=== PATIENT | male | born 1955 | race Caucasian/White ===

== ENCOUNTER → 2020-07-23 10:00 | Outpatient (BNVA) | payer MEDICARE, SELFPAY | PROVIDERS: PCP Hospitalist; Visit Provider Nurse Practitioner | DX: D12.6 Benign neoplasm of colon, unspecified (principal) | CPT/HCPCS: Q3014 ==

== ENCOUNTER 2020-09-09 18:48 | Emergency (ER) | payer BC, SELFPAY ==
--- NOTE | ~2020-09-09 | US_ITS ---
EXAMINATION: US VENOUS ULTRASOUND WITH DOPPLER LOWER EXTREMITY, RIGHT CLINICAL INFORMATION: Redness, warmth, and swallowing COMPARISON: None TECHNIQUE: Ultrasound of the deep veins is performed from the hip to the calf with compression sonography and color and pulse Doppler assessment. Spectral analysis with color-flow imaging is performed. FINDINGS: There is normal venous compression and respiratory variation and augmented flow to the deep venous system. The visualized common femoral vein, superficial femoral vein, profunda femoral vein, popliteal vein, and the trifurcation region shows no evidence of deep venous thrombosis. There is a small 3.4 x 1.0 x 2.6 cm Garcia cyst incidentally noted. Prominent lymph nodes seen in the right groin. There is superficial thrombus seen within a varicose vein along the medial distal thigh extending to the area of the knee. This corresponds to the area of patient's pain and redness US/US venous duplex LE RT IMPRESSION: No deep venous thrombosis demonstrated in the right lower extremity however there does appear to be superficial thrombus within a superficial varicose vein corresponding to the area of the patient's redness and pain. This critical result was discussed with Dr Smith at 09/09/2020 10:48 PM and it was ascertained that the content and urgency of the report was understood at the time of direct communication.
[2020-09-09 20:30] VITALS: BP 142/110; PULSE 84; RESP 18; TEMP 37; O2SAT 98; BMI 33.6
[2020-09-09 21:00] LABS: MANUAL DIFF FLAG NO
[2020-09-09 21:01] LABS: Basophils Absolute Auto 0.1 X10*3/uL (0.0-0.2); Basophils Percent Auto 0.6 % (0-2); Eosinophils Absolute Auto 0.3 X10*3/uL (0.0-0.4); Eosinophils Percent Auto 2.9 % (0-4); Hematocrit 46.1 % (42-52); Hemoglobin 15.1 g/dl (14.0-18.0); Imm Gran Abs Auto 0.03 X10*3/uL (0.00-0.03); Imm Gran Pct Auto 0.3 % (0.0-0.4); Lymphocytes Absolute Auto 3.7 X10*3/uL (1.2-4.9); Lymphocytes Percent Auto 34.5 % (20-40); Mean Corpuscular HGB Conc 32.8 g/dl (31.0-36.0); Mean Corpuscular Hemoglobin 31.6 pg (27.0-33.0); Mean Corpuscular Volume 96.4 fL (80-98); Monocytes Absolute Auto 1.5 X10*3/uL (0.1-1.2); Monocytes Percent Auto 13.5 % (2-11); Neutrophils Absolute Auto 5.2 X10*3/uL (2.0-8.3); Neutrophils Percent Auto 48.2 % (45-73); Platelet Count 273 X10*3/uL (160-400); Red Blood Count 4.78 X10*6/uL (4.60-5.80); Red Cell Distribution Width 13.3 % (11.0-16.0); White Blood Count 10.8 X10*3/uL (4.8-10.8)
[2020-09-09 21:22] LABS: Prothrombin Time 12.4 SEC (10.8-13.0)
[2020-09-09 21:24] LABS: Partial Thromboplastin Time 35.1 SEC (24.1-38.0)
[2020-09-09 21:32] LABS: Alanine Aminotransferase 23 U/L (0-40); Albumin Level 4.2 g/dL (3.5-5.0); Alkaline Phosphatase 92 U/L (39-117); Anion Gap 12 (12-20); Aspartate Amino Transferase 14 U/L (5-37); Bilirubin Total 0.3 mg/dL (0.0-1.0); Blood Urea Nitrogen 18 mg/dL (9-16); Calcium 9.1 mg/dL (8.4-10.2); Carbon Dioxide 28 mmol/L (22-29); Chloride 107 mmol/L (96-108); Creatinine Clr Calc Pharmacy 78.5; Estimated Glomerular Filt Rate 59; Glucose Random 87 mg/dL (60-115); Sodium 143 mmol/L (135-145); Total Protein 6.9 g/dL (6.5-8.0)
--- NOTE | 2020-09-09 23:07 | ED_ITS ---
HPI - General Adult General Chief complaint: Skin/Abscess/Foreign Body Stated complaint: ? blood clot Time Seen by Provider: 09/09/20 22:49 Source: patient Mode of arrival: ambulatory Limitations: no limitations History of Present Illness HPI narrative: 65-year-old man who presents emergency department for evaluation of pain in his right lower extremity for 2 weeks. The patient states that he has a varicose vein his right lower extremity. He states that he developed a pain in his pretibial area of his right leg just below the knee. He states that the pain traveled up above his knee to the area where had the varicose vein. He states that the area with the varicose vein is is now swollen, red and warm to t he touch. He states that he has mild pain in this area constantly but if he pushes on the area the pain is severe and 8/10. He denied fever, chills, chest pain, shortness of breath, dyspnea on exertion. The patient states that he had a cellulitis of his upper extremity in the past and had a PICC line which then developed a DVT of his right upper extremity. He did require anticoagulant therapy for this DVT. Related Data Previous Rx's Medication Instructions Recorded bisacodyl 5 mg tablet,delayed 10 mg PO BEDTIME 2 Days #4 tab 07/23/20 release polyethylene glycol 3350 17 238 g PO ONCE 1 Days #238 g 07/23/20 gram/dose oral powder cephalexin 500 mg PO QID 7 Days #28 cap 09/09/20 Allergies Allergy/AdvReac Type Severity Reaction Status Date / Time No Known Allergies Allergy Verified 09/09/20 20:30 [No Known Allergies*] Review of Systems Review of Systems: Yes all other systems are reviewed and are negative [facility] Past Medical History [facility] Narrative: Patient has a history of COPD, cellulitis, right upper extremity DVT secondary to PICC line. The patient smokes 1/2 packs of ci garettes per day times 50 years, denies alcohol and drug use. Medical History Blood clot due to device, implant, or graft Cellulitis COPD (chronic obstructive pulmonary disease) Social History Social History Advance Directives: No Advance Directives Information Provided: No Physical Exam Vital Signs: Vital Signs: Last Vital Signs Temp 98.6 F 09/09/20 20:30 Pulse 84 09/09/20 20:30 Resp 18 09/09/20 20:30 BP 142/110 H 09/09/20 20:30 Pulse Ox 98 09/09/20 20:30 Body Mass Index 33.6 Const: General: cooperative Orientation/consciousness: oriented to person and oriented to place Limitations: no limitations HENMT: Head: Yes normal to inspection, Yes normocephalic and Yes atraumatic Ears: external ears normal General nose exam: Normal external nose present Face and sinus: Yes normal facial exam Mouth: Normal oral and palatal mucosa present Throat: Yes posterior oropharynx normal Eyes: Periorbital: periorbital findings normal Eyelids: Yes eyelids normal Conjunctivae: conjunctivae normal Sclerae: sclerae normal Corneas: corneas normal Pupils: Equal, round and reactive pupils present Direct Ophthalmoscopy: normal light reflex Neck: Neck: Yes full ROM, Yes no lymphadenopathy, Yes no meningeal signs, Yes trachea midline and Yes supple Chest: Chest palpation & inspection: normal inspection of the chest and normal palpation of entire chest wall Resp: Effort & Inspection: normal respiratory effort and able to speak in complete sentences Auscultation: clear to auscultation bilaterally Cardio: Rate: regular rate Rhythm: regular rhythm Heart sounds: S1 normal heart sound present, S2 normal heart sound present and no murmurs GI: Inspection: Yes normal to inspection Palpation (GI): Soft to palpation, nontender, no guarding, not rigid and No hepatosplenomegaly present : General: Yes no CVA tenderness Back/Spine/Pelvis: Back: no CVA tenderness Cervical Spine: normal cervical lordosis Thoracic/Lumbar Spine: thoracic and lumbar spine normal to inspection Skin: Lesions: no lesions Wounds: no wounds Neuro: General: oriented to person, oriented to place and no meningeal signs Cranial nerves: Yes CN's II-XII intact bilaterally and Yes Equal, round and reactive pupils present Cognition (Neuro): normal cognition Motor exam (neuro): 5/5 motor strength present throughout Extrem: Other: The patient has tenderness with palpation of a superficial vein just below the right knee. This tenderness progresses along the vein approximately to just above the medial aspect of the right knee where there is an area of increased warmth and erythema measuring 4 x 4 cm. The tenderness in this area is moderate to severe. Psych: Appearance: well kempt Mental Status: mental status grossly normal Speech and movement: Normal speech and movement present Affect: normal affect Attitude: cooperative Thought process: Normal thought process present Thought content: Normal thought content present Course Course Course Narrative: 65-year-old male who presents emergency department for evaluation of right lower extremity pain with increased erythema and warmth to an area just above his right knee. Physical examination does reveal tenderness along a superficial vein which starts below the right knee and extends medially to just above the right knee. The area above the right knee is warm to the touch with erythema measuring approximately 4 x 4 cm. Laboratory evaluation [place] [address]. PT, INR and PTT were normal. Doppler ultrasound revealed no DVT but there does appear to be a superficial thrombus with a superficial varicose vein corresponding to the area of the patient's redness and pain. The patient's presentation and findings are consistent with superficial thrombophlebitis. At this time I do not think patient needs anticoagulants. The patient does have some increased erythema and warmth and concerned that he may have cellulitis secondary to the superficial thrombophlebitis. Patient was given Keflex 500 mg orally and ibuprofen 600 mg orally in the emergency department. The patient was prescribed Keflex 500 mg 4 times a day for 7 days. He was advised to take ibuprofen Tylenol for pain and to use a heating pad on low for 20 minutes 4 to 6 times a day. Medical Decision Making Lab Data Result diagrams: 09/09/20 20:55 09/09/20 20:55 Labs: Lab Results 09/09/20 09/09/20 09/09/20 Range/Units 20:55 20:55 20:55 WBC 10.8 (4.8-10.8) X10*3/uL RBC 4.78 (4.60-5.80) X10*6/uL Hgb 15.1 (14.0-18.0) g/dl Hct 46.1 (42-52) % MCV 96.4 (80-98) fL MCH 31.6 (27.0-33.0) pg MCHC 32.8 (31.0-36.0) g/dl RDW 13.3 (11.0-16.0) % Plt Count 273 (160-400) X10*3/uL MPV 9.0 L (9.4-12.4) fL Immature Gran % (Auto) 0.3 (0.0-0.4) % Neut % (Auto) 48.2 (45-73) % Lymph % (Auto) 34.5 (20-40) % Obion % (Auto) 13.5 H (2-11) % Eos % (Auto) 2.9 (0-4) % Baso % (Auto) 0.6 (0-2) % Lymph # (Auto) 3.7 (1.2-4.9) X10*3/uL [place] # (Auto) 1.5 H (0.1-1.2) X10*3/uL Eos # (Auto) 0.3 (0.0-0.4) X10*3/uL Baso # (Auto) 0.1 (0.0-0.2) X10*3/uL Abs Immat Gran (auto) 0.03 (0.00-0.03) X10*3/uL Absolute Neuts (auto) 5.2 (2.0-8.3) X10*3/uL Absolute Nucleated RBC 0.000 (0.0-0.012) X10*3/uL Nucleated RBC % (auto) 0.0 (0.0-0.2) /100WBC PT 12.4 (10.8-13.0) SEC INR 1.0 (0.9-1.1) APTT 35.1 (24.1-38.0) SEC Sodium 143 (135-145) mmol/L Potassium 4.0 (3.3-5.1) mmol/L Chloride 107 (96-108) mmol/L Carbon Dioxide 28 (22-29) mmol/L Anion Gap 12 (12-20) BUN 18 H (9-16) mg/dL Creatinine 1.23 (0.5-1.4) mg/dL Estim Creat Clear Calc 78.5 Estimated GFR 59 Random Glucose 87 (60-115) mg/dL Calcium 9.1 (8.4-10.2) mg/dL Total Bilirubin 0.3 (0.0-1.0) mg/dL AST 14 (5-37) U/L ALT 23 (0-40) U/L Alkaline Phosphatase 92 (39-117) U/L Total Protein 6.9 (6.5-8.0) g/dL Albumin 4.2 (3.5-5.0) g/dL Discharge Plan Discharge Clinical Impression: Superficial phlebitis and thrombophlebitis of right lower extremity Cellulitis Qualifiers: Site of cellulitis: extremity Site of cellulitis of extremity: lower extremity Laterality: right Qualified Code(s): L03.115 - Cellulitis of right lower limb Patient Disposition: Home, Self-Care Instructions: Superficial Thrombophlebitis (ED) Additional Instructions: Your blood work was unremarkable. The Doppler ultrasound of your right lower extremity revealed no deep venous thrombosis which is reassuring. The Doppler ultrasound revealed that you have a superficial blood clot in the varicose vein in your right leg. I also believe that you may have a skin infection (cellulitis) secondary to the superficial blood clot. Take ibuprofen 200 mg pills, 3 pills every 6 hours as needed for pain. Take Tylenol (acetaminophen) 500 mg pills, 2 pills every 4 to 6 hours as needed for pain. Use a heating pad on low for 20 minutes 4 to 6 times a day on the area of pain to help increase the blood flow to this area and to help fight the infection. Follow-up with your doctor in 2 days. Please return to the emergency department if your symptoms get worse or if you develop any symptoms that are concerning to you. Prescriptions: New cephalexin 500 mg capsule 500 mg PO QID 7 Days Qty: 28 RF: 0 No Action bisacodyl [Dulcolax (bisacodyl)] 5 mg tablet,delayed release (DR/EC) 10 mg PO BEDTIME 2 Days Qty: 4 RF: 0 polyethylene glycol 3350 [Miralax] 17 gram/dose powder 238 g PO ONCE 1 Days Qty: 238 RF: 0
[2020-09-10] MEDS: Ibuprofen 600 MG TABLET PO (00:36)
[2020-09-10] MEDS: cephALEXin 500 MG CAPSULE PO (00:36)
== END 2020-09-10 00:39 | disposition home or self-care (01) ==
PROVIDERS: Emergency Provider Emergency Medicine Emergency Medical Services
DX: I80.01 Phlebitis and thrombophlebitis of superficial vessels of right lower extremity (principal); L03.115 Cellulitis of right lower limb; L53.9 Erythematous condition, unspecified; M79.661 Pain in right lower leg; Z86.718 Personal history of other venous thrombosis and embolism
CPT/HCPCS: 36415; 80053; 85025; 85610; 85730; 93971; 99283; 99284

== ENCOUNTER 2020-10-21 15:56 | Emergency (ER) | payer BC, SELFPAY ==
--- NOTE | ~2020-10-21 | XR_ITS ---
EXAMINATION: XR KNEE, LEFT CLINICAL INFORMATION: Knee injury COMPARISON: None TECHNIQUE: Four views of the left knee. FINDINGS: Bones and soft tissues are normal. No fracture or joint effusion. Alignment is anatomic. Mild medial compartment joint space narrowing.. No abnormal soft tissue calcification. 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 No acute traumatic findings.
--- NOTE | ~2020-10-21 | US_ITS ---
EXAMINATION: US VENOUS ULTRASOUND WITH DOPPLER LOWER EXTREMITY, LEFT CLINICAL INFORMATION: Leg pain COMPARISON: None TECHNIQUE: Ultrasound of the deep veins is performed from the hip to the calf with compression sonography and color and pulse Doppler assessment. Spectral analysis with color-flow imaging is performed. FINDINGS: There is normal venous compression and respiratory variation and augmented flow. The visualized common femoral vein, superficial femoral vein, profunda femoral vein, popliteal vein, and the trifurcation region shows no evidence of deep venous thrombosis. There is no significant popliteal fossa cyst. If the patient's symptoms persist, followup ultrasound in 5 days 7 days might be of value to exclude proximal propagation from a non-visualized calf vein. US/US venous duplex LE LT IMPRESSION: No DVT demonstrated in the left lower extremity.
[2020-10-21 16:57] VITALS: BP 146/91; PULSE 88; RESP 18; TEMP 36.6; O2SAT 98; BMI 34.6
[2020-10-21 18:22] VITALS: BP 147/88; PULSE 86; RESP 14; O2SAT 98
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
--- NOTE | 2020-10-21 20:09 | PC.NURSE ---
ANNE WRAP APPLIED TO L KNEE FOR COMFORT.
== END 2020-10-21 20:13 | disposition home or self-care (01) ==
PROVIDERS: Emergency Provider Internal Medicine
DX: S83.92XA Sprain of unspecified site of left knee, initial encounter (principal); Z86.718 Personal history of other venous thrombosis and embolism; X58.XXXA Exposure to other specified factors, initial encounter; Y93.9 Activity, unspecified; Y92.9 Unspecified place or not applicable; Y99.9 Unspecified external cause status
CPT/HCPCS: 73564; 93971; 99283; 99284

== ENCOUNTER 2022-06-11 11:47 | Emergency (ER) | payer MEDICARE, SELFPAY ==
--- NOTE | ~2022-06-11 | XR_ITS ---
EXAMINATION: XR HIP RIGHT WITH PELVIS XR LUMBAR SPINE CLINICAL INFORMATION: Lower back pain and hip pain. COMPARISON: None TECHNIQUE: Lumbar spine, 3 views Pelvis, AP view Right hip, 2 views FINDINGS: LUMBAR SPINE: No acute findings. The lumbar vertebra are of normal height and alignment with exception of minimal degenerative retrolisthesis of L2 on L3. The intervertebral disc spaces are well-preserved at L1-L2 and L5-S1. Otherwise, mild to moderate degenerative disc space loss and large osteophytes of the lumbar spine. There is facet arthropathy of L3-L4 and L4-L5. No suspicious bone lesion. There are likely enthesophytes at the anterosuperior aspect of each sacroiliac joint. Sacral ala and sacroiliac joints are intact. There is mild atherosclerotic calcification of the aorta. Normal bowel gas pattern. Surgical clips are present in the pelvis. PELVIS AND RIGHT HIP: Pelvic bones have normal alignment. No suspicious bone lesions. The pubic symphysis is normal. There are osteophytes of both hips. The 2 views the right hip show the femoral head to be well-positioned within the intact acetabulum. There appears to be mild superomedial narrowing of the joint space. No evidence of fracture or osteonecrosis. XR/XR lumbar spine 4V min IMPRESSION: * No acute abnormalities. * No compression fractures within the moderately degenerated lumbar spine. * Mild-to moderate osteoarthritis of the hips.
--- NOTE | ~2022-06-11 | XR_ITS ---
EXAMINATION: XR HIP RIGHT WITH PELVIS XR LUMBAR SPINE CLINICAL INFORMATION: Lower back pain and hip pain. COMPARISON: None TECHNIQUE: Lumbar spine, 3 views Pelvis, AP view Right hip, 2 views FINDINGS: LUMBAR SPINE: No acute findings. The lumbar vertebra are of normal height and alignment with exception of minimal degenerative retrolisthesis of L2 on L3. The intervertebral disc spaces are well-preserved at L1-L2 and L5-S1. Otherwise, mild to moderate degenerative disc space loss and large osteophytes of the lumbar spine. There is facet arthropathy of L3-L4 and L4-L5. No suspicious bone lesion. There are likely enthesophytes at the anterosuperior aspect of each sacroiliac joint. Sacral ala and sacroiliac joints are intact. There is mild atherosclerotic calcification of the aorta. Normal bowel gas pattern. Surgical clips are present in the pelvis. PELVIS AND RIGHT HIP: Pelvic bones have normal alignment. No suspicious bone lesions. The pubic symphysis is normal. There are osteophytes of both hips. The 2 views the right hip show the femoral head to be well-positioned within the intact acetabulum. There appears to be mild superomedial narrowing of the joint space. No evidence of fracture or osteonecrosis. XR/XR hip RT w PEL1V IMPRESSION: * No acute abnormalities. * No compression fractures within the moderately degenerated lumbar spine. * Mild-to moderate osteoarthritis of the hips.
[2022-06-11 11:58] VITALS: BP 126/82; PULSE 97; RESP 20; TEMP 36.7; O2SAT 97; BMI 33.9
--- NOTE | 2022-06-11 11:58 | ED.BACK ---
HPI - Back Pain/Injury General Chief Complaint: Extremity Problem <BERRY Call - Last Filed: 06/11/22 12:03> Stated Complaint: leg , back pain <BERRY Call Last Filed: 06/11/22 12:03> Time Seen by Provider: 06/11/22 13:40 <BERRY Call - Last Filed: 06/11/22 12:03> Source: patient <BERRY Peres - Last Filed: 06/12/22 09:14> Mode of arrival: ambulatory <BERRY Peres - Last Filed: 06/12/22 09:14> History of Present Illness HPI Narrative: 67-year-old male with a past medical history of cellulitis, COPD, presenting to the ED complaining of right-sided low back/hip/buttock pain radiating down right lower extremity intermittent since last week. Reports symptoms started after playing golf on vacation in [place]. Has been seeing chiropractor with minimal relief. Reports intermittent paresthesias down RLE. Denies direct injury/trauma or fall, numbness, weakness, urinary incontinence/retention, fever, hematuria/dysuria, flank pain <BERRY Peres - Last Filed: 06/12/22 09:14> MD elicited complaint: back pain <BERRY Peres - Last Filed: 06/12/22 09:14> Onset (ago): week(s) <BERRY Peres - Last Filed: 06/12/22 09:14> Related Data Home Medications: Previous Rx's Medication Instructions Recorded bisacodyl 5 mg tablet,delayed 10 mg PO BEDTIME 2 days #4 tabs 07/23/20 release (Dulcolax (bisacodyl)) polyethylene glycol 3350 17 238 g PO ONCE 1 day #238 grams 07/23/20 gram/dose oral powder (Miralax) cephalexin 500 mg capsule 500 mg PO QID 7 days #28 caps 09/09/20 acetaminophen 500 mg tablet 500 mg PO Q6H PRN fever or pain 06/11/22 (Tylenol Extra Strength) #14 tabs cyclobenzaprine 5 mg tablet 5 mg PO Q8H PRN pain (scale score 06/11/22 7-10) 5 days #14 tabs lidocaine 5 % topical patch 1 patch topical DAILY PRN pain #30 06/11/22 (Lidoderm) ea naproxen 500 mg tablet 500 mg PO BID PRN pain 10 days #20 06/11/22 tabs <BERRY Call - Last Filed: 06/11/22 12:03> Allergies/Adverse Reactions: Allergies Allergy/AdvReac Type Severity Reaction Status Date / Time No Known Allergies Allergy Verified 10/21/20 16:57 [No Known Allergies*] <BERRY Call - Last Filed: 06/11/22 12:03> Review of Systems Review of Systems: Constitutional: No Fever, No Chills ENT/Mouth: No Ear Pain, No Nasal Congestion, No sore throat, No Rhinorrhea, No Swallowing Difficulty Cardiovascular: No Chest Pain, No SOB Respiratory: No Cough, No Sputum Gastrointestinal: No Nausea, No Vomiting, No Diarrhea, No Constipation, No Abdominal pain Genitourinary: No Dysuria, No Urinary Frequency, No Hematuria, No Urinary Incontinence/retention, No Flank Pain Musculoskeletal: + joint pain, No Myalgias, No Joint Swelling Skin: No Skin Lesions, No rash Neuro: No Weakness, No Numbness, + Paresthesias <BERRY Peres - Last Filed: 06/12/22 09:14> Yes all other systems are reviewed and are negative <BERRY Peres - Last Filed: 06/12/22 09:14> Constitutional: Constitutional: Reports as per HPI <BERRY Peres - Last Filed: 06/12/22 09:14> COUNT INCLUDES THE [facility] Past Medical History Attestation statement: The following information was validated with the patient. <BERRY Peres - Last Filed: 06/12/22 09:14> Medical History: Medical History Blood clot due to device, implant, or graft Cellulitis COPD (chronic obstructive pulmonary disease) <BERRY Call - Last Filed: 06/11/22 12:03> Social History Social History: Social History Advance Directives: No <BERRY Call - Last Filed: 06/11/22 12:03> Physical Exam Vital Signs: Vital Signs: Last Vital Signs Temp 98.0 F 06/11/22 11:58 Pulse 97 06/11/22 11:58 Resp 20 06/11/22 11:58 BP 126/82 06/11/22 11:58 Pulse Ox 97 06/11/22 11:58 O2 Del Method 06/11/22 11:58 BMI result Body Mass Index 33.9 <BERRY Call - Last Filed: 06/11/22 12:03> Vital Signs: Last Vital Signs Temp 98.0 F 06/11/22 11:58 Pulse 97 06/11/22 11:58 Resp 20 06/11/22 11:58 BP 126/82 06/11/22 11:58 Pulse Ox 97 06/11/22 11:58 O2 Del Method 06/11/22 11:58 BMI result Body Mass Index 33.9 <BERRY Peres - Last Filed: 06/12/22 09:14> Vital Signs: Last Vital Signs Temp 98.0 F 06/11/22 11:58 Pulse 97 06/11/22 11:58 Resp 20 06/11/22 11:58 BP 126/82 06/11/22 11:58 Pulse Ox 97 06/11/22 11:58 O2 Del Method 06/11/22 11:58 BMI result Body Mass Index 33.9 <Bert Burns MD - Last Filed: 06/18/22 16:30> Const: General: cooperative, healthy appearing and no acute distress <BERRY Peres - Last Filed: 06/12/22 09:14> Orientation/consciousness: patient oriented x3 <BERRY Peres - Last Filed: 06/12/22 09:14> Limitations: no limitations <BERRY Peres - Last Filed: 06/12/22 09:14> HEENT: Head: Yes normal to inspection and Yes atraumatic <BERRY Peres - Last Filed: 06/12/22 09:14> Ears: hearing grossly normal bilaterally <BERRY Peres - Last Filed: 06/12/22 09:14> General nose exam: Normal external nose present <BERRY Peres - Last Filed: 06/12/22 09:14> Face and sinus: Yes normal facial exam <Amanda Sherisera PA - Last Filed: 06/12/22 09:14> Eyes: General: appearance normal, both eyes and all related structures <Amanda Sherisera PA - Last Filed: 06/12/22 09:14> EOM: EOMs intact bilaterally <Amanda Sherisera PA - Last Filed: 06/12/22 09:14> Neck: Neck: Yes normal visual inspection and Yes no meningeal signs <Amanda Sherisera PA - Last Filed: 06/12/22 09:14> Resp: Effort & Inspection: normal respiratory effort and no respiratory distress <Amanda Sherisera PA - Last Filed: 06/12/22 09:14> Cardio: Rate: regular rate <Amanda Sherisera PA - Last Filed: 06/12/22 09:14> Heart sounds: S1 normal heart sound present and S2 normal heart sound present <Amanda Sherisera PA - Last Filed: 06/12/22 09:14> GI: Inspection: Yes normal to inspection <Amanda Sherisera PA - Last Filed: 06/12/22 09:14> Palpation (GI): Soft to palpation, nontender, no guarding and not rigid <Amanda Sherisera PA - Last Filed: 06/12/22 09:14> : General: Yes no CVA tenderness <Amanda Sherisera PA - Last Filed: 06/12/22 09:14> Back/Spine/Pelvis: Other: No midline thoracic/lumbar spinous tenderness/step-off or deformity. + right-sided lumbar paraspinal/MSK and right buttock tenderness to palpation reproducing subjective complaint. No erythema/ecchymosis or crepitus. Full range of motion intact with pain. Neurovascular intact distally. <Amanda Donaldson PA - Last Filed: 06/12/22 09:14> Back: no CVA tenderness <Amanda Donaldson PA - Last Filed: 06/12/22 09:14> Skin: Rashes: no rashes <Amanda Donaldson PA - Last Filed: 06/12/22 09:14> Wounds: no wounds <Amanda Poulsera PA - Last Filed: 06/12/22 09:14> Neuro: Other: Strength intact throughout. No saddle anesthesia. Sensation intact to light touch. Neurovascular intact distally <BERRY Peres - Last Filed: 06/12/22 09:14> General: patient oriented x3, gait normal, tone normal, moves all extremities, no meningeal signs and no focal motor deficits <BERRY Peres - Last Filed: 06/12/22 09:14> Gait exam (Neuro): Normal gait present <BERRY Peres Last Filed: 06/12/22 09:14> Extrem: General: Yes normal to inspection <BERRY Peres - Last Filed: 06/12/22 09:14> Course Course Course Narrative: RME- 12:03pm 67yoM with a past medical history of COPD who is a daily smoker, DVT, kidney stone, anxiety who is presenting to the ER with complaints of lower back pain that radiates to his right hip/buttocks and right lower leg that has been intermittent since February. Reports he has been seen a chiropractor and is providing mild to no symptomatic relief. Reports that he does go off. Denies any recent falls. Denies history of cancer, fevers, urinary bowel incontinence or retention, IV drug use, abdominal pain, nausea/vomiting, hematuria, dysuria, lower extremity edema or any other symptoms complaints or concerns at this time. Plan: Will obtain lumbar and right hip x-ray patient will be sent back to the waiting room to be evaluated in [facility]. <BERRY Call - Last Filed: 06/11/22 12:03> RME- 12:03pm 67yoM with a past medical history of COPD who is a daily smoker, DVT, kidney stone, anxiety who is presenting to the ER with complaints of lower back pain that radiates to his right hip/buttocks and right lower leg that has been intermittent since February. Reports he has been seen a chiropractor and is providing mild to no symptomatic relief. Reports that he does go off. Denies any recent falls. Denies history of cancer, fevers, urinary bowel incontinence or retention, IV drug use, abdominal pain, nausea/vomiting, hematuria, dysuria, lower extremity edema or any other symptoms complaints or concerns at this time. Plan: Will obtain lumbar and right hip x-ray patient will be sent back to the waiting room to be evaluated in [facility]. XR lumbar spine 4V min/XR hip RT w PEL1V IMPRESSION: *? No acute abnormalities. *? No compression fractures within the moderately degenerated lumbar spine. *? Mild-to moderate osteoarthritis of the hips. >1511--patient reports symptomatic improvement after IM Toradol and p.o. Flexeril given in the ED Results discussed with patient including worrisome signs and symptoms and strict return precautions, and when to return to the emergency department. They verbalized understanding and feel safe for discharge at this time. <BERRY Peres - Last Filed: 06/12/22 09:14> Medications Administered Discontinued Medications Generic Name Dose Route Start Last Admin Trade Name Freq PRN Reason Stop Dose Admin Cyclobenzaprine HCl 10 mg 06/11/22 13:59 06/11/22 14:25 Cyclobenzaprine Hcl 10 Mg Tablet PO 06/11/22 14:00 10 mg ONCE ONE Administration Ketorolac Tromethamine 30 mg 06/11/22 13:59 06/11/22 14:25 Ketorolac Tromethamine 30 Mg/Ml Vial IM 06/11/22 14:00 30 mg ONCE ONE Administration Lidocaine 1 patch 06/11/22 13:59 06/11/22 14:25 Lidocaine 4 % Patch Adh..Patch TRANSDERMA 06/11/22 14:00 1 patch ONCE ONE Administration Protocol <BERRY Call - Last Filed: 06/11/22 12:03> Medications Administered Discontinued Medications Generic Name Dose Route Start Last Admin Trade Name Freq PRN Reason Stop Dose Admin Cyclobenzaprine HCl 10 mg 06/11/22 13:59 06/11/22 14:25 Cyclobenzaprine Hcl 10 Mg Tablet PO 06/11/22 14:00 10 mg ONCE ONE Administration Ketorolac Tromethamine 30 mg 06/11/22 13:59 06/11/22 14:25 Ketorolac Tromethamine 30 Mg/Ml Vial IM 06/11/22 14:00 30 mg ONCE ONE Administration Lidocaine 1 patch 06/11/22 13:59 06/11/22 14:25 Lidocaine 4 % Patch Adh..Patch TRANSDERMA 06/11/22 14:00 1 patch ONCE ONE Administration Protocol <BERRY Peres - Last Filed: 06/12/22 09:14> Medications Administered Discontinued Medications Generic Name Dose Route Start Last Admin Trade Name Corinne PRN Reason Stop Dose Admin Cyclobenzaprine HCl 10 mg 06/11/22 13:59 06/11/22 14:25 Cyclobenzaprine Hcl 10 Mg Tablet PO 06/11/22 14:00 10 mg ONCE ONE Administration Ketorolac Tromethamine 30 mg 06/11/22 13:59 06/11/22 14:25 Ketorolac Tromethamine 30 Mg/Ml Vial IM 06/11/22 14:00 30 mg ONCE ONE Administration Lidocaine 1 patch 06/11/22 13:59 06/11/22 14:25 Lidocaine 4 % Patch Adh..Patch TRANSDERMA 06/11/22 14:00 1 patch ONCE ONE Administration Protocol <Bert Burns MD - Last Filed: 06/18/22 16:30> Medical Decision Making Medical Decision Making MDM Narrative: 67-year-old male with a past medical history of cellulitis, COPD, presenting to the ED complaining of right-sided low back/hip/buttock pain radiating down right lower extremity intermittent since last week. On exam vital signs stable, NAD, nontoxic appearing, no focal neuro deficits, no midline spinous tenderness or red flag symptoms. Concern for sciatica vs MSK pain/strain vs osteoarthritis. Lower suspicion for fracture, cauda equina, cord compression, epidural abscess Plan: X-rays ordered in triage, pain control Please refer to course for remaining clinical decision making, interpretation of labs/imaging results, and discussions with consultants and/or family members. <BERRY Peres - Last Filed: 06/12/22 09:14> Differential Diagnosis Differential Diagnoses: The differential diagnosis associated with the presentation includes <BERRY Peres - Last Filed: 06/12/22 09:14> as above <BERRY Peres - Last Filed: 06/12/22 09:14> Radiology Impression Discussion of test interpretation with radiology: I have reviewed the radiologist's reading. <BERRY Peres - Last Filed: 06/12/22 09:14> Prescription Management I considered prescription management with: Pain Medication <BERRY Peres - Last Filed: 06/12/22 09:14> Chronic Conditions Patient?s care impacted by: Other <BERRY Peres - Last Filed: 06/12/22 09:14> Attestation Attending Attestation: I reviewed SENIOR STORAGE ADMINISTRATOR/PA/Resident note, assessment and plan. I agree with the documentation, assessment and plan unless otherwise stated. <Bert Burns MD - Last Filed: 06/18/22 16:30> Discharge Plan Discharge Clinical Impression: Low back pain, Osteoarthritis <BERRY Call - Last Filed: 06/11/22 12:03> Patient Disposition: Home, Self-Care <BERRY Call - Last Filed: 06/11/22 12:03> Instructions: Osteoarthritis (ED), Acute Low Back Pain (ED) <BERRY Call - Last Filed: 06/11/22 12:03> Additional Instructions: Your pain is likely musculoskeletal Flexeril is a muscle relaxer, take at night as it makes you drowsy, do not drive, drink alcohol, or operate machinery while taking it Naproxen as an anti-inflammatory / pain medication, take with food Lidoderm patches are numbing patches, apply to painful area In addition take Tylenol at home If symptoms persist or worsen, pain becomes unbearable, you developed urinary retention or incontinence, or weakness return to the ED <BERRY Call - Last Filed: 06/11/22 12:03> Prescriptions: New acetaminophen [Tylenol Extra Strength] 500 mg tablet 500 mg PO Q6H PRN (Reason: fever or pain) Qty: 14 0RF lidocaine [Lidoderm] 5 % adhesive patch,medicated 1 patch topical DAILY MDD remove after 12 hours PRN (Reason: pain) Qty: 30 0RF Rx Instructions: leave on most painful area for up to 12 hrs naproxen 500 mg tablet 500 mg PO BID PRN (Reason: pain) 10 Days Qty: 20 0RF cyclobenzaprine 5 mg tablet 5 mg PO Q8H PRN (Reason: pain (scale score 7-10)) 5 Days Qty: 14 0RF No Action cephalexin 500 mg capsule 500 mg PO QID 7 Days Qty: 28 0RF bisacodyl [Dulcolax (bisacodyl)] 5 mg tablet,delayed release (DR/EC) 10 mg PO BEDTIME 2 Days Qty: 4 0RF polyethylene glycol 3350 [Miralax] 17 gram/dose powder 238 g PO ONCE 1 Days Qty: 238 0RF <BERRY Call - Last Filed: 06/11/22 12:03> Referrals: Physician,Unknown J [Primary Care Provider] - <BERRY Call - Last Filed: 06/11/22 12:03> Interventions: ED Discharge Assessment Last Done: 06/11/22 15:21 <BERRY Call - Last Filed: 06/11/22 12:03> Discharge Date/Time: 06/11/22 15:22 <BERRY Call - Last Filed: 06/11/22 12:03>
[2022-06-11] MEDS: Lidocaine 4 % Patch ADH..PATCH 1 PATCH TRANSDERMA (14:25)
[2022-06-11] MEDS: Ketorolac Tromethamine 30 MG/ML VIAL IM (14:25)
[2022-06-11] MEDS: Cyclobenzaprine HCl 10 MG TABLET PO (14:25)
== END 2022-06-11 15:22 | disposition home or self-care (01) ==
PROVIDERS: Emergency Provider Emergency Medicine
DX: M54.50 Low back pain, unspecified (principal); M25.552 Pain in left hip; M25.551 Pain in right hip; Z79.899 Other long term (current) drug therapy
CPT/HCPCS: 72110; 73502; 96372; 99283; 99284; J1885

== ENCOUNTER 2022-08-24 12:58 | Outpatient (RCR) | payer MEDICARE, SELFPAY ==
--- NOTE | 2022-10-08 09:27 | MHC.PT.DC ---
[facility] [place] Office [place] Office [place] Office [address] Prabhjot Faria [address] [phone] F: [phone] F: [phone] F: [phone] F: [phone] Physical Therapy Discharge Report Diagnosis: LOW BACK PAIN Date of Surgery: Date of Evaluation: 08/24/22 Date of Discharge: 10/08/22 Treatments to Date: 1 Cancellations to Date: 2 No Shows to Date: 2 Discharge Status: Visit Non-compliance Discharge Summary: ATTENDED INITIAL EVAL ONLY, CANCELLED/NO SHOWED FOR REMAINING VISITS Electronically signed by: SAMANTA ODOM PT DPT Please sign and return to therapist. Thank you for your referral.
== END 2022-10-08 09:27 | disposition home or self-care (01) ==
LOC: HO.PT 12:58
PROVIDERS: PCP Physician Assistant; Visit Provider Physician Assistant
DX: M51.9 Unspecified thoracic, thoracolumbar and lumbosacral intervertebral disc disorder (principal); M54.31 Sciatica, right side
CPT/HCPCS: 97110; 97161

== ENCOUNTER 2022-09-14 10:32 | Outpatient (REF) | payer MEDICARE, SELFPAY ==
[2022-09-14 12:12] LABS: Hematocrit 49.7 % (42.0-52.0); Hemoglobin 16.8 g/dl (14.0-18.0); Mean Corpuscular HGB Conc 33.8 g/dl (31.0-36.0); Mean Corpuscular Hemoglobin 31.9 pg (27.0-33.0); Mean Corpuscular Volume 94.5 fL (80.0-98.0); Mean Platelet Volume 9.7 fL (9.4-12.4); Platelet Count 332 X10*3/uL (160-400); Red Blood Count 5.26 X10*6/uL (4.60-5.80); Red Cell Distribution Width 13.4 % (11.0-16.0); White Blood Count 10.4 X10*3/uL (4.8-10.8)
[2022-09-14 12:49] LABS: Alanine Aminotransferase 32 U/L (0-40); Albumin Level 4.2 g/dL (3.5-5.0); Alkaline Phosphatase 102 U/L (39-117); Anion Gap 13 (12-20); Aspartate Amino Transferase 24 U/L (5-37); Bilirubin Total 0.6 mg/dL (0.0-1.0); Blood Urea Nitrogen 26 mg/dL (9-16); Calcium 9.7 mg/dL (8.4-10.2); Carbon Dioxide 28 mmol/L (22-29); Chloride 106 mmol/L (96-108); Cholesterol 236 mg/dL; Estimated Glomerular Filt Rate > 60; Glucose Fasting 100 mg/dL (60-99); HDL Cholesterol 35 mg/dL; LDL Cholesterol Calculated 157 mg/dl; Potassium 4.7 mmol/L (3.3-5.1); Sodium 142 mmol/L (135-145); Total Protein 6.7 g/dL (6.5-8.0); Triglycerides 224 mg/dL
[2022-09-14 13:09] LABS: Prostate Specific Antigen Scr 0.52 ng/mL (<0.05-4.0)
== END 2022-09-14 10:33 | disposition home or self-care (01) ==
LOC: HO.LAB 10:32
PROVIDERS: PCP Physician Assistant; Visit Provider Physician Assistant
DX: E66.09 Other obesity due to excess calories (principal); J43.2 Centrilobular emphysema; Z13.1 Encounter for screening for diabetes mellitus; Z12.5 Encounter for screening for malignant neoplasm of prostate; Z68.33 Body mass index [BMI] 33.0-33.9, adult; F17.200 Nicotine dependence, unspecified, uncomplicated; E66.9 Obesity, unspecified; J44.9 Chronic obstructive pulmonary disease, unspecified; Z86.718 Personal history of other venous thrombosis and embolism
CPT/HCPCS: 36415; 80053; 80061; 84153; 84443; 85027

== ENCOUNTER 2022-12-16 09:47 | Outpatient (AMB) | payer MEDICARE, SELFPAY ==
--- NOTE | 2022-12-16 10:22 | A.SPINEOV_ITS ---
Intake Intake Visit Reasons: Radiculopathy Intake Note: Mr. Chan is here today for low back pain. MRI Preflight Mechanic Required: No Allergies No Known Allergies [No Known Allergies*] Allergy (Verified 09/17/22 15:46) Assessment & Plan Assessment & Plan (1) Synovial cyst of lumbar facet joint: Code(s): M71.38 - Other bursal cyst, other site (2) Lumbar spinal stenosis: Code(s): M48.061 - Spinal stenosis, lumbar region without neurogenic claudication (3) Right sided sciatica: Code(s): M54.31 - Sciatica, right side Plan Dear colleague, Thank you for referring Manjit Chan to the office today with a chief complaint of severe right leg pain HPI: This 67-year-old male developed severe right leg pain on 06/03/2022 he had been golfing the days before and on the morning of June 03 he woke up with severe pain radiating down his buttock and posterior thigh. The pain was and is intense /10. He describes the pain as a burning sensation. Now the pain also goes down to his calf. The left side is unaffected. His quality of life is affected. He mostly sits at home due to the pain. He has done physical therapy chiropractic therapy and 2 injections. The injection gave him 1 day relief. The 2nd injection provided no relief. He denies weakness. PMH: Appendectomy, COPD, tobacco dependence Social history: . 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 Medications: None Allergies: NKDA Physical Exam: Pleasant male in obvious agony. He sits in a deviated position towards the left side to relieve his right leg pain. He ambulates with a limp. Straight leg raise is positive on the right side with radiating pain down his right leg. Sensory exam is disturbed over the L5/S1 dermatome. The right Achilles reflex seems lower than the left one. No pathological reflexes. Radiological Studies: MRI done at [facility] on 08/18/2022 shows a large extradural synovial cyst compressing on the right S1 nerve root, severe L4-5 stenosis with lateral recess stenosis compressing the right L5 nerve root and moderate L3-4 central stenosis. An x-ray of the lumbar spine shows no signs of instability. Impression/Plan: In summary, at this patient is suffering from severe lumbar radiculopathy in an S1/L5 distribution conservative treatment failed. Therefore offered him a right L4-5 laminotomy partial facetectomy to decompress the right L5 nerve root and a right L5-S1 hemilaminotomy with removal of the synovial cyst to decompress the S1 nerve root. He is scheduled for 01/28/2023. I am trying to open up spot for early December. He will visit his primary care physician for preoperative clearance. Thank you for allowing me to participate in your patients care. total time spent was 50 minutes in counseling ,coordination of plan, personal review of imaging, surgical decision making and subsequent plan Darwin Chiang MD, PhD Spine Fellowship Trained Neurosurgeon Director, [facility] On 12/16/2022, I saw your patient Darien Chan with a chief complaint of severe right leg pain. Coding Level of Care Code New Pt Level 4 (25511) Diagnoses Synovial cyst of lumbar facet joint M71.38 Lumbar spinal stenosis M48.061 Right sided sciatica M54.31
== END 2022-12-16 11:04 | disposition home or self-care (01) ==
PROVIDERS: PCP Physician Assistant; Referring Provider Student in an Organized Health Care Education/Training Program; Visit Provider Neurological Surgery
DX: M71.38 Other bursal cyst, other site (principal); M48.061 Spinal stenosis, lumbar region without neurogenic claudication; M54.31 Sciatica, right side
CPT/HCPCS: 99204

== ENCOUNTER → 2022-12-16 09:47 | Outpatient (BNVA) | payer MEDICARE, SELFPAY | PROVIDERS: PCP Physician Assistant; Visit Provider Neurological Surgery | DX: M71.38 Other bursal cyst, other site (principal); M48.061 Spinal stenosis, lumbar region without neurogenic claudication; M54.31 Sciatica, right side | CPT/HCPCS: 99202 ==

== ENCOUNTER 2022-12-25 09:38 | Outpatient (AMB) | payer MEDICARE, SELFPAY ==
[2022-12-25 09:44] VITALS: BP 132/90; PULSE 112; O2SAT 96; BMI 31.2
--- NOTE | 2022-12-25 09:44 | A.OFFPC_ITS ---
Vital Signs 12/25/22 09:44 12/25/22 10:12 Height 6 ft Weight 230 lb BMI 31.2 BP 132/90 H 126/88 Blood Pressure Location Lt brachial Lt brachial Position Sitting Sitting Pulse 112 H Pulse Source Pulse Oximeter Temp Source Skin Pulse Oximetry (%) 96 Oxygen Delivery Method Room Air Intake Visit Reasons: Rt side sciatica Allergies No Known Allergies [No Known Allergies*] Allergy (Verified 12/25/22 10:00) Medication List - Last Reconciled 12/25/22 by SHOSHANA Alexandre tramadol 100 mg PO TID PRN Tobacco use date assessed: 12/25/22 Fall risk assessment: No Falls in past year Last assessed Fall Risk: 12/25/22 HPI Rt side sciatica HPI Details Patient is a 67-year-old male who presents today for preop clearance. Patient of BERRY Salinas. Surgery: Right L4-5 laminotomy partial facetectomy to decompress the right L5 nerve root and a right L5-S1 hemilaminotomy with removal of the synovial cyst to decompress the S1 nerve root per Dr. Chiang. Patient reports right sciatica pain since 05/2022, he reports intermittent tingling in his right leg. Tramadol prescribed by [facility] with no much improvement in right sciatica pain. Date: 12/30/22 Surgeon: Dr. Chiang Location: [place], [place] Anaesthesia: General. Patient reports history of general anesthesia in the past that he tolerated well. Patient denies history of perioperative hypothermia or blood clotting disorders. He is not on anticoagulation. Medical history significant for COPD-not on treatment, lumbar spinal stenosis, elevated fasting blood sugar, borderline high cholesterol, tobacco dependence- reports smoking 2 packs per day-encouraged smoking cessation, obesity. Patient denies shortness of breath or chest pain. [facility] Medical History Arthritis Back pain Blood clot due to device, implant, or graft Cellulitis COPD (chronic obstructive pulmonary disease) Edentulous Elevated cholesterol Lumbar spinal stenosis Tobacco dependence Surgical History H/O colonoscopy History of appendectomy Family History Other Substance use disorder Social History Housing: House Are you a primary child care attendant to a significant other at home: No Do you presently have visiting nurse or other home services: No Alcohol intake: former Patient Tobacco Use Status: Current everyday Tobacco user Tobacco use type: Cigarette Cigarette Packs Per Day: 2 Cigarettes Per Day: 40.0 Years Smoked: 50 e-Cigarette/Vaping Use: Never Used Second Hand Smoke Exposure: Yes Advance Directives Date on File: 11/21/13 service: No Current occupational status: retired Cognitive needs: No Hearing needs: No Vision needs: Yes (reading glasses) Questionnaire Thrive Questionnaire Date Thrive assessed: 09/17/22 AUDIT C Alcohol Use Questionnaire (AUDIT-C) 1. How often do you have a drink containing alcohol?: Never Total Score: 0 Score Reviewed/Action Taken: No SUZETTE-7 AMB Questionnaire SUZETTE-7 Date SUZETTE - 7 assessed: 09/17/22 Source: Developed by Drs. Jossue Causey, Mariola Paulino, Kuldeep Crow and colleagues, with an educational kristen from [employer]. Review of Systems Const Denies body aches, Denies chills, Denies fever(s), Denies headache(s) and Reports weight loss Eyes Denies change in vision ENT Denies dizziness, Denies otalgia, Denies headache(s), Denies nasal discharge, Denies sinus pain and Denies sore throat Card Denies chest pain, Denies edema, Denies lightheadedness and Denies dyspnea Resp Denies cough, Denies dyspnea and Denies wheezing GI Denies abdominal pain, Denies constipation, Denies diarrhea, Denies nausea and Denies vomiting Denies dysuria Musc Reports as per HPI, Reports back pain, Denies myalgias, Denies numbness and Reports tingling Skin/Breast Denies rash Neuro Denies dizziness, Denies headache(s), Denies numbness and Reports tingling Aller/Immun Denies wheezing Physical exam (Primary Care) Vital Signs: Last Vital Signs Pulse 112 H 12/25/22 09:44 BP 126/88 12/25/22 10:12 Pulse Ox 96 12/25/22 09:44 Oxygen Delivery Method Room Air 12/25/22 09:44 BMI result Body Mass Index 31.2 Tobacco/Smoking Status: Tobacco use Status Tobacco use date assessed 12/25/22 12/25/22 09:55 Patient Tobacco Use Status Current everyday Tobacco 12/25/22 09:55 Tobacco use type Cigarette 12/25/22 09:55 e-Cigarette/Vaping Use Never Used 12/25/22 09:55 Thrive Assessment: Date of Thrive Assessment Date Thrive assessed 09/17/22 12/25/22 09:55 Const General: cooperative and no acute distress Orientation/consciousness: patient oriented x3 HENMT Head: Yes normocephalic and Yes atraumatic Ears: TM's normal bilaterally Face and sinus: Yes sinuses nontender Mouth: oropharynx normal and moist mucous membranes Throat: Yes posterior oropharynx normal Eyes General: appearance normal, both eyes and all related structures Pupils: Equal, round and reactive pupils present EOM: EOMs intact bilaterally Neck Neck: Yes normal visual inspection, Yes full ROM and Yes no lymphadenopathy Thyroid: Thyroid normal Resp Effort & Inspection: normal respiratory effort and able to speak in complete sentences Auscultation: clear to auscultation bilaterally, no crackles, no rales, no rhonchi and no wheezes Cardio Rate: regular rate Rhythm: regular rhythm Heart sounds: S1 normal heart sound present, S2 normal heart sound present and no murmurs GI Palpation (GI): Soft to palpation, not firm, nontender, no guarding, not rigid and no hepatosplenomegaly Auscultation: normal bowel sounds General: No CVA tenderness Back/Spine/Pelvis Back: No CVA tenderness Thoracic/Lumbar Spine: straight leg raise negative bilaterally, paraspinal muscle tenderness (Right lumbar aspect), No thoracic spinal tenderness and No lumbar spinal tenderness Skin General skin exam: no rashes or lesions noted Neuro Other: Patient walks slightly bended forward General: patient oriented x3 Cranial nerves: Yes Equal, round and reactive pupils present Extrem General: Yes full ROM and No edema Results Reviewed Results Reviewed: Laboratory Tests 12/25/22 12/25/22 12/25/22 10:45 10:45 10:45 WBC 10.1 RBC 5.58 Hgb 17.7 Hct 53.6 H MCV 96.1 MCH 31.7 MCHC 33.0 RDW 12.4 Plt Count 307 MPV 10.3 Absolute Nucleated RBC 0.000 Nucleated RBC % (auto) 0.0 PT 11.7 INR 1.0 Sodium 136 Potassium 4.0 Chloride 101 Carbon Dioxide 22 Anion Gap 17 BUN 11 Creatinine 1.10 Estim Creat Clear Calc Not Reportable Estimated GFR > 60 Random Glucose 111 Calcium 10.1 TSH 1.65 Assessment and Plan Assessment & Plan (1) Preoperative clearance: Code(s): Z01.818 - Encounter for other preprocedural examination Plan: METs > 4; RCRI Class 1 cardiovascular risk 0.4% for an intermediate risk surgery (recent blood work 12/2022) Regarding preop clearance, the patient is at acceptable risk for proposed surgery. Reviewed with the patient that no surgery is completely free of risk and that this examination is to assist the surgeon in reviewing informed consent. Postop care including DVT prophylaxis per surgeon. Patient is cleared for surgery. 12/25/2022 EKG sinus tachycardia 103 BPM, no acute findings. EKG was reviewed by Dr. Leggett, results reviewed with the patient as well. (2) Right sided sciatica: Code(s): M54.31 - Sciatica, right side Plan: Surgery: Right L4-5 laminotomy partial facetectomy to decompress the right L5 nerve root and a right L5-S1 hemilaminotomy with removal of the synovial cyst to decompress the S1 nerve root per Dr. Chiang.? Patient reports right sciatica pain since 05/2022, he reports intermittent tingling in his right leg.? Tramadol prescribed by [facility] with no much improvement in right sciatica pain. Date: 12/30/22 Surgeon: Dr. Chiang Location: [place], [place] (3) Lumbar spinal stenosis: Code(s): M48.061 - Spinal stenosis, lumbar region without neurogenic claudication Plan: Same as above (4) Obese: Code(s): E66.9 - Obesity, unspecified Qualifiers: Body mass index: BMI 33.0-33.9 Obesity classification: adult class 1 (BMI 30 - 34.9) Obesity type: due to excess calories Serious obesity comorbidity presence: without serious comorbidity Qualified Code(s): E66.09 - Other obesity due to excess calories; Z68.33 - Body mass index [BMI] 33.0-33.9, adult Plan: BMI 31.2 Orders: Orders Basic Metabolic Panel Today Z01.818 - Encounter for other preprocedural examination TSH reflex Free T4 Today Z01.818 - Encounter for other preprocedural examination Prothrombin Time INR Today Z.818 - Encounter for other preprocedural examination Complete Blood Count no Diff Today Z.818 - Encounter for other preprocedural examination Coding Level of Care Code Est Pt Level 3 (05554) Diagnoses Preoperative clearance Z81 Right sided sciatica M54.31 Lumbar spinal stenosis M48.061 Obese E66.09; Z68.33 Body mass index: BMI 33.0-33.9 Obesity classification: adult class 1 (BMI 30 - 34.9) Obesity type: due to excess calories Serious obesity comorbidity presence: without serious comorbidity
[2022-12-25 10:12] VITALS: BP 126/88
== END 2022-12-25 10:17 | disposition home or self-care (01) ==
PROVIDERS: PCP Physician Assistant; Visit Provider Nurse Practitioner Family
DX: M54.31 Sciatica, right side (principal); M48.061 Spinal stenosis, lumbar region without neurogenic claudication; E66.09 Other obesity due to excess calories; Z68.33 Body mass index [BMI] 33.0-33.9, adult; Z01.818 Encounter for other preprocedural examination
CPT/HCPCS: 99213

== ENCOUNTER 2022-12-25 10:26 | Outpatient (REF) | payer MEDICARE, SELFPAY ==
[2022-12-25 11:46] LABS: Prothrombin Time 11.7 SEC (11.1-13.3)
[2022-12-25 11:50] LABS: Hematocrit 53.6 % (42.0-52.0); Hemoglobin 17.7 g/dl (14.0-18.0); Mean Corpuscular Hemoglobin 31.7 pg (27.0-33.0); Mean Corpuscular Volume 96.1 fL (80.0-98.0); Mean Platelet Volume 10.3 fL (9.4-12.4); Platelet Count 307 X10*3/uL (160-400); Red Blood Count 5.58 X10*6/uL (4.60-5.80); Red Cell Distribution Width 12.4 % (11.0-16.0); White Blood Count 10.1 X10*3/uL (4.8-10.8)
[2022-12-25 12:39] LABS: Anion Gap 17 (12-20); Blood Urea Nitrogen 11 mg/dL (9-16); Calcium 10.1 mg/dL (8.4-10.2); Carbon Dioxide 22 mmol/L (22-29); Chloride 101 mmol/L (96-108); Estimated Glomerular Filt Rate > 60; Glucose Random 111 mg/dL (60-115); Sodium 136 mmol/L (135-145)
[2022-12-25 12:44] LABS: TSH reflex Free T4 1.65 uIU/mL (0.32-4.0)
== END 2022-12-25 10:27 | disposition home or self-care (01) ==
LOC: HO.LAB 10:26
PROVIDERS: PCP Physician Assistant; Visit Provider Nurse Practitioner Family
DX: Z01.818 Encounter for other preprocedural examination (principal); J44.9 Chronic obstructive pulmonary disease, unspecified; D72.829 Elevated white blood cell count, unspecified; M48.061 Spinal stenosis, lumbar region without neurogenic claudication
CPT/HCPCS: 36415; 80048; 84443; 85027; 85610

== ENCOUNTER 2023-01-13 09:09 | Outpatient (AMB) | payer MEDICARE, SELFPAY ==
[2023-01-13 09:14] VITALS: BP 110/60; PULSE 94; RESP 17; O2SAT 98; BMI 31.1
--- NOTE | 2023-01-13 09:14 | MHC.PC.OV ---
Vital Signs 01/13/23 09:14 Height 6 ft Weight 229 lb 2 oz BMI 31.1 BP 110/60 Blood Pressure Location Lt brachial Position Sitting Respiration 17 Pulse 94 Pulse Source Pulse Oximeter Pulse Oximetry (%) 98 Oxygen Delivery Method Room Air Intake Visit Reasons: Follow Up Intake Note: Pt is here for weight concern and back pain. Pt will have surgery on 28 of January. [employer] Consultant Required: No Accompanied by: Self / Same As Patient Allergies No Known Allergies [No Known Allergies*] Allergy (Verified 01/13/23 09:22) Medication List - Last Reconciled 01/13/23 by Shiraz Salinas PA-C gabapentin 300 mg PO QHS Tobacco use date assessed: 12/25/22 Fall risk assessment: No Falls in past year Last assessed Fall Risk: 01/13/23 Dental Screening Dental Screen Date: 01/13/23 Did you have a dental visit in the last 12 months?: No Did you have a dental problem in the last 6 months where you did not have access to dental care?: No Was dental information given to patient?: Patient has dentist HPI Follow Up HPI Details Patient is a 67-year-old male here today for follow-up visit. Patient has a past medical history significant for tobacco dependency, obesity, borderline high total cholesterol, COPD and lumbar disc disease. Lumbar disc disease: Continues to have lower back pain with intermittent sharp pains down right lower extremity, has been sleeping on the couch many months now in a position of comfort. Now on gabapentin which she feels is somewhat helpful. Patient now seen neurosurgeon and is due for lumbar disc surgery here in [place] in January 2023. Patient's lumbar spine MRI done in July of 2022 showing [id number] spinal stenosis of L3-L4, mild spinal stenosis L4-L5, multilevel spondylosis. Also concerned about his weight loss. Has lost 20 lb over the last 5 months. Has not been as physically active and has not had an appetite due to his lower back pain. Due to his history of smoking did recommend lung cancer screening program patient agrees, also has had a colonoscopy 2016 that did show for polyps that were tubular adenoma. Unfortunately did get Cologuard which was negative though likely needs actual colonoscopy to confirm. [facility] Medical History Edentulous Tobacco dependence Lumbar spinal stenosis Back pain Arthritis Elevated cholesterol Blood clot due to device, implant, or graft COPD (chronic obstructive pulmonary disease) Cellulitis Surgical History H/O colonoscopy History of appendectomy Family History Other Substance use disorder Social History Housing: House Are you a primary home care coordinator to a significant other at home: No Do you presently have visiting nurse or other home services: No Alcohol intake: former Patient Tobacco Use Status: Current everyday Tobacco user Tobacco use type: Cigarette Cigarette Packs Per Day: 2 Cigarettes Per Day: 40.0 Years Smoked: 50 e-Cigarette/Vaping Use: Never Used Second Hand Smoke Exposure: Yes Advance Directives Date on File: 11/21/13 service: No Current occupational status: retired Cognitive needs: No Hearing needs: No Vision needs: Yes (reading glasses) Questionnaire Thrive Questionnaire Date Thrive assessed: 09/17/22 SUZETTE-7 AMB Questionnaire SUZETTE-7 Date SUZETTE - 7 assessed: 09/17/22 Source: Developed by Drs. Jossue Causey, Mariola Paulino, Kuldeep Crow and colleagues, with an educational kristen from [employer]. Review of Systems Const Denies headache(s) Eyes Denies loss of vision ENT Denies vertigo, Denies dizziness, Denies headache(s) and Denies sore throat Card Denies chest pain, Denies leg edema and Denies lightheadedness Resp Denies cough, Denies hemoptysis and Denies wheezing GI Denies abdominal pain, Denies melena, Denies constipation, Denies diarrhea and Denies vomiting Denies dysuria, Denies urinary frequency and Denies urinary urgency Musc Denies arthralgias, Denies joint swelling, Denies numbness and Denies tingling Neuro Denies Abnormal speech present, Denies behavioral changes, Denies vertigo, Denies dizziness, Denies headache(s), Denies loss of vision, Denies memory loss, Denies numbness and Denies tingling Psych Denies anxiety, Denies behavioral changes, Denies depression, Denies memory loss and Denies panic attacks Lit/Lymph Denies easy bleeding and Denies easy bruising Aller/Immun Denies wheezing Physical exam (Primary Care) Vital Signs: Last Vital Signs Pulse 94 01/13/23 09:14 Resp 17 01/13/23 09:14 BP 110/60 01/13/23 09:14 Pulse Ox 98 01/13/23 09:14 Oxygen Delivery Method Room Air 01/13/23 09:14 BMI result Body Mass Index 31.1 Tobacco/Smoking Status: Tobacco use Status Tobacco use date assessed 12/25/22 01/13/23 09:20 Patient Tobacco Use Status Current everyday Tobacco 01/13/23 09:20 Tobacco use type Cigarette 01/13/23 09:20 e-Cigarette/Vaping Use Never Used 01/13/23 09:20 Are you ready to quit: No Tobacco cessation counseling provided: Yes Relapse Prevention: discussed the importance of a supportive environment, discussed negative mood or depression after quitting, weight gain after smoking is common and discussed dietary, exercise and/or lifestyle changes Number of minutes spent counselin CPT code: 53062 - 4-10 Minutes Thrive Assessment: Date of Thrive Assessment Date Thrive assessed 09/17/22 01/13/23 09:20 Const Other: Weight loss noted General: healthy appearing, no acute distress, alert and awake Nutritional Appearance: well nourished Orientation/consciousness: oriented to person, oriented to place and oriented to time HENMT Ears: TM's normal bilaterally General nose exam: Normal nasal mucous membranes and turbinates present Eyes Conjunctivae: conjunctivae normal Sclerae: sclerae normal Pupils: Equal, round and reactive pupils present Neck Neck: Yes no lymphadenopathy and Yes no JVD Thyroid: Thyroid normal Carotids: no bruits Resp Effort & Inspection: normal respiratory effort and not tachypneic Auscultation: no crackles, no rales, no rhonchi and no wheezes Cardio Rate: regular rate Rhythm: regular rhythm Heart sounds: no murmurs and normal S1 and S2 GI Palpation (GI): Soft to palpation, nontender, no hepatomegaly and no splenomegaly Auscultation: normal bowel sounds Skin General skin exam: no rashes or lesions noted and dry skin Neuro General: oriented to person, oriented to place and oriented to time Cranial nerves: Yes Equal, round and reactive pupils present Speech: No Abnormal speech present Gait exam (Neuro): Normal gait present Motor exam (neuro): no tremor noted Extrem Right upper extremity: full ROM Left upper extremity: full ROM Right lower extremity: full ROM; no edema Left lower extremity: full ROM; no edema Psych Mental Status: mental status grossly normal Speech and movement: Normal speech and movement present Affect: normal affect Attitude: cooperative Thought process: Normal thought process present Assessment and Plan Assessment & Plan (1) Tobacco dependence: Code(s): F17.200 - Nicotine dependence, unspecified, uncomplicated Plan: Patient does understand he needs to quit smoking. Offered nicotine patches though he declines. Has some interest in restarting Chantix to help quit smoking thus will send in script. (2) Lumbar spinal stenosis: Code(s): M48.061 - Spinal stenosis, lumbar region without neurogenic claudication Qualifiers: Neurogenic claudication status: with neurogenic claudication Qualified Code(s): M48.062 - Spinal stenosis, lumbar region with neurogenic claudication Plan: He is due for lumbar spine surgery in January 2023. Recent labs have been stable, has no cardiac history. (3) COPD (chronic obstructive pulmonary disease): Comment: no inhalers or O2 use Code(s): J44.9 - Chronic obstructive pulmonary disease, unspecified Qualifiers: COPD type: emphysema Emphysema type: centrilobular Qualified Code(s): J43.2 - Centrilobular emphysema (4) Weight loss: Code(s): R63.4 - Abnormal weight loss Plan: Noted some significant weight loss over the last 5 months. Could be secondary to being more inactive and lower appetite due to all is lower back pain. Advised on lung cancer screening and repeat colonoscopy due to having history tubular adenoma. (5) Tubular adenoma of colon: Comment: multiple , 4 0n 2016 procedure Code(s): D12.6 - Benign neoplasm of colon, unspecified (6) BPH associated with nocturia: Code(s): N40.1 - Benign prostatic hyperplasia with lower urinary tract symptoms; R35.1 - Nocturia Plan: Does report some nocturia, most recent PSA normal. Will start Flomax to help completely empty bladder. Orders: Orders US abdomen complete Today R63.4 - Abnormal weight loss Lipase Today R63.4 - Abnormal weight loss Complete Blood Count no Diff Today R63.4 - Abnormal weight loss XR chest 2V Today F17.200 - Nicotine dependence, unspecified, uncomplicated Referrals Thoracic Surgery Referral F17.200 - Nicotine dependence, unspecified, uncomplicated Gastroenterology Referral D12.6 - Benign neoplasm of colon, unspecified, R63.4 - Abnormal weight loss Medications: New tamsulosin 0.4 mg PO DAILY 90 caps 1RF N40.1 - Benign prostatic hyperplasia with lower urinary tract symptoms, R35.1 - Nocturia varenicline 0.5 mg PO; Take 0.5 mg qd x 3 days, then 0.5 mg b.i.d. x4 days 7 days 11 tabs 0RF F17.200 - Nicotine dependence, unspecified, uncomplicated varenicline 1 mg PO BID 28 days 56 tabs 3RF F17.200 - Nicotine dependence, unspecified, uncomplicated Coding Level of Care Code Est Pt Level 4 (47198) Diagnoses Tobacco dependence F17.200 Spinal stenosis of lumbar region with neurogenic claudication M48.062 Neurogenic claudication status: with neurogenic claudication Centrilobular emphysema J43.2 COPD type: emphysema Emphysema type: centrilobular Weight loss R63.4 Tubular adenoma of colon D12.6 BPH associated with nocturia N40.1; R35.1 Additional Codes Vital Signs *Quality* - CPT code: 25939 - 4-10 Minutes ([id number])
== END 2023-01-13 10:28 | disposition home or self-care (01) ==
PROVIDERS: PCP Physician Assistant; Visit Provider Physician Assistant
DX: J43.2 Centrilobular emphysema (principal); F17.200 Nicotine dependence, unspecified, uncomplicated; M48.062 Spinal stenosis, lumbar region with neurogenic claudication; R63.4 Abnormal weight loss; D12.6 Benign neoplasm of colon, unspecified; N40.1 Benign prostatic hyperplasia with lower urinary tract symptoms; R35.1 Nocturia
CPT/HCPCS: 99214

== ENCOUNTER 2023-01-15 14:03 | Outpatient (REF) | payer MEDICARE, SELFPAY ==
--- NOTE | ~2023-01-15 | XR_ITS ---
EXAMINATION: XR CHEST CLINICAL INFORMATION: Incomplete dependence COMPARISON: None available. TECHNIQUE: 2 views of the chest were obtained. FINDINGS: Coarsened interstitial lung markings. Slight blunting of the bilateral costophrenic recesses which may represent trace pleural effusions versus scarring. Bibasilar atelectasis. No pneumothorax. Trachea is midline. Cardiac mediastinal silhouette is not enlarged. Osseous structures are intact. Soft tissues are unremarkable. XR/XR chest 2V IMPRESSION: 1. Coarsened interstitial lung markings. 2. Slight blunting of the bilateral costophrenic recesses which may represent trace pleural effusions versus scarring. 3. Bibasilar atelectasis.
[2023-01-15 14:34] LABS: Hematocrit 48.3 % (42.0-52.0); Hemoglobin 16.2 g/dl (14.0-18.0); Mean Corpuscular HGB Conc 33.5 g/dl (31.0-36.0); Mean Corpuscular Hemoglobin 32.5 pg (27.0-33.0); Mean Corpuscular Volume 96.8 fL (80.0-98.0); Mean Platelet Volume 9.2 fL (9.4-12.4); Platelet Count 362 X10*3/uL (160-400); Red Blood Count 4.99 X10*6/uL (4.60-5.80); Red Cell Distribution Width 12.7 % (11.0-16.0)
[2023-01-15 14:43] LABS: Anion Gap 14 (12-20); Blood Urea Nitrogen 12 mg/dL (9-16); Calcium 9.5 mg/dL (8.4-10.2); Carbon Dioxide 25 mmol/L (22-29); Chloride 108 mmol/L (96-108); Estimated Glomerular Filt Rate > 60; Glucose Random 93 mg/dL (60-115); Lipase 22 U/L (8-78); Potassium 3.8 mmol/L (3.3-5.1); Sodium 143 mmol/L (135-145)
== END 2023-01-15 14:04 | disposition home or self-care (01) ==
LOC: HO.XRAY 14:03
PROVIDERS: PCP Physician Assistant; Visit Provider Physician Assistant
DX: R63.4 Abnormal weight loss (principal); F17.200 Nicotine dependence, unspecified, uncomplicated
CPT/HCPCS: 36415; 71046; 80048; 83690; 85027

== ENCOUNTER 2023-01-22 14:17 | Outpatient (REF) | payer MEDICARE, SELFPAY ==
[2023-01-22 15:30] LABS: Hematocrit 47.8 % (42.0-52.0); Hemoglobin 15.9 g/dl (14.0-18.0); Mean Corpuscular HGB Conc 33.3 g/dl (31.0-36.0); Mean Corpuscular Hemoglobin 32.5 pg (27.0-33.0); Mean Corpuscular Volume 97.8 fL (80.0-98.0); Mean Platelet Volume 9.6 fL (9.4-12.4); Platelet Count 385 X10*3/uL (160-400); Red Blood Count 4.89 X10*6/uL (4.60-5.80); Red Cell Distribution Width 12.9 % (11.0-16.0); White Blood Count 11.9 X10*3/uL (4.8-10.8)
== END 2023-01-22 14:18 | disposition home or self-care (01) ==
LOC: HO.LAB 14:17
PROVIDERS: PCP Physician Assistant; Visit Provider Physician Assistant
DX: D72.829 Elevated white blood cell count, unspecified (principal)
CPT/HCPCS: 36415; 85027

== ENCOUNTER 2023-01-26 14:48 | Outpatient (REF) | payer MEDICARE, SELFPAY | END 2023-01-26 14:49 | disposition home or self-care (01) | LOC: HO.XRAY 14:48 | PROVIDERS: PCP Physician Assistant; Visit Provider Physician Assistant | DX: R05.9 Cough, unspecified (principal) | CPT/HCPCS: 71046 ==

== ENCOUNTER 2023-01-28 09:47 | Day surgery (SDC) | payer MEDICARE, SELFPAY ==
[2022-12-25 09:42] VITALS: BMI 31.9
[2023-01-28] VITALS (11 sets, daily range): BP systolic 108–159; BP diastolic 72–90; PULSE 87–100; RESP 14–20; TEMP 36.2–36.9; O2SAT 95–98
--- NOTE | ~2023-01-28 | FL_ITS ---
EXAMINATION: XR FLUOROSCOPY WITH IMAGES CLINICAL INFORMATION: L4-L5 and L5-S1 right decompression. COMPARISON: Lumbar spine radiographs dated 06/11/2012. TECHNIQUE: Fluoroscopy Supervised By: Dr. Chiang. Fluoroscopy Time: 0.0. Cumulative Dose: 5.01 mGy. DAP: 1.36 Gycm2. Images: 1. FINDINGS: The single submitted image shows a retractor and probe directed at the L5-S1 level. FL/FL guidance in OR IMPRESSION: Intraoperative fluoroscopic guidance is provided during lumbar decompression surgery. Please see the patient's Operative Report for full procedural details.
--- NOTE | 2023-01-28 07:00 | MHC.SHP ---
Pre-Procedural Eval Section A Date of Service: 01/28/23 Section B Chief Complaint: bursal cyst,Spinal stenosis,Sciatica, Allergies: Allergies Allergy/AdvReac Type Severity Reaction Status Date / Time No Known Allergies Allergy Verified 01/13/23 09:22 [No Known Allergies*] Review of Systems Sugical H&P ROS: Negative: Constitution, Cardiovascular, Respiratory, Neurological, Psychiatric, Hem-Onc, Allergic/Immunologic, Gastrointestinal, Genitourinary, Musculoskeletal, Integumentary, Endocrine and Eyes/Ears/Nose/Throat Exam Surgical H&P Exam: Not Evaluated: HEENT, Not Evaluated: Heart, Not Evaluated: Lungs, Not Evaluated: Extremities, Not Evaluated: Abdomen, Not Evaluated: Skin and Not Evaluated: Neurological Plan Diagnosis/Plan: Unchanged I have reviewed the history and physical and performed a pertinent physical examination on my patient. No changes have occurred unless specified. Plan remains the same, L4-5, L5-S1 laminectomy and extradural mass removal Time Spent With Patient Time: Total time managing care of this patient today __10__ minutes.
--- NOTE | 2023-01-28 13:22 | HO.ANESPROP2 ---
HPI - Anesthesia Eval Consult details Narrative: for lumbar decompression PMFSH Active Problems Active Problems: All Active Problems (Updated 01/19/23 @ 15:18 by Shiraz Salinas PA-C) Cough (Acute) Leukocytosis (Acute) BPH associated with nocturia (Acute) Weight loss (Acute) Preoperative clearance (Acute) Tubular adenoma of colon (Acute) Right sided sciatica (Acute) Screening for diabetes mellitus (DM) (Acute) Obese (Acute) Tobacco dependence (Acute) Colon cancer screening (Acute) Annual physical exam (Acute) Borderline high cholesterol (Acute) Elevated fasting blood sugar (Acute) Synovial cyst of lumbar facet joint (Acute) Lumbar spinal stenosis (Acute) COPD (chronic obstructive pulmonary disease) (Acute) Cellulitis (Acute) Blood clot due to device, implant, or graft (Acute) Past Medical History Medical History Edentulous Tobacco dependence Lumbar spinal stenosis Back pain Arthritis Elevated cholesterol Blood clot due to device, implant, or graft COPD (chronic obstructive pulmonary disease) Cellulitis Family History Family History Other Substance use disorder Family history of problems with anesthesia: No Surgical History Surgical History H/O colonoscopy History of appendectomy History of Problems with Anesthesia: No Social History Social History Housing: House Are you a primary animal care giver to a significant other at home: No Do you presently have visiting nurse or other home services: No Alcohol intake: former Patient Tobacco Use Status: Current everyday Tobacco user Tobacco use type: Cigarette Cigarette Packs Per Day: 2 Cigarettes Per Day: 40.0 Years Smoked: 50 e-Cigarette/Vaping Use: Never Used Second Hand Smoke Exposure: Yes Use of substances other than those prescribed or required for medical reasons: No Have you been hit, kicked, punched, or otherwise hurt by someone within the past year? If so, by whom?: No Are you DNR?: No Advance Directives: Yes Advance Directives Information Provided: Yes Advance Directives on File: Yes Advance Directives Date on File: 11/21/13 Recently lost weight without trying: No Eating poorly because of decreased appetite: No Nutrition Risks: No Nutritional Risk Poor oral hygiene: Yes (edentulous upper/only 7-8 teeth lower-no dentures) service: No Current occupational status: retired Cognitive needs: No Hearing needs: No Vision needs: Yes (reading glasses) Meds Allergies Allergy/AdvReac Type Severity Reaction Status Date / Time No Known Allergies Allergy Verified 01/13/23 09:22 [No Known Allergies*] Active Medications: Current Medications Lactated Ringer's (Lr) 1,000 mls @ 80 mls/hr IVCONT .[id number] MARY Last Admin: 01/28/23 10:40 Dose: 80 mls/hr Home Medications Medication Instructions Recorded Confirmed Last Taken Type gabapentin 300 mg capsule 300 mg PO QHS 01/13/23 01/13/23 Unknown History Exam Exam Date and Time: January 28, 2023 1322 Height,Weight and Vital Signs: Height 6 ft Weight 106.594 kg Last Vital Signs Temp 98.5 F 01/28/23 10:29 Pulse 100 01/28/23 10:29 Resp 16 01/28/23 10:29 BP 124/86 01/28/23 10:29 Pulse Ox 96 01/28/23 10:29 O2 Del Method Room Air 01/28/23 10:29 Pertinent Lab Results Pertinent Lab Results: Laboratory Tests 01/28/23 10:13 Blood Type O Positive Antibody Screen NEGATIVE Airway Mallampati Class: III TM Dist: >3cm Neck ROM: Limited Heart: rrr Lungs: cta Assessment and Plan Assessment Anesthesia Assessment: Anesthesia Plan Discussed, Smoking Cess. Discussed and Chart Reviewed Final Anesthetic Review Family History of Problems with Anesthesia: No History of Problems with Anesthesia: No NPO: Yes ASA Class: III Final Preanesthetic Review: No Changes in Pt Med Stat, Meds/Allgs Chart Reviewed, Consent Obtained/Reviewed and Anes Risks/Benef Reviewed (albuterol updraft and [id number] i.v preop) Patient Risk: Intermediate Procedure Risk: Intermediate Anesthetic Plan Anesthetic Plan: GA and Agree w/ Assess. and Plan Disposition: Standard PACU
--- NOTE | 2023-01-28 14:22 | W.PM.OPN ---
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 I have explained the nature, purpose and benefits of the operation. I have discussed the risks and benefit of the operation including possible complications or adverse events with patient/family. Alternative(s) were discussed with the patient with their relative benefits and risks as well as the consequences of not accepting the operation were included in obtaining consent. Surgeon: CATHY FRANCIS MD, PHD Procedure Assisted By: Sunny Bang Description of Procedure this 67-year-old male suffer from severe lumbar radiculopathy L5 and S1 caused by a mass originating from the L4-5 L5-S1 joint, most likely representing a synovial cysts. The patient was offered removal of the L4-5 and L5-S1 cysts. The procedure complications were explained. The patient was consented. The patient was brought to the operating room and endotracheally intubated. The patient was turned in prone position on the Jayy frame. Prep and drape was done followed by timeout. The Physician freezer assistant provided access. A mid lumbar incision was made followed by release of the paravertebral muscle on the right side to expose the L4-5 and L5-S1 interspaces. An intraoperative x-ray was obtained to confirm the correct level. The microscope was brought in. I took over the procedure. The high-speed drill was used to do a L4-5aminotomy until flavum ligament was reached. flavum ligament was opened and partially resected to expose the underlying thecal sac. The thecal sac was deviated medially by a subdural mass that was attached to the L5 nerve root. The mass was carefully dissected from the nerve root and resected piecemeal. This led to good decompression of the L5 nerve root. Then attention was turned to the L5-S1 region. An L5 laminotomy was done and the flavum ligament was opened. A large mass was encountered that was encasing the S1 nerve root and the thecal sac on the right side. I extended the laminotomy until the end of the mass was reached cranially and resected the pars the S1 lamina to reach since the end of the mass caudally. Carefully I created a plane between the dura and the extradural mass followed by resection. The S1 nerve root was deviated medially from the mass effect. I used a 2. Kerrison to go perpendicular to the nerve root and removed more cystic material to decompress the S1 nerve root. In the end good decompression was obtained with adequate pulsations of the thecal sac and nerve root. The microscope was removed. Hemostasis was done. The physician freezer assistant close the Incision in 2 layers. Steri-Strips were used to approximate incision. An OpSite with Tegaderm was used to cover the incision. All sponge needle counts were correct. Patient was extubated and transported in stable is to recovery room. Anesthesia: General Estimated Blood Loss (ml): 20 mL Complications: None Duration of Surgery: Under 120 Minutes Postoperative Plan: Discharge to home
--- NOTE | 2023-01-28 14:40 | PM.DS ---
DS: Providers Provider Date of Service: 01/28/23 Primary care physician: Shiraz Salinas PA-C DS: Summary Time Spent with Patient Time attestation: Total time managing care of this patient today ____ minutes. Discharge coordination time: Less than 30 minutes Quality: Safe Use of Opioids Does Pt have an Active Cancer Diagnosis on the Problem List?: No Quality: Stroke Does the patient have a stroke diagnosis?: No Physical Exam Vital Signs: Vital Signs: Last Vital Signs Temp 98.5 F 01/28/23 10:29 Pulse 100 01/28/23 10:29 Resp 16 01/28/23 10:29 BP 124/86 01/28/23 10:29 Pulse Ox 96 01/28/23 10:29 O2 Del Method Room Air 01/28/23 10:29 BMI result Body Mass Index 31.9 DS: Data Data Completed and Pending Labs on day of discharge: Laboratory Results - last 24 hr 01/28/23 10:13 Blood Type O Positive Antibody Screen NEGATIVE Discharge Plan Discharge Patient Disposition: Home, Self-Care Referrals: Shiraz Salinas PA-C [Primary Care Provider] - 1 Week Discharge Medications: New oxycodone 5 mg tablet 5 mg PO Q6H PRN (Reason: severe pain (scale score 7-10)) Qty: 20 0RF Rx Instructions: Partial Fill upon patient request. docusate sodium 100 mg capsule 100 mg PO BID Qty: 20 0RF Continued furosemide [Lasix] 20 mg tablet 20 mg PO DAILY 7 Days Qty: 7 0RF gabapentin 300 mg capsule 300 mg PO QHS tamsulosin 0.4 mg capsule 0.4 mg PO DAILY Qty: 90 1RF varenicline 0.5 mg tablet 0.5 mg PO .COMPLEX 7 Days Qty: 11 0RF Rx Instructions: 0.5 mg PO; Take 0.5 mg qd x 3 days, then 0.5 mg b.i.d. x4 days varenicline 1 mg tablet 1 mg PO BID 28 Days Qty: 56 3RF Discharge Orders: Discharge Order (Routine); Ordered 01/28/23 Ordered By: Eron Castillo Diet: Advance to usual diet Activity on Discharge: As tolerated Activity Restrictions/Additional Instructions: After your spinal surgery we ask you to observe the following restrictions/guidelines: Activity: It is normal to feel some discomfort as you increase your activity, but that will improve with time. We ask you avoid heavy lifting or acitivities that cause pain. As a general rule, 8lbs is a safe limit for lifting right after surgery. Walk as much as you feel comfortable but not to exhaustion. You will feel extra tired the first few days after surgery. Stay well hydrated. It is OK to walk up and down stairs You may return to driving when you are off narcotics (such as vicodin, oxycodone, dilaudid, etc), and you are back to normal functional capacity. If you have any concerns please check with office before driving. Return to work is specific to each patient and each surgery, so please speak with your doctor/PA at first follow up. Please bring paperwork such as FMLA at that time if you need it filled out. Medications: We will give you a short supply of narcotics after surgery (usually one weeks worth). If you need more please call the office but do not use more than prescribed. You will need to give our office 48 hours notice if you need narcotics refilled and we do not fill narcotics on weekends or evenings. If you are on a narcotic, it is a good idea to take a stool softener such as colace or senna to avoid constipation If you take blood thinner such as aspirin, Plavix, Coumadin, Effient, Eliquis etc for conditions such as Afib, DVT, Pulmonary embolus, coronary disease, stents etc please speak with your surgeon about specific details as to when you can resume these medications. You can resume NSAIDs on post op day 1 (eg: Motrin, Naproxen, etc). Follow up: Please call the office, , after surgery to arrange a 3 week follow up for wound check. Wound Care: You may remove your dressing on the first day after surgery. You may leave open to air. Please do not remove the steri strips underneath. they will fall off on their own in one week. IT IS NORMAL FOR THE WOUND TO OOZE OR BE BLOODY FOR A FEW DAYS AFTER SURGERY. IF THIS HAPPENS JUST PLACE NEW DRESSING OVER IT TO AVOID STAINING CLOTHES. You may shower on post op day # 1 We ask that you do not let the water soak the wound. If it does get wet, just towel dry lightly. Please do not scrub your incision or place any type of chemical/ointment on the wound. No tub baths, pools or jacuzzis for one month. If you have any leaking or redness from your wound, or fevers, please call the office.
--- NOTE | 2023-01-28 14:40 | PM.DS ---
DS: Providers Provider Date of Service: 01/28/23 Date of discharge: 01/28/23 Primary care physician: Shiraz Salinas PA-C Attending physician on discharge: Darwin Chiang DS: Summary Time Spent with Patient Time attestation: Total time managing care of this patient today ____ minutes. Discharge coordination time: Less than 30 minutes Quality: Safe Use of Opioids Does Pt have an Active Cancer Diagnosis on the Problem List?: No Quality: Stroke Does the patient have a stroke diagnosis?: No Physical Exam Vital Signs: Vital Signs: Last Vital Signs Temp 98.5 F 01/28/23 10:29 Pulse 100 01/28/23 10:29 Resp 16 01/28/23 10:29 BP 124/86 01/28/23 10:29 Pulse Ox 96 01/28/23 10:29 O2 Del Method Room Air 01/28/23 10:29 BMI result Body Mass Index 31.9 DS: Data Data Completed and Pending Labs on day of discharge: Laboratory Results - last 24 hr 01/28/23 10:13 Blood Type O Positive Antibody Screen NEGATIVE Discharge Plan Discharge Patient Disposition: Home, Self-Care Referrals: Shiraz Salinas PA-C [Primary Care Provider] - 1 Week Discharge Medications: No Action varenicline 1 mg tablet 1 mg PO BID 28 Days Qty: 56 6RF meloxicam 15 mg tablet 15 mg PO DAILY 30 Days Qty: 30 2RF Discharge Orders: Discharge Order (Routine); Ordered 01/28/23 Ordered By: Eron Castillo Diet: Advance to usual diet Activity on Discharge: As tolerated Activity Restrictions/Additional Instructions: After your spinal surgery we ask you to observe the following restrictions/guidelines: Activity: It is normal to feel some discomfort as you increase your activity, but that will improve with time. We ask you avoid heavy lifting or acitivities that cause pain. As a general rule, 8lbs is a safe limit for lifting right after surgery. Walk as much as you feel comfortable but not to exhaustion. You will feel extra tired the first few days after surgery. Stay well hydrated. It is OK to walk up and down stairs You may return to driving when you are off narcotics (such as vicodin, oxycodone, dilaudid, etc), and you are back to normal functional capacity. If you have any concerns please check with office before driving. Return to work is specific to each patient and each surgery, so please speak with your doctor/PA at first follow up. Please bring paperwork such as FMLA at that time if you need it filled out. Medications: We will give you a short supply of narcotics after surgery (usually one weeks worth). If you need more please call the office but do not use more than prescribed. You will need to give our office 48 hours notice if you need narcotics refilled and we do not fill narcotics on weekends or evenings. If you are on a narcotic, it is a good idea to take a stool softener such as colace or senna to avoid constipation If you take blood thinner such as aspirin, Plavix, Coumadin, Effient, Eliquis etc for conditions such as Afib, DVT, Pulmonary embolus, coronary disease, stents etc please speak with your surgeon about specific details as to when you can resume these medications. You can resume NSAIDs on post op day 1 (eg: Motrin, Naproxen, etc). Follow up: Please call the office, , after surgery to arrange a 3 week follow up for wound check. Wound Care: You may remove your dressing on the first day after surgery. You may leave open to air. Please do not remove the steri strips underneath. they will fall off on their own in one week. IT IS NORMAL FOR THE WOUND TO OOZE OR BE BLOODY FOR A FEW DAYS AFTER SURGERY. IF THIS HAPPENS JUST PLACE NEW DRESSING OVER IT TO AVOID STAINING CLOTHES. You may shower on post op day # 1 We ask that you do not let the water soak the wound. If it does get wet, just towel dry lightly. Please do not scrub your incision or place any type of chemical/ointment on the wound. No tub baths, pools or jacuzzis for one month. If you have any leaking or redness from your wound, or fevers, please call the office. Discharge Date/Time: 01/28/23 16:59
--- NOTE | 2023-01-28 16:54 | PM.EVENT ---
Event Note Date of Service: 01/28/23 Event Note: 16:20 Called to see patient by PACU nurse who happened to look up at monitoring manager and noticed run of Vtach. Strip captured 7 beat run of non-sustained monomorphic Vtach. Patient was asymptomatic. VSS. Patient does not have any documented history of cardiac disease-CAD, myopathy but is a 2ppd for 50 years smoker and h/o DVT. Discussed this finding with patient. Patient advised to follow up with PCP for possible further evaluation and monitoring. Patient seems to understand and agrees with plan. Questions answered. Patient discharged in stable condition. Time Spent With Patient Time: Total time managing care of this patient today ____ minutes.
== END 2023-01-28 16:59 | disposition home or self-care (01) ==
PROVIDERS: PCP Physician Assistant; Visit Provider Neurological Surgery
PROC: (CPT 63267; principal; 2023-01-28 11:20)
DX: M48.061 Spinal stenosis, lumbar region without neurogenic claudication (principal); M71.38 Other bursal cyst, other site; M54.31 Sciatica, right side; I47.29 Other ventricular tachycardia; F17.210 Nicotine dependence, cigarettes, uncomplicated
CPT/HCPCS: 63267; 63047; 86850; 86900; 86901; 99499; J0131; J0690; J1100; J1170; J1885; J2371; J2405; J3010

== ENCOUNTER → 2023-01-28 09:47 | Outpatient (BNV) | payer MEDICARE, SELFPAY | PROVIDERS: PCP Physician Assistant; Visit Provider Neurological Surgery | DX: M48.061 Spinal stenosis, lumbar region without neurogenic claudication (principal); M71.38 Other bursal cyst, other site; M54.16 Radiculopathy, lumbar region | CPT/HCPCS: 63267; 69990; 99499 ==

== ENCOUNTER 2023-02-04 07:53 | Outpatient (REF) | payer MEDICARE, SELFPAY ==
--- NOTE | ~2023-02-04 | US_ITS ---
EXAMINATION: US ABDOMEN COMPLETE CLINICAL INFORMATION: Abnormal weight loss. COMPARISON: None available. TECHNIQUE: Real-time imaging of the abdominal viscera. FINDINGS: PANCREAS: Normal. ABDOMINAL AORTA: The proximal, mid, and distal segments are normal in caliber. INFERIOR VENA CAVA: Visualized portions are normal. LIVER: Liver echotexture is increased. There are multiple liver cysts, largest in the right lobe measuring 7 x 8 cm. There is no intrahepatic biliary duct dilatation seen. GALLBLADDER: Normal. The gallbladder is physiologically distended without evidence of stones, sludge, polyps, wall thickening or pericholecystic fluid. COMMON BILE DUCT: Normal in caliber measuring 0.6 cm in diameter. RIGHT KIDNEY: Normal. No hydronephrosis. No renal calculi or focal parenchymal lesions. The kidney measures 12.2 cm in maximum dimension. LEFT KIDNEY: Normal. No hydronephrosis. No renal calculi or focal parenchymal lesions. The kidney measures 10.8 cm in maximum dimension. SPLEEN: Normal. The spleen measures 7.4 cm in maximum dimension. FREE FLUID: None. US/US abdomen complete IMPRESSION: Echogenic liver probably representing fatty infiltration. Multiple liver cysts.
== END 2023-02-04 07:54 | disposition home or self-care (01) ==
LOC: HO.US 07:53
PROVIDERS: PCP Physician Assistant; Visit Provider Physician Assistant
DX: R63.4 Abnormal weight loss (principal)
CPT/HCPCS: 76700

== ENCOUNTER 2023-02-09 09:25 | Outpatient (AMB) | payer MEDICARE, SELFPAY ==
--- NOTE | 2023-02-09 09:35 | MHC.OFFVIS ---
Intake Vital Signs 02/09/23 09:36 Height 6 ft Weight 233 lb 3.985 oz BMI 31.6 BP 134/76 Blood Pressure Location Lt brachial Position Sitting Pulse 87 Intake Visit Reasons: Colonoscopy Screening/Weight loss Intake Note: Patient returns to in office visit today for weight loss and colonoscopy screening. CC: Patient reports he was in bed for about 8 months s/p back surgery and he was losing about 5 pounds a week. He reports his weight loss has resolved now. Last colonoscopy on 2016. Denies having any GI symptoms today. Barrel Stave Inspector Required: No Accompanied by: Self / Same As Patient Allergies No Known Allergies [No Known Allergies*] Allergy (Verified 01/13/23 09:22) HPI Colonoscopy Screening/Weight loss HPI Details Assessment & Plan (1) Tubular adenoma of colon: Comment: multiple , 4 0n 2017 procedure Code(s): D12.6 - Benign neoplasm of colon, unspecified Category: Medical Plan - DESHAUN OjedaC: He had TA's on his last scope. He denies any current problems with his bowels or upper GI problems. There are no prior problems with anesthesia or sedation He does not have any heart problems, he is smoker and was recently diagnosed with COPD which currently is not treated. There are no infectious disease problems There is no known family history of colorectal cancer or polyps. Medications: New: bisacodyl (Dulcola x (bisacodyl)) 10 mg (2 x 5 mg) P O BEDTIME 2 days 4 tabs 0RF polyethylene glyco l 3350 (Miralax) 238 grams PO ONCE 1 day 238 grams 0 RF COLONOSCOPY BIOPSY Laboratory Tests 09/14/22 12/25/22 01/15/23 10:43 10:45 14:15 WBC Hgb Hct Estimated GFR > 60 Total Bilirubin 0.6 AST 24 ALT 32 Alkaline Phosphata se 102 TSH 1.65 01/22/23 01/22/23 14:32 14:32 WBC 11.9 H Hgb 15.9 Hct 47.8 Estimated GFR Total Bilirubin AST ALT Alkaline Phosphata se TSH TODAY'S VISIT The patient was last seen 06/2020 and then apparently was lost to follow-up. He says he was working many hours then but now he is retired. He just had back surgery for 2 cysts on my back. This went well for him. He is taking Chantix and his smoking has been cut in half. He was losing weight, but he was in bed r/t his back problems. He could not get up and get anything to eat w/o severe pain. He went from 254 to 229. He is now gaining wt again. He is trying to get his energy back after severe deconditioning. He had TA's on his last scope. He denies any current problems with his bowels or upper GI problems. There are no prior problems with anesthesia or sedation He does not have any heart problems, he is smoker and was recently diagnosed with COPD which currently is not treated. There are no infectious disease problems There is no known family history of colorectal cancer or polyps. [facility] Medical History Edentulous Tobacco dependence Lumbar spinal stenosis Back pain Arthritis Elevated cholesterol Blood clot due to device, implant, or graft COPD (chronic obstructive pulmonary disease) Cellulitis Surgical History H/O colonoscopy History of appendectomy Family History Other Substance use disorder Social History Housing: House Are you a primary personal care home administrator to a significant other at home: No Do you presently have visiting nurse or other home services: No Alcohol intake: former Patient Tobacco Use Status: Current everyday Tobacco user Tobacco use type: Cigarette Cigarette Packs Per Day: 2 Cigarettes Per Day: 40.0 Years Smoked: 50 e-Cigarette/Vaping Use: Never Used Second Hand Smoke Exposure: Yes Advance Directives Date on File: 11/21/13 service: No Current occupational status: retired Cognitive needs: No Hearing needs: No Vision needs: Yes (reading glasses) Review of Systems Const Denies fatigue, Denies fever(s), Denies night sweats, Denies poor appetite and Reports weight loss ENT Reports Normal hearing present, Denies dysphagia, Denies odynophagia, Denies throat swelling and Denies tongue swelling Card Reports no additional complaints Resp Reports no additional complaints GI Denies abdominal pain, Denies melena, Denies bloating, Denies hematochezia, Denies constipation, Denies GI cramping, Denies dysphagia, Denies excessive flatus, Denies early satiety, Denies heartburn, Denies diarrhea, Denies nausea, Denies odynophagia, Denies vomiting and Denies hematemesis Musc Reports back pain and Reports radiating pain into limb Skin/Breast Denies pruritus, Denies lesions, Denies rash and Denies jaundice Neuro Reports Normal hearing present, Denies Abnormal speech present and Reports paresthesias Endo Denies fatigue Aller/Immun Denies throat swelling and Denies tongue swelling Physical Exam Vital Signs: Last Vital Signs Pulse 87 02/09/23 09:36 BP 134/76 02/09/23 09:36 BMI result Body Mass Index 31.6 Const Other: strong smell of cigarettes General: cooperative, no acute distress, well developed and well groomed Nutritional Appearance: well nourished and obese Orientation/consciousness: oriented to person, oriented to place and oriented to time Limitations: No language barrier HEENT Head: Yes normocephalic and Yes atraumatic Eyes General: appearance normal, both eyes and all related structures Pupils: Equal, round and reactive pupils present Neck Neck: Yes normal visual inspection and Yes no lymphadenopathy Thyroid: Thyroid normal Resp Effort & Inspection: normal respiratory effort and able to speak in complete sentences Auscultation: clear to auscultation bilaterally Cardio Rate: regular rate Rhythm: regular rhythm Heart sounds: Normal, physiologic split S2 sound present Peripheral pulses: radial pulses present and posterior tibial pulses present GI Inspection: No distended, No Abdominal panniculus present and Yes obesity Palpation (GI): Soft to palpation, nontender, no guarding, not rigid and No hepatosplenomegaly present Percussion: Yes normal to percussion Auscultation: normal bowel sounds Rectal Exam - Male: Yes deferred Abdomen image: 1. old surgical scar Skin General skin exam: no rashes or lesions noted, turgor normal, skin not dry, no jaundice, No spider nevi and no striae Rashes: no rashes Nails: normal Neuro General: oriented to person, oriented to place and oriented to time Cranial nerves: Yes Equal, round and reactive pupils present and Yes Normal hearing present Speech: No Abnormal speech present Extrem General: Yes normal to inspection, No clubbing, No cyanosis and No edema Psych Appearance: grossly normal and disheveled Mental Status: mental status grossly normal Speech and movement: Normal speech and movement present Affect: normal affect Attitude: cooperative Thought process: Normal thought process present and not confabulating Thought content: Normal thought content present Insight: Limited insight present (Psych) Judgement: Limited judgement present (Psych) Assessment & Plan Assessment & Plan (1) Tubular adenoma of colon: Comment: multiple , 4 0n 2017 procedure Code(s): D12.6 - Benign neoplasm of colon, unspecified Plan: The patient was last seen 06/2020 and then apparently was lost to follow-up. He says he was working many hours then but now he is retired. He just had back surgery for 2 cysts on my back. This went well for him. He is taking Chantix and his smoking has been cut in half. He was losing weight, but he was in bed r/t his back problems. He could not get up and get anything to eat w/o severe pain. He went from 254 to 229. He is now gaining wt again. He is trying to get his energy back after severe deconditioning. He had TA's on his last scope. He denies any current problems with his bowels or upper GI problems. There are no prior problems with anesthesia or sedation He does not have any heart problems, he is smoker and was recently diagnosed with COPD which currently is not treated. There are no infectious disease problems There is no known family history of colorectal cancer or polyps. (2) Pre-op examination: Code(s): Z01.818 - Encounter for other preprocedural examination Orders: Orders Colonoscopy - GI Use Only Today D12.6 - Benign neoplasm of colon, unspecified Medications: New peg 3350-electrolytes 236-22.74-6.74 -5.86 gram (Golytely) until fecal effluent is clear; do not exceed a total volume of 2,000 mL 240 mL PO Q10M 1 day 4,000 mL 0RF Z12.11 - Encounter for screening for malignant neoplasm of colon Coding Level of Care Code Est Pt Level 4 (59754) Diagnoses Tubular adenoma of colon D12.6 Pre-op examination Z01.818
[2023-02-09 09:36] VITALS: BP 134/76; PULSE 87; BMI 31.6
== END 2023-02-09 10:42 | disposition home or self-care (01) ==
PROVIDERS: PCP Physician Assistant; Visit Provider Nurse Practitioner
DX: D12.6 Benign neoplasm of colon, unspecified (principal); Z01.818 Encounter for other preprocedural examination
CPT/HCPCS: 99214

== ENCOUNTER → 2023-02-09 09:25 | Outpatient (BNVA) | payer MEDICARE, SELFPAY | PROVIDERS: PCP Physician Assistant; Visit Provider Nurse Practitioner | DX: Z01.818 Encounter for other preprocedural examination (principal); R63.4 Abnormal weight loss; D12.6 Benign neoplasm of colon, unspecified; K08.109 Complete loss of teeth, unspecified cause, unspecified class; F17.210 Nicotine dependence, cigarettes, uncomplicated | CPT/HCPCS: 99212 ==

== ENCOUNTER 2023-02-15 08:13 | Outpatient (REF) | payer MEDICARE, SELFPAY ==
--- NOTE | ~2023-02-15 | CT_ITS ---
EXAMINATION: CT CHEST WITH CONTRAST CLINICAL INFORMATION: 67-year-old male with abnormal weight loss and history of smoking COMPARISON: None available. TECHNIQUE: Multidetector volumetric CT imaging of the chest was obtained after the administration of 65 mL of Omnipaque 350 intravenous contrast without immediate adverse reactions. Axial MIP volume rendering provided. Sagittal and coronal reformatted images were obtained. This CT examination was performed using dose optimization techniques as appropriate, variously including the following: *Automated exposure control *Adjustment of mA and/or kV according to patient size (this includes techniques or standardized protocols for targeted exams where dose is matched to indication/reason for exam; i.e. extremities or head) *Use of iterative reconstruction technique DLP: 227 mGy-cm FINDINGS: CIGAR SORTER: Unremarkable LUNGS: The lungs are clear with no evidence of inflammation or nodules. MEDIASTINUM: The mediastinum is normal. Mild coronary artery calcifications present PLEURA: There is no pleural effusion. No pleural mass or thickening. AXILLA: No lymphadenopathy. UPPER ABDOMEN: Visualized liver revealed multiple low-attenuation lesions with sharp margins most likely cysts measured in the left lobe of the liver 5.2 cm in the largest visualized in the right lobe of the liver measured 5.8 cm. Gallbladder, visualized pancreas, kidneys are unremarkable. There is nodularity in both adrenal glands more prominent on the left where it measured 2.7 x 1.5 cm. OSSEOUS STRUCTURES: No lytic or blastic lesions seen. There are mild changes of degenerative spondylosis in the thoracic spine CT/CT chest w IV con IMPRESSION: 1. No lung nodules or masses. 2. Multiple hepatic cysts. 3. Nodularity of both adrenal glands. Fleischner guidelines were followed.
[2023-02-15] MEDS: iohexoL 350 MG/ML 75 ML INFUS..BTL 65 ML IV (08:45)
== END 2023-02-15 08:14 | disposition home or self-care (01) ==
LOC: HO.CT 08:13
PROVIDERS: PCP Physician Assistant; Visit Provider Physician Assistant
DX: R63.4 Abnormal weight loss (principal); F17.200 Nicotine dependence, unspecified, uncomplicated
CPT/HCPCS: 71260; Q9967

== ENCOUNTER 2023-02-19 09:22 | Outpatient (AMB) | payer MEDICARE, SELFPAY ==
--- NOTE | 2023-02-19 09:47 | MHC.OFFVIS ---
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 Electronic Required: No Allergies No Known Allergies [No Known Allergies*] Allergy (Verified 01/13/23 09:22) [facility] Medical History Edentulous Tobacco dependence Lumbar spinal stenosis Back pain Arthritis Elevated cholesterol Blood clot due to device, implant, or graft COPD (chronic obstructive pulmonary disease) Cellulitis Surgical History H/O colonoscopy History of appendectomy Family History Other Substance use disorder Social History Housing: House Are you a primary manager managed care to a significant other at home: No Do you presently have visiting nurse or other home services: No Alcohol intake: former Patient Tobacco Use Status: Current everyday Tobacco user Tobacco use type: Cigarette Cigarette Packs Per Day: 2 Cigarettes Per Day: 40.0 Years Smoked: 50 e-Cigarette/Vaping Use: Never Used Second Hand Smoke Exposure: Yes Advance Directives Date on File: 11/21/13 service: No Current occupational status: retired Cognitive needs: No Hearing needs: No Vision needs: Yes (reading glasses) Assessment & Plan Assessment & Plan (1) S/P spinal surgery: Code(s): Z98.890 - Other specified postprocedural states Plan Procedure: 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 He reports he is very satisfied with the surgery and feels much better than he did pre-operatively. He states that he is is up walking around and completing the majority of his ADLs. He also has been mowing his lawn and taking out the trash without difficulties. He reports that he no longer suffers from his right-sided leg pain and shooting radiculopathy. He stated I feel just like I did before ever had a problem with my back and legs. He still reports minor back aches but states that he feels that is not significant enough to pursue any form of treatment right now. Full strength in UE / LE. Mobility is intact. Sensation grossly intact. Patient is able to ambulate well, rises from a seated position without difficulty. Incision site is closed, well healing, with no signs of drainage. Darien declined to have a 2nd follow-up visit, and reported that he feels well enough to not have to return at this time. He was encouraged to reach out to our office if he would like to see us again for follow-up. Eron Chiang MD,PhD [facility] Coding Level of Care Code Global (43499) Diagnoses S/P spinal surgery Z98.890
== END 2023-02-19 09:57 | disposition home or self-care (01) ==
PROVIDERS: PCP Physician Assistant; Visit Provider Physician Assistant
DX: Z98.890 Other specified postprocedural states (principal)
CPT/HCPCS: 99024

== ENCOUNTER → 2023-02-19 09:22 | Outpatient (BNVA) | payer MEDICARE, SELFPAY | PROVIDERS: PCP Physician Assistant; Visit Provider Physician Assistant ==

== ENCOUNTER 2023-03-23 08:25 | Outpatient (AMB) | payer MEDICARE, SELFPAY ==
[2023-03-23 08:37] VITALS: BP 116/80; PULSE 90; O2SAT 96; BMI 30.8
--- NOTE | 2023-03-23 08:37 | A.OFFPC_ITS ---
Vital Signs 03/23/23 08:37 Height 6 ft Weight 227 lb 6 oz BMI 30.8 BP 116/80 Blood Pressure Location Lt brachial Position Sitting Pulse 90 Pulse Source Pulse Oximeter Pulse Oximetry (%) 96 Oxygen Delivery Method Room Air Intake Visit Reasons: 6month f/u Medical Information Specialist Required: No Accompanied by: Self / Same As Patient Allergies No Known Allergies [No Known Allergies*] Allergy (Verified 03/23/23 08:43) Medication List - Last Reconciled 03/23/23 by Shiraz Salinas PA-C No Known Home Meds Tobacco use date assessed: 12/25/22 Fall risk assessment: No Falls in past year Last assessed Fall Risk: 03/23/23 Dental Screening Dental Screen Date: 03/23/23 Did you have a dental visit in the last 12 months?: No Did you have a dental problem in the last 6 months where you did not have access to dental care?: No Was dental information given to patient?: Patient has dentist HPI 6month f/u HPI Details Patient is a 68-year-old male here today for follow-up visit. Patient has a past medical history significant for tobacco dependency, obesity, borderline high total cholesterol, COPD and lumbar disc disease. Lumbar disc disease: He has underwent lower back surgery and now feels great. Has lost weight and has been more physically active. Now off of all medications for pain. .. Weight loss: Has followed up with Gastroenterology and is due for colonoscopy. Has still noted to have some weight loss since last office visit. Recent CT chest without any pulmonary nodules. Did have nodularity on his adrenal glands and multiple liver cysts. .. Tobacco dependency: reports he is now less than 1 pack per day. He has found that Chantix has been helpful on reducing his smoking. He feels somewhat motivated to quit smoking now. .. Borderline high total cholesterol: Most recent lipid panel showing borderline high cholesterol. Has been making lifestyle changes and dietary modifications to reduce his cholesterol. .. Colon cancer screening: Has upcoming colonoscopy scheduled for spring. Laboratory Tests 09/14/22 10:43 Triglycerides 224 Cholesterol 236 LDL Cholesterol, C alc 157 PFSH Medical History Edentulous Tobacco dependence Lumbar spinal stenosis Back pain Arthritis Elevated cholesterol Blood clot due to device, implant, or graft COPD (chronic obstructive pulmonary disease) Cellulitis Surgical History H/O colonoscopy History of appendectomy Family History Other Substance use disorder Social History Housing: House Are you a primary primary care provider to a significant other at home: No Do you presently have visiting nurse or other home services: No Alcohol intake: former Comment: uses cane occasionally Patient Tobacco Use Status: Current everyday Tobacco user Tobacco use type: Cigarette Cigarette Packs Per Day: 2 Cigarettes Per Day: 40.0 Years Smoked: 50 e-Cigarette/Vaping Use: Never Used Second Hand Smoke Exposure: Yes Advance Directives Date on File: 11/21/13 service: No Current occupational status: retired Cognitive needs: No Hearing needs: No Vision needs: Yes (reading glasses) Questionnaire Thrive Questionnaire Date Thrive assessed: 09/17/22 SUZETTE-7 AMB Questionnaire SUZETTE-7 Date SUZETTE - 7 assessed: 09/17/22 Source: Developed by Drs. Jossue Causey, Mariola Paulino, Kuldeep Crow and colleagues, with an educational kristen from [employer]. Review of Systems Const Denies headache(s) Eyes Denies loss of vision ENT Denies vertigo, Denies dizziness, Denies headache(s) and Denies sore throat Card Denies chest pain, Denies leg edema and Denies lightheadedness Resp Denies cough, Denies hemoptysis and Denies wheezing GI Denies abdominal pain, Denies melena, Denies constipation, Denies diarrhea and Denies vomiting Denies dysuria, Denies urinary frequency and Denies urinary urgency Musc Denies arthralgias, Denies joint swelling, Denies numbness and Denies tingling Neuro Denies Abnormal speech present, Denies behavioral changes, Denies vertigo, Denies dizziness, Denies headache(s), Denies loss of vision, Denies memory loss, Denies numbness and Denies tingling Psych Denies anxiety, Denies behavioral changes, Denies depression, Denies memory loss and Denies panic attacks Lit/Lymph Denies easy bleeding and Denies easy bruising Aller/Immun Denies wheezing Physical exam (Primary Care) Vital Signs: Last Vital Signs Pulse 90 03/23/23 08:37 BP 116/80 03/23/23 08:37 Pulse Ox 96 03/23/23 08:37 Oxygen Delivery Method Room Air 03/23/23 08:37 BMI result Body Mass Index 30.8 BMI Assessment/Plan discussion: High Tobacco/Smoking Status: Tobacco use Status Tobacco use date assessed 12/25/22 03/23/23 08:38 Patient Tobacco Use Status Current everyday Tobacco 03/23/23 08:38 Tobacco use type Cigarette 03/23/23 08:38 e-Cigarette/Vaping Use Never Used 03/23/23 08:38 Are you ready to quit: Yes Tobacco cessation counseling provided: Yes Items discussed: Other Relapse Prevention: discussed negative mood or depression after quitting, weight gain after smoking is common and discussed dietary, exercise and/or lifestyle changes Number of minutes spent counselin CPT code: 71022 - 4-10 Minutes Thrive Assessment: Date of Thrive Assessment Date Thrive assessed 09/17/22 03/23/23 08:38 Const Other: -obese- weight loss noted General: healthy appearing, no acute distress, alert and awake Nutritional Appearance: well nourished Orientation/consciousness: oriented to person, oriented to place and oriented to time HENMT Ears: TM's normal bilaterally General nose exam: Normal nasal mucous membranes and turbinates present Eyes Conjunctivae: conjunctivae normal Sclerae: sclerae normal Pupils: Equal, round and reactive pupils present Neck Neck: Yes no lymphadenopathy and Yes no JVD Thyroid: Thyroid normal Carotids: no bruits Resp Effort & Inspection: normal respiratory effort and not tachypneic Auscultation: no crackles, no rales, no rhonchi and no wheezes Cardio Rate: regular rate Rhythm: regular rhythm Heart sounds: no murmurs and normal S1 and S2 GI Palpation (GI): Soft to palpation, nontender, no hepatomegaly and no splenomegaly Auscultation: normal bowel sounds Skin General skin exam: no rashes or lesions noted and dry skin Neuro General: oriented to person, oriented to place and oriented to time Cranial nerves: Yes Equal, round and reactive pupils present Speech: No Abnormal speech present Gait exam (Neuro): Normal gait present Motor exam (neuro): no tremor noted Extrem Right upper extremity: full ROM Left upper extremity: full ROM Right lower extremity: full ROM; no edema Left lower extremity: full ROM; no edema Psych Mental Status: mental status grossly normal Speech and movement: Normal speech and movement present Affect: normal affect Attitude: cooperative Thought process: Normal thought process present Office Procedures Flu Questionnaire Does the patient have a severe egg allergy?: No Does the patient have severe life threatening allergies?: No Does the patient have a fever or illness today?: No Has the patient ever had Guillain-Belle Syndrome?: No Has the patient ever had any past reaction to a flu shot?: No Immunizations flu vacc [id number] 6mos up(PF) 60 mcg(15 mcgx4)/0.5 mL IM syringe Performing Provider: Shiraz Salinas PA-C [facility] Administered by: DILLON Meade on 03/23/23 09:27 Dose Route Admin Location Dispensed Lot Number Expiration Date NDC Classifications Officer Cc/Cm 0.5 mL IM Right Deltoid 0.5 mL [id number] 10/24/23 88328-336-55 [place] VIS Given Date VIS Provided VIS Publication Date 03/23/23 Single Vaccine 20 Eligibility Eligibility Date Funding Source Not VFC Eligible 03/23/23 Private Assessment and Plan Assessment & Plan (1) Tobacco dependence: Code(s): F17.200 - Nicotine dependence, unspecified, uncomplicated Plan: Patient does understand he needs to quit smoking. Offered nicotine patches though he declines. Has some interest in restarting Chantix to help quit smoking thus will send in script. (2) Lumbar spinal stenosis: Code(s): M48.061 - Spinal stenosis, lumbar region without neurogenic claudication Qualifiers: Neurogenic claudication status: with neurogenic claudication Qualified Code(s): M48.062 - Spinal stenosis, lumbar region with neurogenic claudication Plan: He is status post lumbar surgery which has drastically improved his radiculopathy and lumbar spine pain. He still has soreness with activity. Will supply him with Aloxi can 15 mg he used on a p.r.n. basis. (3) COPD (chronic obstructive pulmonary disease): Comment: no inhalers or O2 use Code(s): J44.9 - Chronic obstructive pulmonary disease, unspecified Qualifiers: COPD type: emphysema Emphysema type: centrilobular Qualified Code(s): J43.2 - Centrilobular emphysema Plan: Unfortunately continues to smoke. He does understand he needs to completely quit smoking. CT chest stable without nodules. (4) Borderline high cholesterol: Code(s): E78.9 - Disorder of lipoprotein metabolism, unspecified Plan: Patient's most recent fasting lipid panel showing borderline high total cholesterol. Will be working on lifestyle modifications and diet modification to reduce his high cholesterol. Orders: Orders Influenza [id number] Immunization Today Z23 - Encounter for immunization Lipid Panel Today E78.9 - Disorder of lipoprotein metabolism, unspecified Comprehensive Edwards. Panel Fast Today R73.01 - Impaired fasting glucose Prostate Specific Antigen Scr Today R73.01 - Impaired fasting glucose, Z12.5 - Encounter for screening for malignant neoplasm of prostate Medications: New varenicline 1 mg PO BID 28 days 56 tabs 6RF F17.200 - Nicotine dependence, unspecified, uncomplicated meloxicam 15 mg PO DAILY 30 days 30 tabs 2RF M48.062 - Spinal stenosis, lumbar region with neurogenic claudication Review Flu Vaccine not done: patient reason Coding Level of Care Code Est Pt Level 4 (17243) Diagnoses Tobacco dependence F17.200 Spinal stenosis of lumbar region with neurogenic claudication M48.062 Neurogenic claudication status: with neurogenic claudication Centrilobular emphysema J43.2 COPD type: emphysema Emphysema type: centrilobular Borderline high cholesterol E78.9 Additional Codes Vital Signs *Quality* - CPT code: 90685 - 4-10 Minutes ([id number])
== END 2023-03-23 09:15 | disposition home or self-care (01) ==
PROVIDERS: Visit Provider Physician Assistant
DX: J43.2 Centrilobular emphysema (principal); F17.210 Nicotine dependence, cigarettes, uncomplicated; M48.062 Spinal stenosis, lumbar region with neurogenic claudication; Z23 Encounter for immunization; E78.9 Disorder of lipoprotein metabolism, unspecified
CPT/HCPCS: 90471; 90686; 99214; 99406

== ENCOUNTER 2023-06-28 07:33 | Day surgery (SDC) | payer MEDICARE, SELFPAY ==
--- NOTE | 2023-06-25 13:16 | P.CONAN_ITS ---
Documented by User: Monserrat Coto NP 06/25/23 13:16 HPI - Anesthesia Eval Consult details Narrative: 68yo M for Colonoscopy PMFSH Active Problems Active Problems: All Active Problems (Updated 02/09/23 @ 17:11 by TIKA Ojeda) S/P spinal surgery (Acute) Pre-op examination (Acute) Cough (Acute) Leukocytosis (Acute) BPH associated with nocturia (Acute) Weight loss (Acute) Preoperative clearance (Acute) Tubular adenoma of colon (Acute) Right sided sciatica (Acute) Screening for diabetes mellitus (DM) (Acute) Obese (Acute) Tobacco dependence (Acute) Colon cancer screening (Acute) Annual physical exam (Acute) Borderline high cholesterol (Acute) Elevated fasting blood sugar (Acute) Synovial cyst of lumbar facet joint (Acute) Lumbar spinal stenosis (Acute) COPD (chronic obstructive pulmonary disease) (Acute) Cellulitis (Acute) Blood clot due to device, implant, or graft (Acute) Past Medical History Medical History Edentulous Tobacco dependence Lumbar spinal stenosis Back pain Arthritis Elevated cholesterol Blood clot due to device, implant, or graft COPD (chronic obstructive pulmonary disease) Cellulitis Family History Family History Other Substance use disorder Family history of problems with anesthesia: No Surgical History Surgical History (Updated 06/28/23 @ 07:40 by Milvia Palacios RN) History of back surgery H/O colonoscopy History of appendectomy History of Problems with Anesthesia: No Social History Social History Housing: House Are you a primary medical care evaluation specialist to a significant other at home: No Do you presently have visiting nurse or other home services: No Alcohol intake: former Comment: uses cane occasionally Patient Tobacco Use Status: Current everyday Tobacco user Tobacco use type: Cigarette Cigarette Packs Per Day: 1 Cigarettes Per Day: 20.0 Years Smoked: 50 e-Cigarette/Vaping Use: Never Used Second Hand Smoke Exposure: Yes Use of substances other than those prescribed or required for medical reasons: No Are you DNR?: No Advance Directives: No Advance Directives Information Provided: Yes Advance Directives Date on File: 11/21/13 service: No Current occupational status: retired Cognitive needs: No Hearing needs: No Vision needs: Yes (reading glasses) Meds Allergies Allergy/AdvReac Type Severity Reaction Status Date / Time No Known Allergies Allergy Verified 06/28/23 07:41 [No Known Allergies*] Assessment and Plan Assessment Anesthesia Assessment: Chart Reviewed Final Anesthetic Review Family History of Problems with Anesthesia: No History of Problems with Anesthesia: No Documented by User: Kaity Odom MD 06/28/23 07:58 PMF Past Medical History Medical History Edentulous Tobacco dependence Lumbar spinal stenosis Back pain Arthritis Elevated cholesterol Blood clot due to device, implant, or graft COPD (chronic obstructive pulmonary disease) Cellulitis Family History Family History Other Substance use disorder Surgical History Surgical History (Updated 06/28/23 @ 07:40 by Milvia Palacios, RN) History of back surgery H/O colonoscopy History of appendectomy Social History Social History Housing: House Are you a primary medical care evaluation specialist to a significant other at home: No Do you presently have visiting nurse or other home services: No Alcohol intake: former Comment: uses cane occasionally Patient Tobacco Use Status: Current everyday Tobacco user Tobacco use type: Cigarette Cigarette Packs Per Day: 1 Cigarettes Per Day: 20.0 Years Smoked: 50 e-Cigarette/Vaping Use: Never Used Second Hand Smoke Exposure: Yes Use of substances other than those prescribed or required for medical reasons: No Are you DNR?: No Advance Directives: No Advance Directives Information Provided: Yes Advance Directives Date on File: 11/21/13 service: No Current occupational status: retired Cognitive needs: No Hearing needs: No Vision needs: Yes (reading glasses) Meds Allergies Allergy/AdvReac Type Severity Reaction Status Date / Time No Known Allergies Allergy Verified 06/28/23 07:41 [No Known Allergies*] Exam Airway Mallampati Class: II TM Dist: >3cm Neck ROM: Full Heart: rrr Lungs: cta Assessment and Plan Assessment Anesthesia Assessment: Anesthesia Plan Discussed Final Anesthetic Review NPO: Yes ASA Class: II Final Preanesthetic Review: No Changes in Pt Med Stat, Meds/Allgs Chart Reviewed and Consent Obtained/Reviewed Patient Risk: Low Procedure Risk: Low Anesthetic Plan Anesthetic Plan: MAC: Disposition: Standard PACU
--- NOTE | 2023-06-28 07:22 | MHC.SHP ---
Pre-Procedural Eval Section A - 24 Hr Update-Section A only Date of Service: 06/28/23 The patient is an INPATIENT: No The patient has been examined within 24 hours of the surgical procedure. The History & Physical has been completed within 30 days and I have reviewed it.: No Section B - Complete if H&P > 30 days Chief Complaint: Surveillance for colon polyps Relevant Family History (Specify if Yes): No Relevant Social History: Tobacco Use Present Medications: see Short Stay Collaborative assessment Medical History: Significant History (Edentulous Tobacco dependence Lumbar spinal stenosis Back pain Arthritis Elevated cholesterol Blood clot due to device, implant, or graft COPD (chronic obstructive pulmonary disease) Cellulitis) History of Previous Operations: Relevant previous surgery/procedure and date(s) (History of appendectomy, history of colonoscopy) Allergies: Allergies Allergy/AdvReac Type Severity Reaction Status Date / Time No Known Allergies Allergy Verified 03/23/23 08:43 [No Known Allergies*] Review of Systems Sugical H&P ROS: Negative: Constitution, Cardiovascular, Respiratory and Gastrointestinal Exam Surgical H&P Exam: Normal: Heart, Normal: Lungs, Normal: Extremities and Normal: Abdomen Plan Diagnosis/Plan: Unchanged I have reviewed the history and physical and performed a pertinent physical examination on my patient. No changes have occurred unless specified. Time Spent With Patient Time: Total time managing care of this patient today ____ minutes.
--- NOTE | 2023-06-28 07:26 | P.OP_ITS ---
Operative Note Operative Note Date of Service: 06/28/23 Narrative: COLONOSCOPY TILL CECUM WITH SNARE POLYPECTOMY AND SUBMUCOSAL INJECTION Pre-op diagnosis: Surveillance for colon polyps Post-op diagnosis:? Colon polyps, diverticulosis, hemorrhoids Endoscopist:? Leah Saba MD Anesthesia:?MAC Consent: Indications for the procedure and potential complications of bleeding, perforation, reaction to medications and missed diagnosis were discussed with the patient and informed consent was obtained. Instrument: Olympus CF H 190 L variable stiffness adult colonoscope Monitoring: Vital signs and clinical assessment, intermittent blood pressure monitoring, continuous EKG monitoring, Pulse oximetry and Carbon Dioxide monitoring were done throughout the procedure. Please see anesthesia flowsheet. Colon withdrawl time was 53 minutes. Procedure: The patient was placed in the left lateral decubitis position and pre-procedure medications were administered. After a digital rectal examination of the ano-rectum, the video colonoscope was inserted into the rectum and advanced through the colon to the cecum. The colonoscope was slowly withdrawn in a retrograde panoramic fashion and the colon mucosa was carefully examined including a retroflexed view of the rectum. Findings and interventions are described below. Procedure Difficulty: Colon was long and there was some loop formation Findings: Terminal Ileum: Not evaluated Cecum: A 15 mm sessile polyp - removed with a hot snare A 2 cms flat polyp overlying the ICV. Polyp was raised with 7 cc of Eleview and removed piecemeal with stiff hot snare. Ascending Colon: Two 8 to 10 mm sessile polyp in the proximal AC - removed with a hot snare Transverse Colon: Three 10-12 mm sessile polyps - removed with a hot snare Descending Colon: Normal Sigmoid Colon: Three 12- 15 mm sessile polyps - removed with a hot snare. Moderate diverticulosis Rectum: Two 8-12 mm sessile polyps - removed with a hot snare. Ano-rectum: Moderate internal hemorrhoids Colon preparation: Good after copious irrigation [place] Bowel Preparation Scale Right colon; 2 Transverse colon: 2 Left colon; 2 (0 = Unprepared colon segment with mucosa not seen due to solid stool that cannot be cleared. 1 = Portion of mucosa of the colon segment seen, but other areas of the colon segment not well seen due to staining, residual stool and/or opaque liquid. 2 = Minor amount of residual staining, small fragments of stool and/or opaque liquid, but mucosa of colon segment seen well. 3 = Entire mucosa of colon segment seen well with no residual staining, small fragments of stool or opaque liquid) Impression and Post Procedure Diagnosis: Colonoscopy Findings: Twelve medium sized polyp removed Several additional smaller polyps not removed due to excessive length of the procedure. Moderate diverticulosis seen in the sigmoid colon Moderate hemorrhoids on retroflexed exam. Plan: I will send a letter with pathology results. Pt has a FU appointment on 07/13/23 with Emilia Green NP Repeat Colonoscopy interval based on path results - in 6 to 12 months if polyps are adenomatous and due to additional smaller polyps not removed during colonoscopy today (needs additional laxatives, Dulcolax, and an adult colonoscope for future colonoscopies). Above findings were reviewed with the patient and colon polyps and diverticulosis handouts were given in the discharge area.
[2023-06-28 07:35] VITALS: BP 173/89; PULSE 87; RESP 16; TEMP 36.9; O2SAT 98
[2023-06-28 07:51] VITALS: BMI 32.7
[2023-06-28] MEDS: Lactated Ringers 1,000 ML 100 ML IVCONT (07:55)
[2023-06-28 09:15] VITALS: BP 127/89; PULSE 84; RESP 16; TEMP 36.1; O2SAT 96
[2023-06-28 09:30] VITALS: BP 151/97; PULSE 79; RESP 16; TEMP 36.6; O2SAT 97
== END 2023-06-28 10:35 | disposition home or self-care (01) ==
PROVIDERS: PCP Physician Assistant; Visit Provider Internal Medicine Gastroenterology
PROC: 0DJD8ZZ Inspection of Lower Intestinal Tract, Via Natural or Artificial Opening Endoscopic (ICD-10-PCS; CPT 45378; principal; 2023-06-28 08:30)
DX: Z12.11 Encounter for screening for malignant neoplasm of colon (principal); D12.0 Benign neoplasm of cecum; D12.2 Benign neoplasm of ascending colon; D12.4 Benign neoplasm of descending colon; K56.2 Volvulus; K57.30 Diverticulosis of large intestine without perforation or abscess without bleeding; K64.8 Other hemorrhoids; Z86.010 Personal history of colon polyps; E78.00 Pure hypercholesterolemia, unspecified; J44.9 Chronic obstructive pulmonary disease, unspecified; F17.210 Nicotine dependence, cigarettes, uncomplicated
CPT/HCPCS: 45385; 45381; 88305; J2704

== ENCOUNTER → 2023-06-28 07:33 | Outpatient (BNV) | payer MEDICARE, SELFPAY | PROVIDERS: PCP Physician Assistant; Visit Provider Internal Medicine Gastroenterology | DX: Z12.11 Encounter for screening for malignant neoplasm of colon (principal); Z86.010 Personal history of colon polyps; D12.0 Benign neoplasm of cecum; K57.30 Diverticulosis of large intestine without perforation or abscess without bleeding | CPT/HCPCS: 45381; 45385 ==

== ENCOUNTER 2023-07-21 08:11 | Outpatient (AMB) | payer MEDICARE, SELFPAY ==
[2023-07-21 08:19] VITALS: BP 122/86; BMI 32.5
--- NOTE | 2023-07-21 08:19 | MHC.PC.OV ---
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 Accompanied by: Self / Same As Patient Allergies No Known Allergies [No Known Allergies*] Allergy (Verified 07/21/23 08:30) Medication List - Last Reconciled 07/21/23 by Shiraz Salinas PA-C varenicline 1 mg PO BID 28 days Tobacco use date assessed: 07/21/23 Fall risk assessment: No Falls in past year Last assessed Fall Risk: 07/21/23 Dental Screening Dental Screen Date: 07/21/23 Did you have a dental visit in the last 12 months?: No Did you have a dental problem in the last 6 months where you did not have access to dental care?: No Was dental information given to patient?: Patient has dentist HPI f/u borderline high cholesterol HPI Details Patient is a 68-year-old male here today for follow-up visit. Patient has a past medical history significant for tobacco dependency, obesity, borderline high total cholesterol, COPD and lumbar disc disease. Lumbar disc disease: He has underwent lower back surgery and now feels great. Has lost weight and has been more physically active. Still has a minor localize backache that is tolerable. He is interested in trying a muscle relaxer as needed. .. Tobacco dependency: reports he is now less than 1 pack per day. He has found that Chantix has been helpful on reducing his smoking. He feels he has hit a plateau with smoking cessation. He is willing to try nicotine patches. .. Borderline high total cholesterol: Most recent lipid panel showing borderline high cholesterol. Has been making lifestyle changes and dietary modifications to reduce his cholesterol. .. [facility] Medical History Edentulous Tobacco dependence Lumbar spinal stenosis Back pain Arthritis Elevated cholesterol Blood clot due to device, implant, or graft COPD (chronic obstructive pulmonary disease) Cellulitis Surgical History History of back surgery H/O colonoscopy History of appendectomy Family History Other Substance use disorder Social History Housing: House Are you a primary child care sitter to a significant other at home: No Do you presently have visiting nurse or other home services: No Alcohol intake: former Comment: uses cane occasionally Patient Tobacco Use Status: Current everyday Tobacco user Tobacco use type: Cigarette Cigarette Packs Per Day: 1 Cigarettes Per Day: 20.0 Years Smoked: 50 e-Cigarette/Vaping Use: Never Used Second Hand Smoke Exposure: Yes Advance Directives Date on File: 11/21/13 service: No Current occupational status: retired Cognitive needs: No Hearing needs: No Vision needs: Yes (reading glasses) Questionnaire PHQ-9 Over the last 2 weeks, how often have you been bothered by any of the following problems? 1. Little interest or pleasure in doing things: not at all 2. Feeling down, depressed, or hopeless: not at all 3. Trouble falling or staying asleep, or sleeping too much: not at all 4. Feeling tired or having little energy: not at all 5. Poor appetite or overeating: not at all 6. Feeling bad about yourself - or that you are a failure or have let yourself or your family down: not at all 7. Trouble concentrating on things, such as reading the newspaper or watching television: not at all 8. Moving or speaking so slowly that other people could have noticed. Or the opposite - being so fidgety or restless that you have been moving around a lot more than usual: not at all 9. Thoughts that you would be better off or of hurting yourself in some way: not at all Total score: 0 Depression Screening Interpretation: Negative Depression Screening Done: Yes 81882 - PHQ-9 Billing: Yes Source: Developed by Drs. Jossue Causey, Mariola Paulino, Kuldeep Crow and colleagues, with an educational kristen from [employer]. Thrive Questionnaire Date Thrive assessed: 07/21/23 I am a: Patient What is your living situation today?: I have a steady place to live Within the past 12 months, did the food you bought not last and you didn't have the money to get more?: Never true Within the past 12 months, did you worry whether your food would run out before you got money to buy more?: Never true Do you have trouble paying for medicines?: No Do you have trouble getting transportation to medical appointments?: No Do you have trouble paying your heating and electricity bill?: No Do you have trouble taking care of your child, family member or friend?: No Do you have trouble with day-to-day activities such as bathing, preparing meals, shopping, managing finances, etc.?: No Are you currently unemployed and looking for a job?: No Are you interested in more education?: No Please select the resources that you would like help with: None Currently or been in a relationship where the following occur: no concerns reported THRIVE Score: 0 AUDIT C Alcohol Use Questionnaire (AUDIT-C) 1. How often do you have a drink containing alcohol?: Never Total Score: 0 SUZETTE-7 AMB Questionnaire SUZETTE-7 Date SUZETTE - 7 assessed: 07/21/23 Feeling nervous, anxious, or on edge: 0 = Not at all Not being able to stop or control worryin = Not at all Worrying too much about different things: 0 = Not at all Trouble relaxin = Not at all Being so restless that it is hard to sit still: 0 = Not at all Becoming easily annoyed or irritable: 0 = Not at all Feeling afraid as if something awful might happen: 0 = Not at all Total SUZETTE-7 score (0-4 normal; 5-9 mild; 10-14 moderate; 15-21 severe): 0 Source: Developed by Drs. Jossue Causey, Mariola Paulino, Kuldeep Crow and colleagues, with an educational kristen from [employer]. SUZETTE-7 Assessment Billing SUZETTE-7 Assessment Tool: SUZETTE-7 Assessment 32774 Review of Systems Const Denies headache(s) Eyes Denies loss of vision ENT Denies vertigo, Denies dizziness, Denies headache(s) and Denies sore throat Card Denies chest pain, Denies leg edema and Denies lightheadedness Resp Denies cough, Denies hemoptysis and Denies wheezing GI Denies abdominal pain, Denies melena, Denies constipation, Denies diarrhea and Denies vomiting Denies dysuria, Denies urinary frequency and Denies urinary urgency Musc Denies arthralgias, Denies joint swelling, Denies numbness and Denies tingling Neuro Denies Abnormal speech present, Denies behavioral changes, Denies vertigo, Denies dizziness, Denies headache(s), Denies loss of vision, Denies memory loss, Denies numbness and Denies tingling Psych Denies anxiety, Denies behavioral changes, Denies depression, Denies memory loss and Denies panic attacks Lit/Lymph Denies easy bleeding and Denies easy bruising Aller/Immun Denies wheezing Physical exam (Primary Care) Vital Signs: Last Vital Signs BP 122/86 07/21/23 08:19 BMI result Body Mass Index 32.5 Tobacco/Smoking Status: Tobacco use Status Tobacco use date assessed 07/21/23 07/21/23 08:24 Patient Tobacco Use Status Current everyday Tobacco 07/21/23 08:24 Tobacco use type Cigarette 07/21/23 08:24 e-Cigarette/Vaping Use Never Used 07/21/23 08:24 Are you ready to quit: No Tobacco cessation counseling provided: Yes Items discussed: Nicotine replacement Relapse Prevention: discussed the importance of a supportive environment, discussed negative mood or depression after quitting, weight gain after smoking is common and discussed dietary, exercise and/or lifestyle changes Number of minutes spent counselin CPT code: 09170 - 4-10 Minutes PHQ-9: PHQ-9 Score PHQ-9: Total score 0 07/21/23 08:24 Depression Screening Interpretation: Negative Thrive Assessment: Date of Thrive Assessment Date Thrive assessed 07/21/23 07/21/23 08:24 Currently or been in a relationship where the following occur: no concerns reported Const General: healthy appearing, no acute distress, alert and awake Nutritional Appearance: well nourished Orientation/consciousness: oriented to person, oriented to place and oriented to time [facility] Ears: TM's normal bilaterally General nose exam: Normal nasal mucous membranes and turbinates present Eyes Conjunctivae: conjunctivae normal Sclerae: sclerae normal Pupils: Equal, round and reactive pupils present Neck Neck: Yes no lymphadenopathy and Yes no JVD Thyroid: Thyroid normal Carotids: no bruits Resp Effort & Inspection: normal respiratory effort and not tachypneic Auscultation: no crackles, no rales, no rhonchi and no wheezes Cardio Rate: regular rate Rhythm: regular rhythm Heart sounds: no murmurs and normal S1 and S2 GI Palpation (GI): Soft to palpation, nontender, no hepatomegaly and no splenomegaly Auscultation: normal bowel sounds Skin General skin exam: no rashes or lesions noted and dry skin Neuro General: oriented to person, oriented to place and oriented to time Cranial nerves: Yes Equal, round and reactive pupils present Speech: No Abnormal speech present Gait exam (Neuro): Normal gait present Motor exam (neuro): no tremor noted Extrem Right upper extremity: full ROM Left upper extremity: full ROM Right lower extremity: full ROM; no edema Left lower extremity: full ROM; no edema Psych Mental Status: mental status grossly normal Speech and movement: Normal speech and movement present Affect: normal affect Attitude: cooperative Thought process: Normal thought process present Assessment and Plan Assessment & Plan (1) Tobacco dependence: Code(s): F17.200 - Nicotine dependence, unspecified, uncomplicated Plan: Patient does understand he needs to quit smoking. Continues on Chantix which has been helpful in reducing his smoking. Now willing to try nicotine patches. Discuss smoking cessation counseling and he is considering. (2) Lumbar spinal stenosis: Code(s): M48.061 - Spinal stenosis, lumbar region without neurogenic claudication Qualifiers: Neurogenic claudication status: with neurogenic claudication Qualified Code(s): M48.062 - Spinal stenosis, lumbar region with neurogenic claudication Plan: He is status post lumbar surgery which has drastically improved his radiculopathy and lumbar spine pain. He still has soreness with activity. (3) COPD (chronic obstructive pulmonary disease): Comment: no inhalers or O2 use Code(s): J44.9 - Chronic obstructive pulmonary disease, unspecified Qualifiers: COPD type: emphysema Emphysema type: centrilobular Qualified Code(s): J43.2 - Centrilobular emphysema Plan: Unfortunately continues to smoke. He does understand he needs to completely quit smoking. CT chest stable without nodules. (4) Borderline high cholesterol: Code(s): E78.9 - Disorder of lipoprotein metabolism, unspecified Plan: Patient's most recent fasting lipid panel showing borderline high total cholesterol. Will be working on lifestyle modifications and diet modification to reduce his high cholesterol. Medications: New baclofen 10 mg PO DAILY 30 days 30 tabs 1RF M48.062 - Spinal stenosis, lumbar region with neurogenic claudication nicotine 1 patch transdermal DAILY 28 days 28 ea 0RF F17.200 - Nicotine dependence, unspecified, uncomplicated nicotine 1 patch transdermal DAILY 14 days 14 ea 0RF F17.200 - Nicotine dependence, unspecified, uncomplicated Coding Level of Care Code Est Pt Level 4 (47642) Diagnoses Tobacco dependence F17.200 Spinal stenosis of lumbar region with neurogenic claudication M48.062 Neurogenic claudication status: with neurogenic claudication Centrilobular emphysema J43.2 COPD type: emphysema Emphysema type: centrilobular Borderline high cholesterol E78.9 Additional Codes SUZETTE-7 Assessment Billing - SUZETTE-7 Assessment Tool: SUZETTE-7 Assessment 49780 ([id number]) Vital Signs *Quality* - CPT code: 85079 - 4-10 Minutes ([id number])
== END 2023-07-21 08:51 | disposition home or self-care (01) ==
PROVIDERS: PCP Physician Assistant; Visit Provider Physician Assistant
DX: J43.2 Centrilobular emphysema (principal); F17.210 Nicotine dependence, cigarettes, uncomplicated; M48.062 Spinal stenosis, lumbar region with neurogenic claudication; E78.9 Disorder of lipoprotein metabolism, unspecified
CPT/HCPCS: 99214

== ENCOUNTER 2023-11-22 08:31 | Outpatient (AMB) | payer MEDICARE, SELFPAY ==
[2023-11-22 08:43] VITALS: BP 142/86; PULSE 82; O2SAT 96; BMI 32.4
--- NOTE | 2023-11-22 08:43 | A.OFFPC_ITS ---
Vital Signs 11/22/23 08:43 Height 5 ft 11 in Weight 232 lb 0.8 oz BMI 32.4 BP 142/86 H Blood Pressure Location Lt brachial Position Sitting Pulse 82 Pulse Source Pulse Oximeter Pulse Oximetry (%) 96 Oxygen Delivery Method Room Air Intake Visit Reasons: f/u HLD/ smoking cessation. [employer] Repairer Required: No Allergies No Known Allergies [No Known Allergies*] Allergy (Verified 11/22/23 08:54) Medication List - Last Reconciled 11/22/23 by Shiraz Salinas PA-C baclofen 10 mg PO DAILY 30 days nicotine 1 patch transdermal DAILY 28 days nicotine 1 patch transdermal DAILY 14 days varenicline 1 mg PO BID 28 days Tobacco use date assessed: 07/21/23 Fall risk assessment: No Falls in past year Last assessed Fall Risk: 11/22/23 Dental Screening Dental Screen Date: 07/21/23 HPI f/u HLD/ smoking cessation. HPI Details Patient is a 68-year-old male here today for follow-up visit. Patient has a past medical history significant for tobacco dependency, obesity, borderline high total cholesterol, COPD and lumbar disc disease. Lumbar disc disease: He has underwent lower back surgery and now feels great. Has lost weight and has been more physically active. Still has a minor localize backache that is tolerable. He is interested in trying a muscle relaxer as needed. .. Tobacco dependency: reports he is now less than 1 pack per day. He has found that Chantix has been helpful on reducing his smoking. He does have nicotine patches available to him and is willing to continue with the 21 mg patches. He feels he is nearly ready to quit smoking .. Borderline high total cholesterol: Most recent lipid panel showing borderline high cholesterol. Has been making lifestyle changes and dietary modifications to reduce his cholesterol. .. [facility] Medical History Edentulous Tobacco dependence Lumbar spinal stenosis Back pain Arthritis Elevated cholesterol Blood clot due to device, implant, or graft COPD (chronic obstructive pulmonary disease) Cellulitis Surgical History History of back surgery H/O colonoscopy History of appendectomy Family History Other Substance use disorder Social History Housing: House Are you a primary acute care occupational therapist to a significant other at home: No Do you presently have visiting nurse or other home services: No Alcohol intake: former Comment: uses cane occasionally Patient Tobacco Use Status: Current everyday Tobacco user Tobacco use type: Cigarette Cigarette Packs Per Day: 1 Cigarettes Per Day: 20.0 Years Smoked: 50 e-Cigarette/Vaping Use: Never Used Second Hand Smoke Exposure: Yes Advance Directives Date on File: 11/21/13 service: No Current occupational status: retired Cognitive needs: No Hearing needs: No Vision needs: Yes (reading glasses) Questionnaire Thrive Questionnaire Date Thrive assessed: 07/21/23 AUDIT C Alcohol Use Questionnaire (AUDIT-C) 1. How often do you have a drink containing alcohol?: Never Total Score: 0 SUZETTE-7 AMB Questionnaire SUZETTE-7 Date SUZETTE - 7 assessed: 07/21/23 Source: Developed by Drs. Jossue Causey, Mariola Paulino, Kuldeep Crow and colleagues, with an educational kristen from [employer]. Review of Systems Const Denies headache(s) Eyes Denies loss of vision ENT Denies vertigo, Denies dizziness, Denies headache(s) and Denies sore throat Card Denies chest pain, Denies leg edema and Denies lightheadedness Resp Denies cough, Denies hemoptysis and Denies wheezing GI Denies abdominal pain, Denies melena, Denies constipation, Denies diarrhea and Denies vomiting Denies dysuria, Denies urinary frequency and Denies urinary urgency Musc Denies arthralgias, Denies joint swelling, Denies numbness and Denies tingling Neuro Denies Abnormal speech present, Denies behavioral changes, Denies vertigo, Denies dizziness, Denies headache(s), Denies loss of vision, Denies memory loss, Denies numbness and Denies tingling Psych Denies anxiety, Denies behavioral changes, Denies depression, Denies memory loss and Denies panic attacks Lit/Lymph Denies easy bleeding and Denies easy bruising Aller/Immun Denies wheezing Physical exam (Primary Care) Vital Signs: Last Vital Signs Pulse 82 11/22/23 08:43 BP 142/86 H 11/22/23 08:43 Pulse Ox 96 11/22/23 08:43 Oxygen Delivery Method Room Air 11/22/23 08:43 BMI result Body Mass Index 32.4 Tobacco/Smoking Status: Tobacco use Status Tobacco use date assessed 07/21/23 11/22/23 08:48 Patient Tobacco Use Status Current everyday Tobacco 11/22/23 08:48 Tobacco use type Cigarette 11/22/23 08:48 e-Cigarette/Vaping Use Never Used 11/22/23 08:48 Are you ready to quit: No Tobacco cessation counseling provided: Yes Items discussed: Nicotine replacement Relapse Prevention: discussed the importance of a supportive environment, discussed negative mood or depression after quitting, weight gain after smoking is common and discussed dietary, exercise and/or lifestyle changes Number of minutes spent counselin CPT code: 70560 - 4-10 Minutes Thrive Assessment: Date of Thrive Assessment Date Thrive assessed 07/21/23 11/22/23 08:48 Const General: healthy appearing, no acute distress, alert and awake Nutritional Appearance: well nourished Orientation/consciousness: oriented to person, oriented to place and oriented to time HENMT Ears: TM's normal bilaterally General nose exam: Normal nasal mucous membranes and turbinates present Eyes Conjunctivae: conjunctivae normal Sclerae: sclerae normal Pupils: Equal, round and reactive pupils present Neck Neck: Yes no lymphadenopathy and Yes no JVD Thyroid: Thyroid normal Carotids: no bruits Resp Effort & Inspection: normal respiratory effort and not tachypneic Auscultation: no crackles, no rales, no rhonchi and no wheezes Cardio Rate: regular rate Rhythm: regular rhythm Heart sounds: no murmurs and normal S1 and S2 GI Palpation (GI): Soft to palpation, nontender, no hepatomegaly and no splenomegaly Auscultation: normal bowel sounds Skin General skin exam: no rashes or lesions noted and dry skin Neuro General: oriented to person, oriented to place and oriented to time Cranial nerves: Yes Equal, round and reactive pupils present Speech: No Abnormal speech present Gait exam (Neuro): Normal gait present Motor exam (neuro): no tremor noted Extrem Right upper extremity: full ROM Left upper extremity: full ROM Right lower extremity: full ROM; no edema Left lower extremity: full ROM; no edema Psych Mental Status: mental status grossly normal Speech and movement: Normal speech and movement present Affect: normal affect Attitude: cooperative Thought process: Normal thought process present Assessment and Plan Assessment & Plan (1) Tobacco dependence: Code(s): F17.200 - Nicotine dependence, unspecified, uncomplicated Plan: Patient does understand he needs to quit smoking. Continues on Chantix which has been helpful in reducing his smoking. HE IS WILLING TO RESTART CHANTIX. Also Now willing to try nicotine patches. Discuss smoking cessation counseling and he is considering. (2) Lumbar spinal stenosis: Code(s): M48.061 - Spinal stenosis, lumbar region without neurogenic claudication Qualifiers: Neurogenic claudication status: with neurogenic claudication Qualified Code(s): M48.062 - Spinal stenosis, lumbar region with neurogenic claudication Plan: He is status post lumbar surgery which has drastically improved his radiculopathy and lumbar spine pain. He still has soreness with activity. Continues to golf 4 days a week. Does use an muscle relaxer on an as needed basis for his low back pain. (3) COPD (chronic obstructive pulmonary disease): Comment: no inhalers or O2 use Code(s): J44.9 - Chronic obstructive pulmonary disease, unspecified Qualifiers: COPD type: emphysema Emphysema type: centrilobular Qualified Code(s): J43.2 - Centrilobular emphysema Plan: Unfortunately continues to smoke. He does understand he needs to completely quit smoking. CT chest stable without nodules. (4) Borderline high cholesterol: Code(s): E78.9 - Disorder of lipoprotein metabolism, unspecified Plan: Patient's most recent fasting lipid panel showing borderline high total cholesterol. Will be working on lifestyle modifications and diet modification to reduce his high cholesterol. Medications: New varenicline 1 mg PO BID 56 tabs 6RF 28 days F17.200 - Nicotine dependence, unspecified, uncomplicated Refilled nicotine 1 patch transdermal DAILY 28 ea 0RF 28 days F17.200 - Nicotine dependence, unspecified, uncomplicated baclofen 10 mg PO DAILY 30 tabs 1RF 30 days M48.062 - Spinal stenosis, lumbar region with neurogenic claudication Discontinued varenicline Discontinued Reason: Doctor's Order 1 mg PO BID 28 days 56 tabs 6RF F17.200 - Nicotine dependence, unspecified, uncomplicated Patient Instructions: Goal: Total cholesterol to be below 230, COMPLETELY STOPPED SMOKING Barriers: Adherence to physical activity and healthy eating habits, availability of cigarettes Coding Level of Care Code Est Pt Level 4 (52110) Diagnoses Tobacco dependence F17.200 Spinal stenosis of lumbar region with neurogenic claudication M48.062 Neurogenic claudication status: with neurogenic claudication Centrilobular emphysema J43.2 COPD type: emphysema Emphysema type: centrilobular Borderline high cholesterol E78.9 Additional Codes Vital Signs *Quality* - CPT code: 55419 - 4-10 Minutes ([id number])
== END 2023-11-22 09:08 | disposition home or self-care (01) ==
PROVIDERS: PCP Physician Assistant; Visit Provider Physician Assistant
DX: F17.200 Nicotine dependence, unspecified, uncomplicated (principal); M48.062 Spinal stenosis, lumbar region with neurogenic claudication; J43.2 Centrilobular emphysema; E78.9 Disorder of lipoprotein metabolism, unspecified
CPT/HCPCS: 99214; 99406

== ENCOUNTER 2024-03-15 06:38 | Outpatient (REF) | payer MEDICARE, SELFPAY ==
[2024-03-15 07:51] LABS: Alanine Aminotransferase 24 U/L (0-40); Alkaline Phosphatase 94 U/L (39-117); Anion Gap 11 (12-20); Aspartate Amino Transferase 18 U/L (5-37); Bilirubin Total 0.3 mg/dL (0.0-1.0); Blood Urea Nitrogen 19 mg/dL (9-16); Calcium 9.4 mg/dL (8.4-10.2); Carbon Dioxide 29 mmol/L (22-29); Chloride 111 mmol/L (96-108); Cholesterol 182 mg/dL (<200); Estimated Glomerular Filt Rate > 60; Glucose Fasting 103 mg/dL (60-99); HDL Cholesterol 40 mg/dL (>40); LDL Cholesterol Calculated 119 mg/dL (<100); Potassium 4.5 mmol/L (3.3-5.1); Sodium 146 mmol/L (135-145); Total Protein 6.7 g/dL (6.5-8.0); Triglycerides 118 mg/dL (<150)
[2024-03-15 08:09] LABS: Prostate Specific Antigen Scr 0.64 ng/mL (<0.05-4.0)
== END 2024-03-15 06:39 | disposition home or self-care (01) ==
LOC: HO.LAB 06:38
PROVIDERS: PCP Physician Assistant; Visit Provider Physician Assistant
DX: E78.9 Disorder of lipoprotein metabolism, unspecified (principal); R73.01 Impaired fasting glucose; Z12.5 Encounter for screening for malignant neoplasm of prostate
CPT/HCPCS: 36415; 80053; 80061; 84153

== ENCOUNTER 2024-03-16 11:26 | Outpatient (AMB) | payer MEDICARE, SELFPAY ==
[2024-03-16 11:42] VITALS: BP 134/92; PULSE 88; O2SAT 97; BMI 31.4
--- NOTE | 2024-03-16 11:42 | MHC.PC.OV ---
Vital Signs 03/16/24 11:42 Height 5 ft 11 in Weight 225 lb 2 oz BMI 31.4 BP 134/92 H Blood Pressure Location Lt brachial Position Sitting Pulse 88 Pulse Source Pulse Oximeter Pulse Oximetry (%) 97 Oxygen Delivery Method Room Air Intake Visit Reasons: physical Intake Note: Patient is here today for a physical. Pulverizer Operator Required: No Accompanied by: Self / Same As Patient Allergies No Known Allergies [No Known Allergies*] Allergy (Verified 03/16/24 11:58) Medication List - Last Reconciled 03/16/24 by Shiraz Salinas PA-C baclofen 10 mg PO DAILY 30 days nicotine 1 patch transdermal DAILY 28 days nicotine 1 patch transdermal DAILY 14 days varenicline 1 mg PO BID 28 days Tobacco use date assessed: 07/21/23 Fall risk assessment: No Falls in past year Last assessed Fall Risk: 03/16/24 Dental Screening Dental Screen Date: 07/21/23 HPI physical HPI Details Patient is a 69-year-old male here today for routine annual physical. Patient has a past medical history significant for tobacco dependency, obesity, borderline high total cholesterol, COPD and lumbar disc disease. Lumbar disc disease: He has underwent lower back surgery and now feels great. Has lost weight and has been more physically active. Still has a minor localize backache that is tolerable. He is interested in trying a muscle relaxer as needed. .. Tobacco dependency: reports he is now less than 1 pack every other day now, he feels proud that he has cut down significantly his smoking.. He has found that Chantix has been helpful on reducing his smoking. He does have nicotine patches available to him and is willing to continue with the 21 mg patches. He feels he is nearly ready to quit smoking .. Borderline high total cholesterol: Most recent lipid panel showing much improved total cholesterol and LDL. Has been making lifestyle changes and dietary modifications to reduce his cholesterol. Colorectal cancer screening: colonsocopy in 2023- multiple polyps Vaccines: consider shingrx, up-to-date with pneumonia, flu, COVID vaccines. COUNTS INCLUDE 234 BEDS AT THE [facility] Medical History Edentulous Tobacco dependence Lumbar spinal stenosis Back pain Arthritis Elevated cholesterol Blood clot due to device, implant, or graft COPD (chronic obstructive pulmonary disease) Cellulitis Surgical History History of back surgery H/O colonoscopy History of appendectomy Family History Other Substance use disorder Social History Housing: House Are you a primary menagerie caretaker to a significant other at home: No Do you presently have visiting nurse or other home services: No Alcohol intake: former Comment: uses cane occasionally Patient Tobacco Use Status: Current everyday Tobacco user Tobacco use type: Cigarette Cigarette Packs Per Day: 1 Cigarettes Per Day: 20.0 Years Smoked: 50 e-Cigarette/Vaping Use: Never Used Second Hand Smoke Exposure: Yes Advance Directives Date on File: 11/21/13 service: No Current occupational status: retired Cognitive needs: No Hearing needs: No Vision needs: Yes (reading glasses) Questionnaire PHQ-9 Over the last 2 weeks, how often have you been bothered by any of the following problems? 1. Little interest or pleasure in doing things: not at all 2. Feeling down, depressed, or hopeless: not at all 3. Trouble falling or staying asleep, or sleeping too much: not at all 4. Feeling tired or having little energy: not at all 5. Poor appetite or overeating: not at all 6. Feeling bad about yourself - or that you are a failure or have let yourself or your family down: not at all 7. Trouble concentrating on things, such as reading the newspaper or watching television: not at all 8. Moving or speaking so slowly that other people could have noticed. Or the opposite - being so fidgety or restless that you have been moving around a lot more than usual: not at all 9. Thoughts that you would be better off or of hurting yourself in some way: not at all Total score: 0 Depression Screening Interpretation: Negative Depression Screening Done: Yes 05890 - PHQ-9 Billing: Yes Source: Developed by Drs. Jossue Causey, Mariola Paulino, Kuldeep Crow and colleagues, with an educational kristen from [employer]. Thrive Questionnaire Date Thrive assessed: 03/16/24 I am a: Patient What is your living situation today?: I have a steady place to live Within the past 12 months, did the food you bought not last and you didn't have the money to get more?: Never true Within the past 12 months, did you worry whether your food would run out before you got money to buy more?: Never true Do you have trouble paying for medicines?: No Do you have trouble getting transportation to medical appointments?: No Do you have trouble paying your heating and electricity bill?: No Do you have trouble taking care of your child, family member or friend?: No Do you have trouble with day-to-day activities such as bathing, preparing meals, shopping, managing finances, etc.?: No Are you currently unemployed and looking for a job?: No Are you interested in more education?: No Please select the resources that you would like help with: None Currently or been in a relationship where the following occur: No concerns reported THRIVE Score: 0 AUDIT C Alcohol Use Questionnaire (AUDIT-C) 1. How often do you have a drink containing alcohol?: Never 3. How often do you have six or more drinks on one occasion?: Never Total Score: 0 SUZETTE-7 AMB Questionnaire SUZETTE-7 Date SUZETTE - 7 assessed: 03/16/24 Feeling nervous, anxious, or on edge: 0 = Not at all Not being able to stop or control worryin = Not at all Worrying too much about different things: 0 = Not at all Trouble relaxin = Not at all Being so restless that it is hard to sit still: 0 = Not at all Becoming easily annoyed or irritable: 0 = Not at all Feeling afraid as if something awful might happen: 0 = Not at all Total SUZETTE-7 score (0-4 normal; 5-9 mild; 10-14 moderate; 15-21 severe): 0 Source: Developed by Drs. Jossue Causey, Mariola Paulino, Kuldeep Crow and colleagues, with an educational kristen from [employer]. SUZETTE-7 Assessment Billing SUZETTE-7 Assessment Tool: SUZETTE-7 Assessment 47558 Review of Systems Const Denies body aches, Denies chills, Denies excessive sweating, Denies fatigue, Denies fever(s) and Denies headache(s) Eyes Denies blurry vision ENT Denies dysphagia, Denies vertigo, Denies dizziness, Denies headache(s), Denies hearing loss and Denies tinnitus Card Denies chest pain, Denies chest pain with activity, Denies syncope, Denies irregular heart rhythm and Denies dyspnea Resp Denies chest congestion, Denies cough, Denies hemoptysis, Denies dyspnea and Denies wheezing GI Denies abdominal pain, Denies melena, Denies hematochezia, Denies coffee ground emesis, Denies dysphagia, Denies diarrhea, Denies nausea and Denies vomiting Denies difficulty urinating, Denies dysuria, Denies urinary frequency, Denies urinary hesitancy and Denies urinary urgency Musc Denies arthralgias, Denies limited range of motion, Denies muscle cramps and Denies muscle weakness Skin/Breast Denies rash and Denies skin ulcer Neuro Denies Abnormal speech present, Denies confusion, Denies vertigo, Denies dizziness, Denies syncope, Denies headache(s), Denies memory loss and Denies seizure-like activity Psych Denies anxiety, Denies confusion, Denies depression, Denies memory loss, Denies panic attacks and Denies paranoia Endo Denies excessive sweating, Denies fatigue, Denies flushing, Denies polydipsia and Denies polyuria Aller/Immun Denies wheezing Physical exam (Primary Care) Vital Signs: Last Vital Signs Pulse 88 03/16/24 11:42 BP 134/92 H 03/16/24 11:42 Pulse Ox 97 03/16/24 11:42 Oxygen Delivery Method Room Air 03/16/24 11:42 BMI result Body Mass Index 31.4 Tobacco/Smoking Status: Tobacco use Status Tobacco use date assessed 07/21/23 03/16/24 11:42 Patient Tobacco Use Status Current everyday Tobacco 03/16/24 11:42 Tobacco use type Cigarette 03/16/24 11:42 e-Cigarette/Vaping Use Never Used 03/16/24 11:42 PHQ-9: PHQ-9 Score PHQ-9: Total score 0 03/16/24 12:01 Depression Screening Interpretation: Negative Thrive Assessment: Date of Thrive Assessment Date Thrive assessed 03/16/24 03/16/24 11:52 Currently or been in a relationship where the following occur: No concerns reported Const General: cooperative, comfortable, no acute distress, alert and awake; No confusion Orientation/consciousness: oriented to person, oriented to place, patient oriented x3 and No confusion HENMT Head: Yes normocephalic Ears: external ears normal and TM's normal bilaterally Face and sinus: No sinus tenderness Mouth: Normal oral and palatal mucosa present and tongue normal Teeth and gingiva: dentition normal and gingiva normal Throat: Yes posterior oropharynx normal, Yes tonsils normal and Yes uvula midline Eyes Conjunctivae: conjunctivae normal Sclerae: sclerae normal Pupils: Equal, round and reactive pupils present EOM: EOMs intact bilaterally Direct Ophthalmoscopy: No no photophobia Neck Neck: Yes no lymphadenopathy, No tender and Yes no JVD Thyroid: Thyroid normal Carotids: no bruits Chest Chest palpation & inspection: no tenderness Resp Effort & Inspection: normal respiratory effort, no audible wheezes, not labored and no stridor Auscultation: no crackles, no rales, no rhonchi and no wheezes Cardio Jugular venous distension: no JVD Rate: regular rate, not bradycardic and not tachycardic Rhythm: regular rhythm Bruits: no carotid bruits Peripheral pulses: Peripheral pulses 2+ throughout GI Inspection: Yes normal to inspection, No abdominal wall ecchymosis and No visible herniation Palpation (GI): Soft to palpation, nontender, no guarding, not rigid and No hepatosplenomegaly present Auscultation: normoactive bowel sounds General: Yes no CVA tenderness Back/Spine/Pelvis Back: no CVA tenderness and No back tenderness Cervical Spine: cervical ROM normal Thoracic/Lumbar Spine: thoracic and lumbar spine normal to inspection, straight leg raise negative bilaterally, No thoraco-lumbar ROM limited and No lumbar spinal tenderness Skin Lesions: no lesions Rashes: no rashes Wounds: no wounds Neuro General: oriented to person, oriented to place, patient oriented x3, CN's II-XI intact bilaterally and No confusion Cranial nerves: Yes Equal, round and reactive pupils present and Yes Normal accommodation reflex present Cognition (Neuro): normal cognition Speech: No Abnormal speech present Gait exam (Neuro): Normal gait present Motor exam (neuro): 5/5 motor strength present throughout Extrem Right upper extremity: full ROM; no cyanosis Left upper extremity: full ROM; no cyanosis Right lower extremity: no edema Left lower extremity: no edema Psych Appearance: grossly normal Mental Status: mental status grossly normal Affect: normal affect Attitude: cooperative Thought process: Normal thought process present Office Procedures Flu Questionnaire Does the patient have a severe egg allergy?: No Does the patient have severe life threatening allergies?: No Does the patient have a fever or illness today?: No Has the patient ever had Guillain-[place] Syndrome?: No Has the patient ever had any past reaction to a flu shot?: No Immunizations Fluarix Triv [id number] (PF) 45 mcg (15 mcg x 3)/0.5 mL IM syringe Performing Provider: Shiraz Salinas PA-C [place] [facility] [place] [facility] [place] [facility] Administered by: DILLON Meade on 03/16/24 11:50 Dose Route Admin Location Dispensed Lot Number Expiration Date [facility] 0.5 mL IM Right Deltoid 0.5 mL [id number] 10/23/24 [id number] [employer] VIS Given Date VIS Provided VIS Publication Date 03/16/24 Single Vaccine 20 Eligibility Eligibility Date Funding Source Not [facility] Eligible 03/16/24 Private Coding Level of Care Code Est Pt Prev Care >65y(63620) Diagnoses Annual physical exam Z00.00 Tobacco dependence F17.200 Neuropathy involving both lower extremities G57.93 Laterality: bilateral Borderline high cholesterol E78.9 Tubular adenoma of colon D12.6 Additional Codes SUZETTE-7 Assessment Billing - SUZETTE-7 Assessment Tool: SUZETTE-7 Assessment 43242 ([id number]) PHQ-9 - 43040 - PHQ-9 Billing: Yes ([id number]) Assessment & Plan Assessment & Plan (1) Annual physical exam: Code(s): Z00.00 - Encounter for general adult medical examination without abnormal findings Category: Medical Plan: As per HPI (2) Tobacco dependence: Code(s): F17.200 - Nicotine dependence, unspecified, uncomplicated Category: Medical Plan: patient does report he is almost ready to quit smoking. Does have nicotine replacement available to him. He has drastically reduced his smoking over the last year. (3) Neuropathy, lower extremity: Code(s): G57.90 - Unspecified mononeuropathy of unspecified lower limb Category: Medical Qualifiers: Laterality: bilateral Qualified Code(s): G57.93 - Unspecified mononeuropathy of bilateral lower limbs Plan: He does have signs and symptoms of bilateral lower extremity neuropathy. Has been using topical nerve cream which has been helpful. (4) Borderline high cholesterol: Code(s): E78.9 - Disorder of lipoprotein metabolism, unspecified Category: Medical Plan: [place] does have a history of borderline high cholesterol, most recent lipid panel showing much improved total cholesterol and LDL. He will continue working on lifestyle and dietary modifications to reduce his cholesterol. (5) Tubular adenoma of colon: Comment: multiple , 4 0n 2017 procedure Code(s): D12.6 - Benign neoplasm of colon, unspecified Category: Medical Plan: Patient has a history of multiple tubular adenoma colon polyps in 2023. Orders: Orders Influenza [id number] Immunization Today Z23 - Encounter for immunization Lipid Panel Today E78.9 - Disorder of lipoprotein metabolism, unspecified Comprehensive [place]. Panel Fast Today E78.9 - Disorder of lipoprotein metabolism, unspecified Complete Blood Count no Diff Today E78.9 - Disorder of lipoprotein metabolism, unspecified Prostate Specific Antigen Scr Today E78.9 - Disorder of lipoprotein metabolism, unspecified, Z12.5 - Encounter for screening for malignant neoplasm of prostate
== END 2024-03-16 12:17 | disposition home or self-care (01) ==
PROVIDERS: PCP Physician Assistant; Visit Provider Physician Assistant
DX: Z00.00 Encounter for general adult medical examination without abnormal findings (principal); F17.200 Nicotine dependence, unspecified, uncomplicated; G57.93 Unspecified mononeuropathy of bilateral lower limbs; E78.9 Disorder of lipoprotein metabolism, unspecified; D12.6 Benign neoplasm of colon, unspecified; Z23 Encounter for immunization

== ENCOUNTER → 2024-03-16 11:26 | Outpatient (BNVA) | payer MEDICARE, SELFPAY | PROVIDERS: PCP Physician Assistant; Visit Provider Physician Assistant | DX: Z00.00 Encounter for general adult medical examination without abnormal findings (principal); Z23 Encounter for immunization; G57.93 Unspecified mononeuropathy of bilateral lower limbs; E78.9 Disorder of lipoprotein metabolism, unspecified; D12.6 Benign neoplasm of colon, unspecified; F17.200 Nicotine dependence, unspecified, uncomplicated; Z71.6 Tobacco abuse counseling | CPT/HCPCS: 90471; 90656; 96127; 99397 ==

== ENCOUNTER 2024-10-30 14:59 | Outpatient (AMB) | payer MEDICARE, SELFPAY ==
--- NOTE | 2024-10-30 15:10 | MHC.PC.OV ---
Vital Signs 10/30/24 15:11 Height 5 ft 11 in Weight 213 lb 8 oz BMI 29.8 BP 114/84 Blood Pressure Location Lt brachial Position Right Lateral Pulse 64 Pulse Source Pulse Oximeter Pulse Oximetry (%) 94 Oxygen Delivery Method Room Air Intake Visit Reasons: f/u smoking cessation / labs - see comments Exercise Specialist Required: No Accompanied by: Self / Same As Patient Allergies No Known Allergies (No Known Allergies*) Allergy (Verified 10/30/24 15:19) Tobacco use date assessed: 10/30/24 Fall risk assessment: No Falls in past year Last assessed Fall Risk: 10/30/24 Dental Screening Dental Screen Date: 10/30/24 HPI f/u smoking cessation / labs - see comments HPI Details Patient is a 69-year-old male here today for a follow-up visit. Patient has a past medical history significant for tobacco dependency, obesity, borderline high total cholesterol, COPD and lumbar disc disease. Concern--> He experiences symptoms of peripheral neuropathy, such as numbness and burning in the feet, and is exploring vitamin B6 as a potential remedy. .. Tobacco dependency: reports he is now less than 16 cigarettes per. , he feels proud that he has cut down significantly his smoking.. He has stopped using nicotine patches and/or Chantix. He does have nicotine patches available to him He feels he is nearly ready to quit smoking .. Borderline high total cholesterol: Most recent lipid panel showing much improved total cholesterol and LDL. Has been making lifestyle changes and dietary modifications to reduce his cholesterol. [facility] Medical History Edentulous Tobacco dependence Lumbar spinal stenosis Back pain Arthritis Elevated cholesterol Blood clot due to device, implant, or graft COPD (chronic obstructive pulmonary disease) Cellulitis Surgical History History of back surgery H/O colonoscopy History of appendectomy Family History Other Substance use disorder Social History Housing: House Are you a primary primary care nurse to a significant other at home: No Do you presently have visiting nurse or other home services: No Alcohol intake: former Comment: uses cane occasionally Patient Tobacco Use Status: Current everyday Tobacco user Tobacco use type: Cigarette Cigarette Packs Per Day: 1 Cigarettes Per Day: 20.0 Years Smoked: 50 Packs Per Year: 50 Packs per year/per ci.00 e-Cigarette/Vaping Use: Never Used Second Hand Smoke Exposure: Yes Advance Directives Date on File: 11/21/13 service: No Current occupational status: retired Cognitive needs: No Hearing needs: No Vision needs: Yes (reading glasses) Questionnaire Thrive Questionnaire Date Thrive assessed: 10/30/24 I am a: Patient What is your living situation today?: I have a steady place to live Within the past 12 months, did the food you bought not last and you didn't have the money to get more?: Never true Within the past 12 months, did you worry whether your food would run out before you got money to buy more?: Never true Do you have trouble paying for medicines?: No Do you have trouble getting transportation to medical appointments?: No Do you have trouble paying your heating and electricity bill?: No Do you have trouble taking care of your child, family member or friend?: No Do you have trouble with day-to-day activities such as bathing, preparing meals, shopping, managing finances, etc.?: No Are you currently unemployed and looking for a job?: No Are you interested in more education?: No Please select the resources that you would like help with: None Currently or been in a relationship where the following occur: No concerns reported THRIVE Score: 0 AUDIT C Alcohol Use Questionnaire (AUDIT-C) 1. How often do you have a drink containing alcohol?: Never 3. How often do you have six or more drinks on one occasion?: Never Total Score: 0 SUZETTE-7 AMB Questionnaire SUZETTE-7 Date SUZETTE - 7 assessed: 10/30/24 Feeling nervous, anxious, or on edge: 0 = Not at all Not being able to stop or control worryin = Not at all Worrying too much about different things: 0 = Not at all Trouble relaxin = Not at all Being so restless that it is hard to sit still: 0 = Not at all Becoming easily annoyed or irritable: 0 = Not at all Feeling afraid as if something awful might happen: 0 = Not at all Total SUZETTE-7 score (0-4 normal; 5-9 mild; 10-14 moderate; 15-21 severe): 0 Source: Developed by Drs. Jossue Causey, Mariola Paulino, Kuldeep Crow and colleagues, with an educational kristen from [employer]. SUZETTE-7 Assessment Billing SUZETTE-7 Assessment Tool: SUZETTE-7 Assessment 76080 Review of Systems Const Denies headache(s) Eyes Denies loss of vision ENT Denies vertigo, Denies dizziness, Denies headache(s) and Denies sore throat Card Denies chest pain, Denies leg edema and Denies lightheadedness Resp Denies cough, Denies hemoptysis and Denies wheezing GI Denies abdominal pain, Denies melena, Denies constipation, Denies diarrhea and Denies vomiting Denies dysuria, Denies urinary frequency and Denies urinary urgency Musc Denies arthralgias, Denies joint swelling, Denies numbness and Denies tingling Neuro Denies Abnormal speech present, Denies behavioral changes, Denies vertigo, Denies dizziness, Denies headache(s), Denies loss of vision, Denies memory loss, Denies numbness and Denies tingling Psych Denies anxiety, Denies behavioral changes, Denies depression, Denies memory loss and Denies panic attacks Lit/Lymph Denies easy bleeding and Denies easy bruising Aller/Immun Denies wheezing Physical exam (Primary Care) Vital Signs: Last Vital Signs Pulse 64 10/30/24 15:11 BP 114/84 10/30/24 15:11 Pulse Ox 94 10/30/24 15:11 Oxygen Delivery Method Room Air 10/30/24 15:11 BMI result Body Mass Index 29.8 Tobacco/Smoking Status: Tobacco use Status Tobacco use date assessed 10/30/24 10/30/24 15:16 Patient Tobacco Use Status Current everyday Tobacco 10/30/24 15:16 Tobacco use type Cigarette 10/30/24 15:16 e-Cigarette/Vaping Use Never Used 10/30/24 15:16 Are you ready to quit: No Tobacco cessation counseling provided: Yes Items discussed: Nicotine replacement Relapse Prevention: discussed the importance of a supportive environment, discussed negative mood or depression after quitting, weight gain after smoking is common and discussed dietary, exercise and/or lifestyle changes Number of minutes spent counselin CPT code: 61168 - 4-10 Minutes Thrive Assessment: Date of Thrive Assessment Date Thrive assessed 10/30/24 10/30/24 15:16 Currently or been in a relationship where the following occur: No concerns reported Const General: healthy appearing, no acute distress, alert and awake Nutritional Appearance: well nourished Orientation/consciousness: oriented to person, oriented to place and oriented to time HENMT Ears: TM's normal bilaterally General nose exam: Normal nasal mucous membranes and turbinates present Eyes Conjunctivae: conjunctivae normal Sclerae: sclerae normal Pupils: Equal, round and reactive pupils present Neck Neck: Yes no lymphadenopathy and Yes no JVD Thyroid: Thyroid normal Carotids: no bruits Resp Effort & Inspection: normal respiratory effort and not tachypneic Auscultation: no crackles, no rales, no rhonchi and no wheezes Cardio Rate: regular rate Rhythm: regular rhythm Heart sounds: no murmurs and normal S1 and S2 GI Palpation (GI): Soft to palpation, nontender, no hepatomegaly and no splenomegaly Auscultation: normal bowel sounds Skin General skin exam: no rashes or lesions noted and dry skin Neuro General: oriented to person, oriented to place and oriented to time Cranial nerves: Yes Equal, round and reactive pupils present Speech: No Abnormal speech present Gait exam (Neuro): Normal gait present Motor exam (neuro): no tremor noted Extrem Right upper extremity: full ROM Left upper extremity: full ROM Right lower extremity: full ROM; no edema Left lower extremity: full ROM; no edema Psych Mental Status: mental status grossly normal Speech and movement: Normal speech and movement present Affect: normal affect Attitude: cooperative Thought process: Normal thought process present Coding Level of Care Code Est Pt Level 4 (01056) Diagnoses Borderline high cholesterol E78.9 Neuropathy of both feet G57.93 Tobacco dependence F17.200 Tubular adenoma of colon D12.6 Additional Codes SUZETTE-7 Assessment Billing - SUZETTE-7 Assessment Tool: SUZETTE-7 Assessment 35588 ([id number]) Vital Signs *Quality* - CPT code: 71708 - 4-10 Minutes ([id number]) Assessment & Plan Assessment & Plan (1) Borderline high cholesterol: Code(s): E78.9 - Disorder of lipoprotein metabolism, unspecified Category: Medical Plan: Patient has a history of borderline high cholesterol (2) Neuropathy of both feet: Code(s): G57.93 - Unspecified mononeuropathy of bilateral lower limbs Category: Medical Plan: The patient may try vitamin B6 supplementation and consider further evaluation if symptoms persist. (3) Tobacco dependence: Code(s): F17.200 - Nicotine dependence, unspecified, uncomplicated Category: Medical Plan: patient does report he is almost ready to quit smoking. Does have nicotine replacement available to him. He has drastically reduced his smoking over the last year. (4) Tubular adenoma of colon: Comment: multiple , 4 0n 2017 procedure Code(s): D12.6 - Benign neoplasm of colon, unspecified Category: Medical Plan: Patient has a history of multiple tubular adenoma colon polyps in 2023. Need Repeat this year Orders: Referrals Pulmonology Referral F17.200 - Nicotine dependence, unspecified, uncomplicated Gastroenterology Referral D12.6 - Benign neoplasm of colon, unspecified Medications: Discontinued varenicline tartrate Discontinued Reason: Doctor's Order 1 mg PO BID 28 days 56 tabs 6RF F17.200 - Nicotine dependence, unspecified, uncomplicated
[2024-10-30 15:11] VITALS: BP 114/84; PULSE 64; O2SAT 94; BMI 29.8
== END 2024-10-30 15:33 | disposition home or self-care (01) ==
LOC: HO.HMCH 15:00
PROVIDERS: PCP Physician Assistant; Visit Provider Physician Assistant
DX: E78.9 Disorder of lipoprotein metabolism, unspecified (principal); G57.93 Unspecified mononeuropathy of bilateral lower limbs; F17.200 Nicotine dependence, unspecified, uncomplicated; D12.6 Benign neoplasm of colon, unspecified

== ENCOUNTER → 2024-10-30 14:59 | Outpatient (BNVA) | payer MEDICARE, SELFPAY | PROVIDERS: PCP Physician Assistant; Visit Provider Physician Assistant | DX: F17.210 Nicotine dependence, cigarettes, uncomplicated (principal); J44.9 Chronic obstructive pulmonary disease, unspecified; E66.9 Obesity, unspecified; E78.9 Disorder of lipoprotein metabolism, unspecified; G57.93 Unspecified mononeuropathy of bilateral lower limbs; D12.6 Benign neoplasm of colon, unspecified; Z68.29 Body mass index [BMI] 29.0-29.9, adult | CPT/HCPCS: 96127; 99212 ==

== ENCOUNTER 2024-12-07 13:27 | Outpatient (AMB) | payer MEDICARE, SELFPAY ==
--- NOTE | 2024-12-07 13:31 | A.OFFVIS_ITS ---
Vital Signs 12/07/24 13:34 Height 5 ft 11 in Weight 206 lb BMI 28.7 BP 122/90 H Blood Pressure Location Rt brachial Position Sitting Pulse 90 Pulse Source Pulse Oximeter Pulse Oximetry (%) 97 Oxygen Delivery Method Room Air Intake Visit Reasons: Recall [place] q1yr. Multiple polyps. Allergies No Known Allergies (No Known Allergies*) Allergy (Verified 10/30/24 15:19) HPI HPI Recall [place] q1yr. Multiple polyps.: Details: Assessment & Plan (1) Tubular adenoma of colon: Comment: multiple , 4 0n 2017 procedure Code(s): D12.6 - Benign neoplasm of colon, unspecified Plan: The patient was last seen 06/2020 and then apparently was lost to follow-up. He says he was working many hours then but now he is retired. He just had back surgery for 2 cysts on my back. This went well for him. He is taking Chantix and his smoking has been cut in half. He was losing weight, but he was in bed r/t his back problems. He could not get up and get anything to eat w/o severe pain. He went from 254 to 229. He is now gaining wt again. He is trying to get his energy back after severe deconditioning. He had TA's on his last scope. He denies any current problems with his bowels or upper GI problems. There are no prior problems with anesthesia or sedation He does not have any heart problems, he is smoker and was recently diagnosed with COPD which currently is not treated. There are no infectious disease problems There is no known family history of colorectal cancer or polyps. (2) Pre-op examination: Code(s): Z01.818 - Encounter for other preprocedural examination Orders: Orders Colonoscopy - GI Use Only Today D12.6 - Benign neoplasm of colon, unspecified Medications: New peg 3350-electrolytes 236-22.74-6.74 -5.86 gram (Golytely) until fecal effluent is clear; do not exceed a total volume of 2,000 mL 240 mL PO Q10M 1 day 4,000 mL 0RF Z12.11 - Encounter for screening for malign COLONOSCOPY 06/2023 Findings: Terminal Ileum: Not evaluated Cecum: A 15 mm sessile polyp - removed with a hot snare A 2 cms flat polyp overlying the ICV. Polyp was raised with 7 cc of [place] and removed piecemeal with stiff hot snare. Ascending Colon: Two 8 to 10 mm sessile polyp in the proximal AC - removed with a hot snare Transverse Colon: Three 10-12 mm sessile polyps - removed with a hot snare Descending Colon: Normal Sigmoid Colon: Three 12- 15 mm sessile polyps - removed with a hot snare. Moderate diverticulosis Rectum: Two 8-12 mm sessile polyps - removed with a hot snare. Ano-rectum: Moderate internal hemorrhoids Impression and Post Procedure Diagnosis: Colonoscopy Findings: Twelve medium sized polyp removed Several additional smaller polyps not removed due to excessive length of the procedure. Moderate diverticulosis seen in the sigmoid colon Moderate hemorrhoids on retroflexed exam. Plan: I will send a letter with pathology results. Pt has a FU appointment on 07/13/23 with Emilia Geren NP Repeat Colonoscopy interval based on path results - in 6 to 12 months if polyps are adenomatous and due to additional smaller polyps not removed during colonoscopy today (needs additional laxatives, Dulcolax, and an adult colonoscope for future colonoscopies). BIOPSY Received: 06/28/23 Diagnosis A. Cecum, polypectomy: Fragments of tubular adenoma; negative for high-grade d ysplasia or carcinoma. B. Colon, ascending, polypectomies (2): Fragments of tubular adenomata; negative for high-grade dysplasia or carcinoma. C. Ileocecal valve, polypectomy: Fragments of tubular adenoma; negative for high-grade dysplasia or carcinoma. D. Colon, transverse, polypectomies (3): - Tubular adenomata (2); negative for high-grade dysplasia or carcinoma. - Hyperplastic mucosal polyp. E. Colon, sigmoid, polypectomies (3): - Tubular adenoma; negative for high-grade dysplasia or carcinoma. - Hyperplastic mucosal polyps. F. Rectum, polypectomies (2): Hyperplastic mucosal polyps. CORRESPONDENCE On 07/30/23 @ 08:11 Patricia Huynh Wrote To Leah Saba Letter mailed to patient advisng to call our office to [facility] for jan 2024. [facility] removed from item. On 07/30/23 @ 07:36 Leah Saba Wrote To Leah Saba (2) Please schedule colonoscopy in Dec, 2023 Thanks On 07/30/23 @ 00:00 System Wrote To Leah Saba (2) Reminder sent to recipient On 06/29/23 @ 15:53 Leah Saba Wrote To Leah Saba (2) Follow-up of multiple colon polyps. Please schedule repeat colon in Dec or January, TODAY'S VISIT PATIENT HAS BEEN LOST TO FOLLOW-UP since 01/2023. He denies any current problems with his bowels or upper GI problems. There are no prior problems with anesthesia or sedation He does not have any heart problems, he is smoker and was recently diagnosed with COPD which currently is not treated. There are no infectious disease problems There is no known family history of colorectal cancer or polyps [facility] Medical History Edentulous Tobacco dependence Lumbar spinal stenosis Back pain Arthritis Elevated cholesterol Blood clot due to device, implant, or graft COPD (chronic obstructive pulmonary disease) Cellulitis Surgical History History of back surgery H/O colonoscopy History of appendectomy Family History Other Substance use disorder Social History Housing: House Are you a primary critical care unit nurse to a significant other at home: No Do you presently have visiting nurse or other home services: No Alcohol intake: former Comment: uses cane occasionally Patient Tobacco Use Status: Current everyday Tobacco user Tobacco use type: Cigarette Cigarette Packs Per Day: 1 Cigarettes Per Day: 20.0 Years Smoked: 50 e-Cigarette/Vaping Use: Never Used Second Hand Smoke Exposure: Yes Advance Directives Date on File: 11/21/13 service: No Current occupational status: retired Cognitive needs: No Hearing needs: No Vision needs: Yes (reading glasses) Review of Systems Const Denies fatigue, Denies fever(s), Denies night sweats, Denies poor appetite and Reports weight loss ENT Reports Normal hearing present, Denies dental pain, Denies dysphagia, Denies hearing loss, Denies mouth pain, Denies odynophagia, Denies throat swelling, Denies tongue swelling and Reports other (Dentition adequate) Card Reports no additional complaints Resp Reports no additional complaints GI Details: Denies abdominal pain, Denies melena, Denies bloating, Denies hematochezia, Denies constipation, Denies GI cramping, Denies dysphagia, Denies excessive flatus, Denies early satiety, Denies heartburn, Denies diarrhea, Denies nausea, Denies odynophagia, Denies vomiting and Denies hematemesis Skin/Breast Denies pruritus, Denies lesions, Denies rash and Denies jaundice Neuro Reports Normal hearing present, Denies Abnormal speech present and Reports paresthesias Endo Denies fatigue Aller/Immun Denies throat swelling and Denies tongue swelling Physical Exam Vital Signs: Last Vital Signs Pulse 90 12/07/24 13:34 BP 122/90 H 12/07/24 13:34 Pulse Ox 97 12/07/24 13:34 Oxygen Delivery Method Room Air 12/07/24 13:34 BMI result Body Mass Index 28.7 Const General: cooperative, no acute distress, well developed and well groomed Nutritional Appearance: average body habitus and well nourished Orientation/consciousness: oriented to person, oriented to place and oriented to time Limitations: No language barrier HEENT Head: Yes normocephalic and Yes atraumatic Eyes General: appearance normal, both eyes and all related structures Pupils: Equal, round and reactive pupils present Neck Neck: Yes normal visual inspection and Yes no lymphadenopathy Thyroid: Thyroid normal Resp Effort & Inspection: normal respiratory effort and able to speak in complete sentences Auscultation: diminished lung sounds bilateral in the lower lung camp Cardio Rate: regular rate Rhythm: regular rhythm Heart sounds: Normal, physiologic split S2 sound present Peripheral pulses: radial pulses present and posterior tibial pulses present GI Inspection: No distended and No Abdominal panniculus present Palpation (GI): Soft to palpation, nontender, no guarding, not rigid and No hepatosplenomegaly present Percussion: Yes normal to percussion Auscultation: normal bowel sounds Rectal Exam - Male: Yes deferred Skin General skin exam: no rashes or lesions noted, turgor normal, skin not dry, no jaundice, No spider nevi and no striae Rashes: no rashes Nails: normal Neuro General: oriented to person, oriented to place and oriented to time Cranial nerves: Yes Equal, round and reactive pupils present and Yes Normal hearing present Speech: No Abnormal speech present Extrem General: Yes normal to inspection, No clubbing, No cyanosis and No edema Psych Appearance: grossly normal and well kempt Mental Status: mental status grossly normal Speech and movement: Normal speech and movement present Affect: normal affect Attitude: cooperative Thought process: Normal thought process present and not confabulating Thought content: Normal thought content present Insight: Good insight present (Psych) Judgement: Good judgement present (Psych) Assessment & Plan Assessment & Plan (1) Elevated fasting blood sugar: Code(s): R73.01 - Impaired fasting glucose Category: Medical (2) Unexplained weight loss: Code(s): R63.4 - Abnormal weight loss Category: Medical Plan PATIENT HAS BEEN LOST TO FOLLOW-UP since 01/2023. He denies any current problems with his bowels or upper GI problems. There are no prior problems with anesthesia or sedation He does not have any heart problems, he is smoker and was recently diagnosed with COPD which currently is not treated. There are no infectious disease problems There is no known family history of colorectal cancer or polyps The patient is a 69-year-old male presenting with a follow-up for multiple colonic polyps identified in June 2023 and recent unintended weight loss. The previous colonoscopy showed extensive colonic polyposis without family history of colorectal pathology. Current interventions for COPD are stable as smoking has reduced to 16 cigarettes daily. Weight loss is significant; initially at 250 pounds approximately three years ago, now fluctuating around 206 pounds. This loss aligns with dental issues resulting in extractions, influencing solid food intake and overall dietary habits. The patient experiences unresolved peripheral neuropathy associated with prior back surgery, though manageable without m edication. Although concerned about unexplained weight loss, particularly with a family history of cancer, abdominal discomfort or gastrointestinal irregularities are absent. Further diagnostic vigilance, particularly looking into potential endocrinological or metabolic dysfunction, is indicated due to recent lab anomalies suggesting elevated blood sugar. Appetite is slightly diminished but stable, correlating with less desire for second helpings and greater satisfaction with reduced portions. There is no current use of dietary supplements or specific food allergies reported. - Smokes 16 cigarettes daily, reduced from two packs daily. - Participates in golfing four times a week. - Experiences changes in diet due to recent dental extraction, primarily consuming liquids and softer foods. - No family history of colorectal cancer. - Positive family history of cancer, specific mention of a [id number] with pancreatic cancer. Orders: Orders TSH reflex Free T4 Today R63.4 - Abnormal weight loss, R73.01 - Impaired fasting glucose Hemoglobin A1c Today R63.4 - Abnormal weight loss, R73.01 - Impaired fasting glucose EGD/[place] Combo - GI Use Only Today R63.4 - Abnormal weight loss, R73.01 - Impaired fasting glucose Coding Level of Care Code New Pt Level 3 (46014) Diagnoses Elevated fasting blood sugar R73.01 Unexplained weight loss R63.4
--- NOTE | 2024-12-07 13:32 | A.OFFVIS_ITS ---
Vital Signs 12/07/24 13:34 Height 5 ft 11 in Weight 206 lb BMI 28.7 BP 122/90 H Blood Pressure Location Rt brachial Position Sitting Pulse 90 Pulse Source Pulse Oximeter Pulse Oximetry (%) 97 Oxygen Delivery Method Room Air Intake Visit Reasons: Recall [place] q1yr. Multiple polyps. Intake Note: Est pt for colo recall q1 year. CC: Pt denies any GI sx or concerns at this time. Airport Sales Agent Required: No Accompanied by: Self / Same As Patient Allergies No Known Allergies (No Known Allergies*) Allergy (Verified 10/30/24 15:19) [facility] Medical History Edentulous Tobacco dependence Lumbar spinal stenosis Back pain Arthritis Elevated cholesterol Blood clot due to device, implant, or graft COPD (chronic obstructive pulmonary disease) Cellulitis Surgical History History of back surgery H/O colonoscopy History of appendectomy Family History Other Substance use disorder Social History Housing: House Are you a primary healthcare analyst to a significant other at home: No Do you presently have visiting nurse or other home services: No Alcohol intake: former Comment: uses cane occasionally Patient Tobacco Use Status: Current everyday Tobacco user Tobacco use type: Cigarette Cigarette Packs Per Day: 1 Cigarettes Per Day: 20.0 Years Smoked: 50 e-Cigarette/Vaping Use: Never Used Second Hand Smoke Exposure: Yes Advance Directives Date on File: 11/21/13 service: No Current occupational status: retired Cognitive needs: No Hearing needs: No Vision needs: Yes (reading glasses) Coding
[2024-12-07 13:34] VITALS: BP 122/90; PULSE 90; O2SAT 97; BMI 28.7
== END 2024-12-07 14:52 | disposition home or self-care (01) ==
LOC: HO.HGI 13:28
PROVIDERS: PCP Physician Assistant; Visit Provider Nurse Practitioner
DX: R73.01 Impaired fasting glucose (principal); R63.4 Abnormal weight loss
CPT/HCPCS: 99213

== ENCOUNTER → 2024-12-07 13:27 | Outpatient (BNVA) | payer MEDICARE, SELFPAY | PROVIDERS: PCP Physician Assistant; Visit Provider Nurse Practitioner | DX: Z01.818 Encounter for other preprocedural examination (principal); D12.6 Benign neoplasm of colon, unspecified; R73.01 Impaired fasting glucose; R63.4 Abnormal weight loss; J44.9 Chronic obstructive pulmonary disease, unspecified | CPT/HCPCS: 99212 ==

== ENCOUNTER 2025-01-08 11:44 | Outpatient (REF) | payer MEDICARE, SELFPAY ==
[2025-01-08 12:24] LABS: Hemoglobin A1C 147.5757 umol/L; Total Hemoglobin (HGBA1C) 3753.4027 umol/L
== END 2025-01-08 11:45 | disposition home or self-care (01) ==
LOC: HO.LAB 11:44
PROVIDERS: Absent Provider Nurse Practitioner; PCP Physician Assistant; Visit Provider Physician Assistant
DX: R73.01 Impaired fasting glucose (principal); R63.4 Abnormal weight loss
CPT/HCPCS: 36415; 83036; 84443

== ENCOUNTER 2025-01-15 09:28 | Day surgery (SDC) | payer MEDICARE, SELFPAY ==
[2025-01-15 09:53] VITALS: BMI 27.8
[2025-01-15 09:56] VITALS: BP 149/90; PULSE 92; RESP 16; TEMP 36.6; O2SAT 97
[2025-01-15] MEDS: Lactated Ringers 1,000 ML 100 ML IVCONT (10:12)
--- NOTE | 2025-01-15 10:50 | MHC.SHP ---
Pre-Procedural Eval Section A - 24 Hr Update-Section A only Date of Service: 01/15/25 Section B - Complete if H&P > 30 days Chief Complaint: Surveillance for colon polyps, GERD Relevant Family History (Specify if Yes): No Relevant Social History: Tobacco Use Present Medications: see Short Stay Collaborative assessment Medical History: Significant History (Lumbar spinal stenosis Back pain Arthritis Elevated cholesterol Blood clot due to device, implant, or graft COPD (chronic obstructive pulmonary disease) Cellulitis) History of Previous Operations: Relevant previous surgery/procedure and date(s) (History of back surgery H/O colonoscopy History of appendectomy) Allergies: Allergies Allergy/AdvReac Type Severity Reaction Status Date / Time No Known Allergies (No Known Allergy Verified 01/15/25 09:51 Allergies*) Review of Systems Sugical H&P ROS: Negative: Constitution, Cardiovascular, Respiratory and Gastrointestinal Exam Surgical H&P Exam: Normal: Heart, Normal: Lungs, Normal: Extremities and Normal: Abdomen Plan Diagnosis/Plan: Unchanged I have reviewed the history and physical and performed a pertinent physical examination on my patient. No changes have occurred unless specified. Time Spent With Patient Time: Total time managing care of this patient today ____ minutes.
--- NOTE | 2025-01-15 11:45 | P.CONAN_ITS ---
Documented by User: Monserrat Coto NP 01/12/25 09:44 HPI - Anesthesia Eval Consult details Narrative: 69yo M for Upper Endoscopy and Colonoscopy [facility] Active Problems Active Problems: All Active Problems Nicotine dependence, cigarettes, uncomplicated (Acute) Unexplained weight loss (Acute) Neuropathy of both feet (Acute) Neuropathy, lower extremity (Acute) S/P spinal surgery (Acute) Cough (Acute) Leukocytosis (Acute) BPH associated with nocturia (Acute) Weight loss (Acute) Lumbar spinal stenosis (Acute) Synovial cyst of lumbar facet joint (Acute) Elevated fasting blood sugar (Acute) Borderline high cholesterol (Acute) Colon cancer screening (Acute) Obese (Acute) Right sided sciatica (Acute) Tubular adenoma of colon (Acute) COPD (chronic obstructive pulmonary disease) (Acute) Cellulitis (Acute) Blood clot due to device, implant, or graft (Acute) Past Medical History Medical History Tubular adenoma of colon Nicotine dependence, cigarettes, uncomplicated Edentulous Lumbar spinal stenosis Back pain Arthritis Elevated cholesterol Blood clot due to device, implant, or graft COPD (chronic obstructive pulmonary disease) Cellulitis Family History Family History Other Substance use disorder Family history of problems with anesthesia: No Surgical History Surgical History History of colonoscopy History of back surgery History of appendectomy History of Problems with Anesthesia: No Social History Social History Housing: House Are you a primary health care law specialist to a significant other at home: No Do you presently have visiting nurse or other home services: No Alcohol intake: former Comment: uses cane occasionally Patient Tobacco Use Status: Current everyday Tobacco user Tobacco use type: Cigarette Cigarette Packs Per Day: 1 Cigarettes Per Day: 4 Years Smoked: 50 e-Cigarette/Vaping Use: Never Used Second Hand Smoke Exposure: Yes Use of substances other than those prescribed or required for medical reasons: No Are you DNR?: No Advance Directives: No Advance Directives Information Provided: Yes Advance Directives Date on File: 11/21/13 service: No Current occupational status: retired Cognitive needs: No Hearing needs: No Vision needs: Yes (reading glasses) Meds Allergies Allergy/AdvReac Type Severity Reaction Status Date / Time No Known Allergies (No Known Allergy Verified 01/15/25 09:51 Allergies*) Home Medications ?Medication ?Instructions ?Recorded ?Confirmed ?Last Taken ?Type No Known Home Meds 01/15/25 01/15/25 Un known History Assessment and Plan Assessment Anesthesia Assessment: Chart Reviewed Final Anesthetic Review Family History of Problems with Anesthesia: No History of Problems with Anesthesia: No Documented by User: Milvia Holland DO 01/15/25 11:46 [facility] Past Medical History Medical History Tubular adenoma of colon Nicotine dependence, cigarettes, uncomplicated Edentulous Lumbar spinal stenosis Back pain Arthritis Elevated cholesterol Blood clot due to device, implant, or graft COPD (chronic obstructive pulmonary disease) Cellulitis Family History Family History Other Substance use disorder Family history of problems with anesthesia: No Surgical History Surgical History History of colonoscopy History of back surgery History of appendectomy History of Problems with Anesthesia: No Social History Social History Housing: House Are you a primary health care law specialist to a significant other at home: No Do you presently have visiting nurse or other home services: No Alcohol intake: former Comment: uses cane occasionally Patient Tobacco Use Status: Current everyday Tobacco user Tobacco use type: Cigarette Cigarette Packs Per Day: 1 Cigarettes Per Day: 4 Years Smoked: 50 e-Cigarette/Vaping Use: Never Used Second Hand Smoke Exposure: Yes Use of substances other than those prescribed or required for medical reasons: No Are you DNR?: No Advance Directives: No Advance Directives Information Provided: Yes Advance Directives Date on File: 11/21/13 service: No Current occupational status: retired Cognitive needs: No Hearing needs: No Vision needs: Yes (reading glasses) Meds Allergies Allergy/AdvReac Type Severity Reaction Status Date / Time No Known Allergies (No Known Allergy Verified 01/15/25 09:51 Allergies*) Home Medications ?Medication ?Instructions ?Recorded ?Confirmed ?Last Taken ?Type No Known Home Meds 01/15/25 01/15/25 Un known History Exam Exam Date and Time: 01/15/25 1144 Height,Weight and Vital Signs: Vital Signs Temperature 97.8 F 01/15/25 09:56 Pulse Rate 92 01/15/25 09:56 Respiratory Rate 16 01/15/25 09:56 Blood Pressure 149/90 H 01/15/25 09:56 Pulse Oximetry 97 01/15/25 09:56 Oxygen Delivery Method Room Air 01/15/25 09:56 Temperature 97.8 F 01/15/25 09:56 Pulse Rate 92 01/15/25 09:56 Respiratory Rate 16 01/15/25 09:56 Blood Pressure 149/90 H 01/15/25 09:56 Pulse Oximetry 97 01/15/25 09:56 Oxygen Delivery Method Room Air 01/15/25 09:56 Airway Mallampati Class: I TM Dist: >3cm Neck ROM: Full Loose/Missing/Broken Teeth: Yes (edentulous) Heart: S1S2 Lungs: CTAB Assessment and Plan Assessment Anesthesia Assessment: Anesthesia Plan Discussed and Chart Reviewed Final Anesthetic Review Family History of Problems with Anesthesia: No History of Problems with Anesthesia: No NPO: Yes ASA Class: II Final Preanesthetic Review: No Changes in Pt Med Stat, Meds/Allgs Chart Reviewed, Consent Obtained/Reviewed and Anes Risks/Benef Reviewed Patient Risk: Low Procedure Risk: Low Anesthetic Plan Anesthetic Plan: MAC: and Agree w/ Assess. and Plan Disposition: Standard PACU
--- NOTE | 2025-01-15 12:02 | P.OPN-COLO_ITS ---
Colonoscopy Operative Note Operative Note Date of Service: 01/15/25 Narrative: FLEXIBLE TRANSORAL UPPER GASTROINTESTINAL ENDOSCOPY WITH BIOPSIES AND COLONOSCOPY TILL CECUM WITH BIOPSIES, SNARE POLYPECTOMY AND SUBMUCOSAL INJECTION Pre-op diagnosis: Surveillance for colon polyps, GERD Post-op diagnosis: GERD, Gastritis, Gastric ulcers, duodenal nodule, prominent duodenal folds, Colon Polyps, Diverticulosis, hemorrhoids Post-operative Diagnosis: : gastritis, duodenal ulcer, duodenal nodule, colon polyps, diverticulosis, hemorrhoids Endoscopist:? Leah Saba MD Anesthesia:?MAC UPPER ENDOSCOPY Consent: Indications for the procedure and potential complications of bleeding, perforation, reaction to medications and missed diagnosis were discussed with the patient and informed consent was obtained. Instrument: Olympus GIF H 190 mid size upper endoscope Monitoring: Vital signs and clinical assessment, continuous EKG monitoring, Pulse oximetry, Carbon Dioxide monitoring and blood pressure monitoring were done throughout the procedure. Procedure: The patient was placed in the left lateral decubitis position and pre-procedure medications were administered and a bite block was placed. The endoscope was inserted into the mouth and advanced under direct vision to the third part of duodenum. A careful inspection was made as the upper endoscope was withdrawn including a retroflexed examination of the proximal stomach; Findings and interventions are described below. Findings: Larynx: Normal Esophagus: GE junction at 42 cms. Focal esophagitis at GE junction and no Waters's. Stomach: Moderate diffuse gastric erythema - biopsies were obtained from the antrum. Two 4-5 mm non-bleeding ulcers Grade 2 flap valve on retroflexed examination of the cardia. Duodenum: Normal bulb and descending duodenum Biopsies were obtained from descending duodenum to check for celiac sprue Intervention: Biopsies as noted above COLONOSCOPY PROCEDURE NOTE Instrument: Olympus PCF H 190 L variable stiffness pediatric colonoscope Monitoring: Vital signs and clinical assessment, intermittent blood pressure monitoring, continuous EKG monitoring, Pulse oximetry and Carbon Dioxide monitoring were done throughout the procedure. Please see anesthesia flowsheet. Colon withdrawl time was 44 minutes. Procedure: The patient was placed in the left lateral decubitis position and pre-procedure medications were administered. After a digital rectal examination of the ano-rectum, the video colonoscope was inserted into the rectum and advanced through the colon to the cecum. The colonoscope was slowly withdrawn in a retrograde panoramic fashion and the colon mucosa was carefully examined including a retroflexed view of the rectum. Findings and interventions are described below. Procedure Difficulty: Colon was long and tortuous and there was some loop formation Findings: Terminal Ileum: Not evaluated Cecum: A 6-7 mm sessile polyp adjacent to the appendicular orifice. Polyp was raised with 2 cc of [place] and ablated with a hot snare after obtaining a cold biopsy Ascending Colon: A 7-8 mm sessile polyp - removed with a hot snare. Transverse Colon: Two 8 to 12 mm sessile polyps - removed with a stiff hot snare. Descending Colon: Normal Sigmoid Colon: Three 8 to 12 mm sessile polyps - removed with a hot snare. Rectum: Three 5 to 10 mm diminutive appearing polyps - removed with a hot and cold snare. Ano-rectum: Moderate internal hemorrhoids Colon preparation: Good after copious irrigation. [place] Bowel Preparation Scale Right colon; 2 Transverse colon: 2 Left colon; 2 (0 = Unprepared colon segment with mucosa not seen due to solid stool that cannot be cleared. 1 = Portion of mucosa of the colon segment seen, but other areas of the colon segment not well seen due to staining, residual stool and/or opaque liquid. 2 = Minor amount of residual staining, small fragments of stool and/or opaque liquid, but mucosa of colon segment seen well. 3 = Entire mucosa of colon segment seen well with no residual staining, small fragments of stool or opaque liquid) Impression and Post Procedure Diagnosis: Endoscopy Findings: ESOPHAGUS: Focal esophagitis at GE junction and no Waters's. STOMACH: Moderate diffuse gastritis and two 4-5 mm non-bleeding ulcers DUODENUM: Normal - biopsied to check for celiac sprue Colonoscopy Findings: Nine small to medium sized polyps were removed Moderate diverticulosis seen in the sigmoid colon Moderate hemorrhoids on retroflexed exam. Plan: Pt has a FU appointment on 02/01/25 with Emilia Green NP. Repeat EGD in 3-4 months to confirm ulcers have healed. Repeat Colonoscopy in 3-5 years if polyps are adenomatous and 10 year if polyps are hyperplastic. A summary of above findings and relevant handouts were given to the patient. Pt advised to start Omeprazole 20 mg daily for gastric ulcers BIOPSIES SHOWED: A. Duodenal nodule, biopsy: Superficial fragments of duodenal mucosa within normal limits; preserved villous architecture and no increased intraepithelial lymphocytes seen. B. Duodenum, fold, biopsy: Mild chronic duodenitis with foveolar metaplasia suggestive of peptic etiology. C. Stomach, antrum, biopsy: Gastric antral mucosa within normal limits; negative for Helicobacter pylori, intestinal metaplasia and dysplasia. D. Stomach, ulcer, biopsy: Gastric antral/body mucosa with reactive gastropathy and reactive epithelial changes consistent with changes adjacent to ulcer; negative for Helicobacter pylori, intestinal metaplasia and dysplasia. E. Stomach, body, biopsy: Gastric body mucosa within normal limits; negative for Helicobacter pylori, intestinal metaplasia and dysplasia. F. Colon, cecum, polypectomy: Colonic mucosa with a prominent lymphoid aggregate; negative for dysplasia. G. Colon, ascending, polypectomy: Tubular adenoma, multiple fragments; negative for high-grade dysplasia. H. Colon, transverse, polypectomy x 2: Tubular adenoma (1); negative for high- grade dysplasia. I. Colon, sigmoid, polypectomy x3: Colonic mucosa with multiple lymphoid a ggregates; negative for a hyperplastic or neoplastic process. J. Rectum, polypectomy x3: Hyperplastic polyp (3) Letter sent with the patient with biopsy results. Patient placed on the procedure recall list for repeat EGD in 3-4 months and repeat colonoscopy in 3 years.
[2025-01-15 13:01] VITALS: BP 126/78; PULSE 76; RESP 16; TEMP 36.1; O2SAT 97
[2025-01-15 13:12] VITALS: BP 136/88; PULSE 79; RESP 16; TEMP 36.1; O2SAT 97
== END 2025-01-15 13:31 | disposition home or self-care (01) ==
PROVIDERS: PCP Physician Assistant; Visit Provider Internal Medicine Gastroenterology
PROC: (CPT 45385; principal; 2025-01-15 11:10)
DX: Z12.11 Encounter for screening for malignant neoplasm of colon (principal); Z86.0101 Personal history of adenomatous and serrated colon polyps; D12.2 Benign neoplasm of ascending colon; D12.3 Benign neoplasm of transverse colon; K63.5 Polyp of colon; K62.1 Rectal polyp; K57.30 Diverticulosis of large intestine without perforation or abscess without bleeding; K64.8 Other hemorrhoids; K21.9 Gastro-esophageal reflux disease without esophagitis; R63.4 Abnormal weight loss; Z68.28 Body mass index [BMI] 28.0-28.9, adult; R73.01 Impaired fasting glucose; K29.50 Unspecified chronic gastritis without bleeding; K25.9 Gastric ulcer, unspecified as acute or chronic, without hemorrhage or perforation; K31.7 Polyp of stomach and duodenum; K29.80 Duodenitis without bleeding; E78.00 Pure hypercholesterolemia, unspecified; M48.061 Spinal stenosis, lumbar region without neurogenic claudication; J44.9 Chronic obstructive pulmonary disease, unspecified; K08.409 Partial loss of teeth, unspecified cause, unspecified class; G62.9 Polyneuropathy, unspecified; Z98.890 Other specified postprocedural states; Z99.89 Dependence on other enabling machines and devices; F17.210 Nicotine dependence, cigarettes, uncomplicated
CPT/HCPCS: 45385; 45380; 45381; 43239; 88305; 88313; 88342; J2003; J2704

== ENCOUNTER → 2025-01-15 09:28 | Outpatient (BNV) | payer MEDICARE, SELFPAY | PROVIDERS: PCP Physician Assistant; Visit Provider Internal Medicine Gastroenterology | DX: K29.70 Gastritis, unspecified, without bleeding (principal); K25.9 Gastric ulcer, unspecified as acute or chronic, without hemorrhage or perforation; K31.89 Other diseases of stomach and duodenum; Z12.11 Encounter for screening for malignant neoplasm of colon; K63.5 Polyp of colon; K57.90 Diverticulosis of intestine, part unspecified, without perforation or abscess without bleeding; K64.8 Other hemorrhoids; Z86.0100 Personal history of colon polyps, unspecified | CPT/HCPCS: 43239; 45380; 45381; 45385 ==

== ENCOUNTER 2025-01-29 10:15 | Outpatient (AMB) | payer MEDICARE, SELFPAY ==
--- NOTE | 2025-01-29 10:19 | MHC.PC.OV ---
Vital Signs 01/29/25 10:21 01/29/25 10:59 Height 6 ft Weight 206 lb BMI 27.9 BP 142/84 H 132/82 Blood Pressure Location Lt brachial Position Sitting Pulse 96 Pulse Source Pulse Oximeter Temp 97.3 F Temp Source Temporal Artery Scan Pulse Oximetry (%) 98 Oxygen Delivery Method Room Air Intake Visit Reasons: annual exam Intake Note: Patient is here today for a physical. Movie Writer Required: No Senior Online Marketing Manager: Not Required per policy Accompanied by: Self / Same As Patient Allergies No Known Allergies (No Known Allergies*) Allergy (Verified 01/29/25 10:51) Medication List - Last Reconciled 01/29/25 by Shiraz Salinas PA-C omeprazole 20 mg PO DAILY 60 days Tobacco use date assessed: 01/29/25 Fall risk assessment: No Falls in past year Last assessed Fall Risk: 01/29/25 Dental Screening Dental Screen Date: 10/30/24 HPI annual exam HPI Details Patient is a 69-year-old male here today for an annual physical. Patient has a past medical history significant for tobacco dependency, obesity, borderline high total cholesterol, COPD and lumbar disc disease. Concern--> .. Tobacco dependency: reports he is now less than 5 cigarettes per day. , he feels proud that he has cut down significantly his smoking.. He has stopped using nicotine patches and/or Chantix. He does have nicotine patches available to him He feels he is nearly ready to quit smoking .. Borderline high total cholesterol: Most recent lipid panel showing much improved total cholesterol and LDL. Has been making lifestyle changes and dietary modifications to reduce his cholesterol. Colorectal cancer screening: colonsocopy in 2024- multiple polyps noted, continues to follow up with GI Vaccines: consider shingrex, up-to-date with pneumonia,, COVID vaccines, considering flu vaccine. Laboratory Tests 09/14/22 03/15/24 01/08/25 10:43 06:47 11:51 Sodium 146 H Fasting Glucose 103 H Hemoglobin A1c % 5.7 Cholesterol 236 182 LDL Cholesterol, C alc 157 119 H PSA Screen 0.64 PFSH Medical History Tubular adenoma of colon Nicotine dependence, cigarettes, uncomplicated Edentulous Lumbar spinal stenosis Back pain Arthritis Elevated cholesterol Blood clot due to device, implant, or graft COPD (chronic obstructive pulmonary disease) Cellulitis Surgical History History of endoscopy History of colonoscopy History of back surgery History of appendectomy Family History Other Substance use disorder Social History Housing: House Are you a primary career placement services counselor to a significant other at home: No Do you presently have visiting nurse or other home services: No Alcohol intake: former Comment: uses cane occasionally Patient Tobacco Use Status: Current everyday Tobacco user Tobacco use type: Cigarette Cigarette Packs Per Day: 0.5 Cigarettes Per Day: 5 Years Smoked: 50 e-Cigarette/Vaping Use: Never Used Second Hand Smoke Exposure: Yes Advance Directives Date on File: 11/21/13 service: No Current occupational status: retired Cognitive needs: No Hearing needs: No Vision needs: Yes (reading glasses) Questionnaire PHQ-9 Over the last 2 weeks, how often have you been bothered by any of the following problems? 1. Little interest or pleasure in doing things: not at all 2. Feeling down, depressed, or hopeless: not at all 3. Trouble falling or staying asleep, or sleeping too much: not at all 4. Feeling tired or having little energy: not at all 5. Poor appetite or overeating: not at all 6. Feeling bad about yourself - or that you are a failure or have let yourself or your family down: not at all 7. Trouble concentrating on things, such as reading the newspaper or watching television: not at all 8. Moving or speaking so slowly that other people could have noticed. Or the opposite - being so fidgety or restless that you have been moving around a lot more than usual: not at all 9. Thoughts that you would be better off or of hurting yourself in some way: not at all Total score: 0 Depression Screening Interpretation: Negative Depression Screening Done: Yes 88692 - PHQ-9 Billing: Yes Source: Developed by Drs. Jossue Causey, Mariola Paulino, Kuldeep Crow and colleagues, with an educational kristen from [employer]. Thrive Questionnaire Date Thrive assessed: 10/23/24 I am a: Patient What is your living situation today?: I have a steady place to live Within the past 12 months, did the food you bought not last and you didn't have the money to get more?: Never true Within the past 12 months, did you worry whether your food would run out before you got money to buy more?: Never true Do you have trouble paying for medicines?: No Do you have trouble getting transportation to medical appointments?: No Do you have trouble paying your heating and electricity bill?: No Do you have trouble taking care of your child, family member or friend?: No Do you have trouble with day-to-day activities such as bathing, preparing meals, shopping, managing finances, etc.?: No Are you currently unemployed and looking for a job?: No Are you interested in more education?: No Please select the resources that you would like help with: None Currently or been in a relationship where the following occur: No concerns reported THRIVE Score: 0 SUZETTE-7 AMB Questionnaire SUZETTE-7 Date SUZETTE - 7 assessed: 10/30/24 Source: Developed by Drs. Jossue Causey, Mariola Paulino, Kuldeep Crow and colleagues, with an educational kristen from [employer]. Review of Systems Const Denies body aches, Denies chills, Denies excessive sweating, Denies fatigue, Denies fever(s) and Denies headache(s) Eyes Denies blurry vision ENT Denies dysphagia, Denies vertigo, Denies dizziness, Denies headache(s), Denies hearing loss and Denies tinnitus Card Denies chest pain, Denies chest pain with activity, Denies syncope, Denies irregular heart rhythm and Denies dyspnea Resp Denies chest congestion, Denies cough, Denies hemoptysis, Denies dyspnea and Denies wheezing GI Denies abdominal pain, Denies melena, Denies hematochezia, Denies coffee ground emesis, Denies dysphagia, Denies diarrhea, Denies nausea and Denies vomiting Denies difficulty urinating, Denies dysuria, Denies urinary frequency, Denies urinary hesitancy and Denies urinary urgency Musc Denies arthralgias, Denies limited range of motion, Denies muscle cramps and Denies muscle weakness Skin/Breast Denies rash and Denies skin ulcer Neuro Denies Abnormal speech present, Denies confusion, Denies vertigo, Denies dizziness, Denies syncope, Denies headache(s), Denies memory loss and Denies seizure-like activity Psych Denies anxiety, Denies confusion, Denies depression, Denies memory loss, Denies panic attacks and Denies paranoia Endo Denies excessive sweating, Denies fatigue, Denies flushing, Denies polydipsia and Denies polyuria Aller/Immun Denies wheezing Physical exam (Primary Care) Vital Signs: Last Vital Signs Temp 97.3 F 01/29/25 10:21 Pulse 96 01/29/25 10:21 BP 142/84 H 01/29/25 10:21 Pulse Ox 98 01/29/25 10:21 Oxygen Delivery Method Room Air 01/29/25 10:21 BMI result Body Mass Index 27.9 Tobacco/Smoking Status: Tobacco use Status Tobacco use date assessed 01/29/25 01/29/25 10:26 Patient Tobacco Use Status Current everyday Tobacco 01/29/25 10:26 Tobacco use type Cigarette 01/29/25 10:26 e-Cigarette/Vaping Use Never Used 01/29/25 10:26 Are you ready to quit: No Tobacco cessation counseling provided: Yes Items discussed: Nicotine replacement Relapse Prevention: discussed the importance of a supportive environment, discussed negative mood or depression after quitting, weight gain after smoking is common and discussed dietary, exercise and/or lifestyle changes Number of minutes spent counselin CPT code: 88722 - 4-10 Minutes PHQ-9: PHQ-9 Score PHQ-9: Total score 0 01/29/25 10:26 Depression Screening Interpretation: Negative Thrive Assessment: Date of Thrive Assessment Date Thrive assessed 10/23/24 01/29/25 10:26 Currently or been in a relationship where the following occur: No concerns reported Const General: cooperative, comfortable, no acute distress, alert and awake; No confusion Orientation/consciousness: oriented to person, oriented to place, patient oriented x3 and No confusion HENMT Head: Yes normocephalic Ears: external ears normal and TM's normal bilaterally Face and sinus: No sinus tenderness Mouth: Normal oral and palatal mucosa present and tongue normal Teeth and gingiva: dentition normal and gingiva normal Throat: Yes posterior oropharynx normal, Yes tonsils normal and Yes uvula midline Eyes Conjunctivae: conjunctivae normal Sclerae: sclerae normal Pupils: Equal, round and reactive pupils present EOM: EOMs intact bilaterally Direct Ophthalmoscopy: No no photophobia Neck Neck: Yes no lymphadenopathy, No tender and Yes no JVD Thyroid: Thyroid normal Carotids: no bruits Chest Chest palpation & inspection: no tenderness Resp Effort & Inspection: normal respiratory effort, no audible wheezes, not labored and no stridor Auscultation: no crackles, no rales, no rhonchi and no wheezes Cardio Jugular venous distension: no JVD Rate: regular rate, not bradycardic and not tachycardic Rhythm: regular rhythm Bruits: no carotid bruits Peripheral pulses: Peripheral pulses 2+ throughout GI Inspection: Yes normal to inspection, No abdominal wall ecchymosis and No visible herniation Palpation (GI): Soft to palpation, nontender, no guarding, not rigid and No hepatosplenomegaly present Auscultation: normoactive bowel sounds General: Yes no CVA tenderness Back/Spine/Pelvis Back: no CVA tenderness and No back tenderness Cervical Spine: cervical ROM normal Thoracic/Lumbar Spine: thoracic and lumbar spine normal to inspection, straight leg raise negative bilaterally, No thoraco-lumbar ROM limited and No lumbar spinal tenderness Skin Lesions: no lesions Rashes: no rashes Wounds: no wounds Neuro General: oriented to person, oriented to place, patient oriented x3, CN's II-XI intact bilaterally and No confusion Cranial nerves: Yes Equal, round and reactive pupils present and Yes Normal accommodation reflex present Cognition (Neuro): normal cognition Speech: No Abnormal speech present Gait exam (Neuro): Normal gait present Motor exam (neuro): 5/5 motor strength present throughout Extrem Right upper extremity: full ROM; no cyanosis Left upper extremity: full ROM; no cyanosis Right lower extremity: no edema Left lower extremity: no edema Psych Appearance: grossly normal Mental Status: mental status grossly normal Affect: normal affect Attitude: cooperative Thought process: Normal thought process present Coding Level of Care Code Est Pt Prev Care >65y(52150) Diagnoses Annual physical exam Z00.00 Borderline high cholesterol E78.9 Tobacco dependence F17.200 Tubular adenoma of colon D12.6 Impaired glucose metabolism R73.09 Additional Codes PHQ-9 - 14543 - PHQ-9 Billing: Yes ([id number]) Vital Signs *Quality* - CPT code: 46544 - 4-10 Minutes ([id number]) Assessment & Plan Assessment & Plan (1) Annual physical exam: Code(s): Z00.00 - Encounter for general adult medical examination without abnormal findings Category: Medical Plan: As per HPI (2) Borderline high cholesterol: Code(s): E78.9 - Disorder of lipoprotein metabolism, unspecified Category: Medical Plan: Patient has a history of borderline high cholesterol and will recheck fasting lipids at next office visit. (3) Tobacco dependence: Code(s): F17.200 - Nicotine dependence, unspecified, uncomplicated Category: Medical Plan: patient does report he is almost ready to quit smoking. He reports he has cut down to 5 cigarettes per day at max.. Does have nicotine replacement available to him. He has drastically reduced his smoking over the last year. (4) Tubular adenoma of colon: Comment: multiple , 4 0n 2017 procedure Code(s): D12.6 - Benign neoplasm of colon, unspecified Category: Medical Plan: Patient has a history of multiple tubular adenoma colon polyps in 2024. . (5) Impaired glucose metabolism: Code(s): R73.09 - Other abnormal glucose Category: Medical Plan: Most recent fasting blood sugar slightly elevated 105. A1c of 5.7. He will continue working on low carbohydrate and low sugar diet. Orders: Orders Complete Blood Count no Diff Today E78.9 - Disorder of lipoprotein metabolism, unspecified Prostate Specific Antigen Scr Today K25.9 - Gastric ulcer, unspecified as acute or chronic, without hemorrhage or perforation, Z12.5 - Encounter for screening for malignant neoplasm of prostate Lipid Panel Today E78.9 - Disorder of lipoprotein metabolism, unspecified Hemoglobin A1c Today R73.01 - Impaired fasting glucose Comprehensive [place]. Panel Fast Today E78.9 - Disorder of lipoprotein metabolism, unspecified
[2025-01-29 10:21] VITALS: BP 142/84; PULSE 96; TEMP 36.3; O2SAT 98; BMI 27.9
[2025-01-29 10:59] VITALS: BP 132/82
== END 2025-01-29 13:04 | disposition home or self-care (01) ==
LOC: HO.HMCH 10:17
PROVIDERS: PCP Physician Assistant; Visit Provider Physician Assistant
DX: Z00.00 Encounter for general adult medical examination without abnormal findings (principal); E78.9 Disorder of lipoprotein metabolism, unspecified; F17.200 Nicotine dependence, unspecified, uncomplicated; D12.6 Benign neoplasm of colon, unspecified; R73.09 Other abnormal glucose

== ENCOUNTER → 2025-01-29 10:15 | Outpatient (BNVA) | payer MEDICARE, SELFPAY | PROVIDERS: PCP Physician Assistant; Visit Provider Physician Assistant | DX: Z00.00 Encounter for general adult medical examination without abnormal findings (principal); D12.6 Benign neoplasm of colon, unspecified; R73.09 Other abnormal glucose; F17.210 Nicotine dependence, cigarettes, uncomplicated; K25.9 Gastric ulcer, unspecified as acute or chronic, without hemorrhage or perforation; R73.01 Impaired fasting glucose | CPT/HCPCS: 96127; 99397 ==

== ENCOUNTER 2025-02-01 15:10 | Outpatient (AMB) | payer MEDICARE, SELFPAY ==
[2025-02-01 15:11] VITALS: BP 144/87; PULSE 95; BMI 27.5
--- NOTE | 2025-02-01 15:11 | A.OFFVIS_ITS ---
Vital Signs 02/01/25 15:11 Height 6 ft Weight 202 lb 13.204 oz BMI 27.5 BP 144/87 H Blood Pressure Location Lt brachial Position Sitting Pulse 95 Intake Visit Reasons: s/p egd/colon Intake Note: Patient in office today s/p EGD and colonoscopy. CC: Patient reports doing well and denies having any GI symptoms today. 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 He denies any current problems with his bowels or upper GI problems. There are no prior problems with anesthesia or sedation He does not have any heart problems, he is smoker and was recently diagnosed with COPD which currently is not treated. There are no infectious disease problems There is no known family history of colorectal cancer or polyps The patient is a 69-year-old male presenting with a follow-up for multiple colonic polyps identified in June 2023 and recent unintended weight loss. The previous colonoscopy showed extensive colonic polyposis without family history of colorectal pathology. Current interventions for COPD are stable as smoking has reduced to 16 cigarettes daily. Weight loss is significant; initially at 250 pounds approximately three years ago, now fluctuating around 206 pounds. This loss aligns with dental issues resulting in extractions, influencing solid food intake and overall dietary habits. The patient experiences unresolved peripheral neuropathy associated with prior back surgery, though manageable without medication. Although concerned about unexplained weight loss, particularly with a family history of cancer, abdominal discomfort or gastrointestinal irregularities are absent. Further diagnostic vigilance, particularly looking into potential endocrinological or metabolic dysfunction, is indicated due to recent lab anomalies suggesting elevated blood sugar. Appetite is slightly diminished but stable, correlating with less desire for second helpings and greater satisfaction with reduced portions. There is no current use of dietary supplements or specific food allergies reported. - Smokes 16 cigarettes daily, reduced from two packs daily. - Participates in golfing four times a week. - Experiences changes in diet due to recent dental extraction, primarily consuming liquids and softer foods. - No family history of colorectal cancer. - Positive family history of cancer, specific mention of a [id number] with pancreatic cancer. Orders: Orders TSH reflex Free T4 Today R63.4 - Abnormal weight loss, R73.01 - Impaired fasting glucose Hemoglobin A1c Today R63.4 - Abnormal weight loss, R73.01 - Impaired fasting glucose EGD/[place] Combo - GI Use Only Today R63.4 - Abnormal weight loss, R73.01 - Impaired fasting glucose LABS Laboratory Tests 01/08/25 11:51 Hemoglobin A1c % 5.7 TSH 2.26 EGD/COLONOSCOPY 01/17/25 Findings: Larynx: Normal Esophagus: GE junction at 42 cms. Focal esophagitis at GE junction and no Waters's. Stomach: Moderate diffuse gastric erythema - biopsies were obtained from the antrum. Two 4-5 mm non-bleeding ulcers Grade 2 flap valve on retroflexed examination of the cardia. Duodenum: Normal bulb and descending duodenum Biopsies were obtained from descending duodenum to check for celiac sprue Findings: Terminal Ileum: Not evaluated Cecum: A 6-7 mm sessile polyp adjacent to the appendicular orifice. Polyp was raised with 2 cc of [place] and ablated with a hot snare after obtaining a cold biopsy Ascending Colon: A 7-8 mm sessile polyp - removed with a hot snare. Transverse Colon: Two 8 to 12 mm sessile polyps - removed with a stiff hot snare. Descending Colon: Normal Sigmoid Colon: Three 8 to 12 mm sessile polyps - removed with a hot snare. Rectum: Three 5 to 10 mm diminutive appearing polyps - removed with a hot and cold snare. Ano-rectum: Moderate internal hemorrhoids Impression and Post Procedure Diagnosis: Endoscopy Findings: ESOPHAGUS: Focal esophagitis at GE junction and no Waters's. STOMACH: Moderate diffuse gastritis and two 4-5 mm non-bleeding ulcers DUODENUM: Normal - biopsied to check for celiac sprue Colonoscopy Findings: Nine small to medium sized polyps were removed Moderate diverticulosis seen in the sigmoid colon Moderate hemorrhoids on retroflexed exam. Plan: Pt has a FU appointment on 02/01/25 with Emilia Green, DIS[employer]ER. Repeat EGD in 3-4 months to confirm ulcers have healed. Repeat Colonoscopy in 3-5 years if polyps are adenomatous and 10 year if polyps are hyperplastic. A summary of above findings and relevant handouts were given to the patient. Pt advised to start Omeprazole 20 mg daily for gastric ulcers BIOPSIES SHOWED: A. Duodenal nodule, biopsy: Superficial fragments of duodenal mucosa within normal limits; preserved villous architecture and no increased intraepithelial lymphocytes seen. B. Duodenum, fold, biopsy: Mild chronic duodenitis with foveolar metaplasia suggestive of peptic etiology. C. Stomach, antrum, biopsy: Gastric antral mucosa within normal limits; negative for Helicobacter pylori, intestinal metaplasia and dysplasia. D. Stomach, ulcer, biopsy: Gastric antral/body mucosa with reactive gastropathy and reactive epithelial changes consistent with changes adjacent to ulcer; negative for Helicobacter pylori, intestinal metaplasia and dysplasia. E. Stomach, body, biopsy: Gastric body mucosa within normal limits; negative for Helicobacter pylori, intestinal metaplasia and dysplasia. F. Colon, cecum, polypectomy: Colonic mucosa with a prominent lymphoid aggregate; negative for dysplasia. G. Colon, ascending, polypectomy: Tubular adenoma, multiple fragments; negative for high-grade dysplasia. H. Colon, transverse, polypectomy x 2: Tubular adenoma (1); negative for high- grade dysplasia. I. Colon, sigmoid, polypectomy x3: Colonic mucosa with multiple lymphoid aggregates; negative for a hyperplastic or neoplastic process. J. Rectum, polypectomy x3: Hyperplastic polyp (3) Letter sent with the patient with biopsy results. Patient placed on the procedure recall list for repeat EGD in 3-4 months and repeat colonoscopy in 3 years. TODAYS VISIT [facility] Medical History (Updated 02/23/25 @ 10:01 by Cady Waldrop PA-C) Tubular adenoma of colon Nicotine dependence, cigarettes, uncomplicated Edentulous Lumbar spinal stenosis Back pain Arthritis Elevated cholesterol Blood clot due to device, implant, or graft COPD (chronic obstructive pulmonary disease) Cellulitis Surgical History History of endoscopy History of colonoscopy History of back surgery History of appendectomy Family History Other Substance use disorder Social History (Updated 02/23/25 @ 10:01 by Cady Waldrop PA-C) Housing: House Are you a primary overnight caregiver to a significant other at home: No Do you presently have visiting nurse or other home services: No Alcohol intake: former Comment: uses cane occasionally Patient Tobacco Use Status: Current everyday Tobacco user Tobacco use type: Cigarette Cigarettes Per Day: 5 Years Smoked: (onset 15yo, x 54yrs, max 1-2ppd, now 1/4ppd - 50+PYH) e-Cigarette/Vaping Use: Never Used Second Hand Smoke Exposure: Yes Advance Directives Date on File: 11/21/13 service: No Current occupational status: retired Cognitive needs: No Hearing needs: No Vision needs: Yes (reading glasses) Review of Systems Const Denies fatigue, Denies fever(s), Denies night sweats, Denies poor appetite and Denies weight loss ENT Reports Normal hearing present, Denies dental pain, Denies dysphagia, Denies hearing loss, Denies mouth pain, Denies odynophagia, Denies throat swelling, Denies tongue swelling and Reports other (Dentition adequate) Card Reports no additional complaints Resp Reports no additional complaints GI Details: Denies abdominal pain, Denies melena, Denies bloating, Denies hematochezia, Denies constipation, Denies GI cramping, Denies dysphagia, Denies excessive flatus, Denies early satiety, Reports dyspepsia, Reports heartburn, Denies diarrhea, Denies nausea, Denies odynophagia, Denies vomiting and Denies hematemesis Skin/Breast Denies pruritus, Denies lesions, Denies rash and Denies jaundice Neuro Reports Normal hearing present and Denies Abnormal speech present Endo Denies fatigue Aller/Immun Denies throat swelling and Denies tongue swelling Physical Exam Vital Signs: Last Vital Signs Pulse 95 02/01/25 15:11 BP 144/87 H 02/01/25 15:11 BMI result Body Mass Index 27.5 Const General: cooperative, no acute distress, well developed and well groomed Nutritional Appearance: well nourished and overweight Orientation/consciousness: oriented to person, oriented to place and oriented to time Limitations: No language barrier HEENT Head: Yes normocephalic and Yes atraumatic Eyes General: appearance normal, both eyes and all related structures Pupils: Equal, round and reactive pupils present Neck Neck: Yes normal visual inspection and Yes no lymphadenopathy Thyroid: Thyroid normal Resp Effort & Inspection: normal respiratory effort and able to speak in complete sentences Auscultation: clear to auscultation bilaterally Cardio Rate: regular rate Rhythm: regular rhythm Heart sounds: Normal, physiologic split S2 sound present Peripheral pulses: radial pulses present and posterior tibial pulses present GI Inspection: No distended and No Abdominal panniculus present Palpation (GI): Soft to palpation, nontender, no guarding, not rigid and No hepatosplenomegaly present Percussion: Yes normal to percussion Auscultation: normal bowel sounds Rectal Exam - Male: Yes deferred Skin General skin exam: no rashes or lesions noted, turgor normal, skin not dry, no jaundice, No spider nevi and no striae Rashes: no rashes Nails: normal Neuro General: oriented to person, oriented to place and oriented to time Cranial nerves: Yes Equal, round and reactive pupils present and Yes Normal hearing present Speech: No Abnormal speech present Extrem General: Yes normal to inspection, No clubbing, No cyanosis and No edema Psych Appearance: grossly normal and well kempt Mental Status: mental status grossly normal Speech and movement: Normal speech and movement present Affect: normal affect Attitude: cooperative Thought process: Normal thought process present and not confabulating Thought content: Normal thought content present Insight: Good insight present (Psych) Judgement: Good judgement present (Psych) Assessment & Plan Assessment & Plan (1) Multiple gastric ulcers: Code(s): K25.9 - Gastric ulcer, unspecified as acute or chronic, without hemorrhage or perforation Category: Medical Plan - The patient is a 69-year-old male presenting with follow-up for gastric ulcers and discussion of colon polyps history. - Reports two gastric ulcers identified, denies acid reflux or abdominal pain. - Notes decreased appetite and weight loss due to dental issues (no teeth), not illness. - History of numerous colon polyps, with a reduction from 12 to 2 recent findings. - No contact about upcoming endoscopy. Last endoscopy showed an ulcer in the stomach body. Because of this they want it repeated in 3-6 months. He was also started on omeprazole 20 mg to treat this. - Continue taking omeprazole daily as prescribed. - Await scheduling details for the endoscopy in 3-4 months. - Be cognizant of any gastrointestinal changes and report them promptly. - Plan to undergo next colonoscopy in 3 years unless symptoms warrant earlier intervention. - Ensure dietary modifications to accommodate current dental situation with a focus on maintaining caloric intake. - Contact the office for further clarification or if symptoms worsen. Orders: Referrals GI Procedure Notification K25.9 - Gastric ulcer, unspecified as acute or chronic, without hemorrhage or perforation Medications: Changed From omeprazole Take 1 capsule every morning 30 minutes before breakfast. 20 mg PO DAILY 60 days 60 caps 3RF K25.9 - Gastric ulcer, unspecified as acute or chronic, without hemorrhage or perforation To omeprazole Take 1 capsule every morning 30 minutes before breakfast. 20 mg PO DAILY 90 caps 1RF 90 days K25.9 - Gastric ulcer, unspecified as acute or chronic, without hemorrhage or perforation Coding Level of Care Code Est Pt Level 3 (21151) Diagnoses Multiple gastric ulcers K25.9
== END 2025-02-01 15:46 | disposition home or self-care (01) ==
LOC: HO.HGI 15:10
PROVIDERS: PCP Physician Assistant; Visit Provider Nurse Practitioner
DX: K25.9 Gastric ulcer, unspecified as acute or chronic, without hemorrhage or perforation (principal)
CPT/HCPCS: 99213

== ENCOUNTER → 2025-02-01 15:10 | Outpatient (BNVA) | payer MEDICARE, SELFPAY | PROVIDERS: PCP Physician Assistant; Visit Provider Nurse Practitioner | DX: K25.9 Gastric ulcer, unspecified as acute or chronic, without hemorrhage or perforation (principal); Z86.0101 Personal history of adenomatous and serrated colon polyps; R63.4 Abnormal weight loss; R73.01 Impaired fasting glucose; Z98.890 Other specified postprocedural states; F17.210 Nicotine dependence, cigarettes, uncomplicated | CPT/HCPCS: 99212 ==

== ENCOUNTER 2025-02-23 09:49 | Outpatient (AMB) | payer MEDICARE, SELFPAY ==
--- NOTE | 2025-02-23 07:55 | A.OFFVIS_ITS ---
Intake Visit Reasons: Current Smoker Allergies No Known Allergies (No Known Allergies*) Allergy (Verified 02/01/25 15:18) HPI HPI Current Smoker: Details: Initial visit for this 69yo smoker with a 50+PYH. Patient started smoking at age 15 for 54 years at 1-2ppd. Currently at 1/4ppd. . Denies marijuana use. Denies second hand smoke exposure. Denies exposure to chemicals or substances like asbestos. . Denies known family history of lung cancer. Denies personal history of cancers. Denies chest CT in last year. 02/15/[address] showed no suspicious nodules. . Denies recent travel outside the [place]. Denies recent respiratory illness or recent hospitalization for respiratory issues. Denies testing positive for COVID. Admits receiving COVID Vaccine. . Reports weight loss. He was 250 in 2022 and currently about 200lbs He has no teeth pending implants so not eating well. Denies fever, chills, new/worsening cough, hemoptysis, hoarseness or dysphagia. Denies significant chest pain, significant dyspnea or unintentional weight loss. Patient Lung Cancer Screening Questionnaire reviewed with patient by provider. . Shared Decision Making Completed. Patient meets criteria. Discussed in detail with patient, the risk vs benefit of LDCT screening. Patient consents to proceed with scan. Discussed smoking cessation. [facility] Medical History (Updated 02/23/25 @ 10:01 by Cady Waldrop PA-C) Tubular adenoma of colon Nicotine dependence, cigarettes, uncomplicated Edentulous Lumbar spinal stenosis Back pain Arthritis Elevated cholesterol Blood clot due to device, implant, or graft COPD (chronic obstructive pulmonary disease) Cellulitis Surgical History History of endoscopy History of colonoscopy History of back surgery History of appendectomy Family History Other Substance use disorder Social History (Updated 02/23/25 @ 10:01 by Cady Waldrop PA-C) Housing: House Are you a primary personal care aid to a significant other at home: No Do you presently have visiting nurse or other home services: No Alcohol intake: former Comment: uses cane occasionally Patient Tobacco Use Status: Current everyday Tobacco user Tobacco use type: Cigarette Cigarettes Per Day: 5 Years Smoked: (onset 15yo, x 54yrs, max 1-2ppd, now 1/4ppd - 50+PYH) e-Cigarette/Vaping Use: Never Used Second Hand Smoke Exposure: Yes Advance Directives Date on File: 11/21/13 service: No Current occupational status: retired Cognitive needs: No Hearing needs: No Vision needs: Yes (reading glasses) Assessment & Plan Assessment & Plan (1) Nicotine dependence, cigarettes, uncomplicated: Comment: (onset 15yo, x 54yrs, max 1-2ppd, now 1/4ppd - 50+PYH) Code(s): F17.210 - Nicotine dependence, cigarettes, uncomplicated Category: Medical Plan: - SDM visit completed today in office. - Patient meets criteria for LDCT for lung cancer screening purposes and is asymptomatic. - Smoking cessation counseling offered. Patients can always call [phone]. - Will arrange for a LDCT scan of the chest for screening purposes at [facility]. - Risks, benefits, and alternatives were discussed in detail and the patient agrees to proceed. - Risks discussed include but are not limited to: radiation exposure, anxiety during testing and while awaiting results, false negatives, false positives and possibility of additional intervention such as further imaging or surgical procedures for benign disease. - Benefits are obviously detection of lung cancer at an early stage which can lead to improved outcomes. - Discussed the importance of screening program compliance with adherence to yearly LDCT scan as scheduled - or sooner interval scans for personalized screening regimen. - Discussed follow up plan. Our office will send a letter discussing results and if needed set up phone call and office visit based on CT findings. - Patient educated on results categorization and the management decisions for suspicious findings potentially found on the screening LDCT scan. Any patient with a Lung RADS score of 3 or 4 will be reviewed by a multidisciplinary team at [facility] to form a plan of action in regards to scan findings. - If further work up is warranted for a suspicious lung finding this will be followed by the Lung Cancer Screening program in conjunction with the Thoracic Surgery Department at [facility]. - A copy of the office note and LDCT will be sent to the patient's PCP - as well as documentation on any associated further plans of care. - Incidental findings on LDCT are the PCP's responsibility. These findings are indicated with an S finding on the LDCT Assessment. A note discussing the findings will be sent to the PCP who is then responsible for further management. - All questions answered.? Coding Level of Care Code Lung Cancer Screening [id number] Diagnoses Nicotine dependence, cigarettes, uncomplicated F17.210
== END 2025-02-23 10:31 | disposition home or self-care (01) ==
LOC: HO.HPS 09:50
PROVIDERS: PCP Physician Assistant; Referring Provider Physician Assistant; Visit Provider Physician Assistant Medical
DX: F17.210 Nicotine dependence, cigarettes, uncomplicated (principal)
CPT/HCPCS: G0296

== ENCOUNTER 2025-02-23 10:12 | Outpatient (REF) | payer MEDICARE, SELFPAY ==
--- NOTE | ~2025-02-23 | CT_ITS ---
EXAMINATION: CT LUNG SCREENING HISTORY: F17.210 - Nicotine dependence, cigarettes, uncomplicated TECHNIQUE: Low dose axial images were obtained from the sternal notch to upper abdomen without IV contrast per standard departmental protocol. Sagittal and coronal reformatted images were also obtained and reviewed. One or more of the following techniques was used for dose reduction: Automated exposure control, adjustment of the mA and/or kV according to patient size, use of iterative reconstruction technique. DLP: 66 mGy-cm COMPARISON: Comparison is made with the prior examination dated 02/15/2023. FINDINGS: Lung nodules: There are punctate nodules in the superior segment of the right lower lobe (series 4, image 74), and in the left lower lobe (series 4, image 143). No suspicious pulmonary nodules are identified. Emphysema: mild Coronary Calcification: mild Aortic Arch Calcification: mild Potentially Significant Incidentals : none Additional Chest Findings: There is no pleural or pericardial effusion. No mediastinal or axillary lymphadenopathy is identified. Visualized upper abdomen: There are multiple hepatic cysts measuring up to 6.7 x 5.1 cm. The visualized portions of the spleen and right adrenal gland are unremarkable. There is thickening of the left adrenal gland. CT/CT lung screening IMPRESSION: No suspicious pulmonary nodules are identified. LUNG-RADS ASSESSMENT: Lung-RADS 2: Benign MANAGEMENT: Continue annual screening with LDCT in 12 months Category S: N/A Electronically signed by: Jossue Sow MD 02/23/2025 10:57 AM EDT
== END 2025-02-23 10:13 | disposition home or self-care (01) ==
LOC: HO.CT 10:12
PROVIDERS: PCP Physician Assistant; Visit Provider Physician Assistant Medical
DX: Z12.2 Encounter for screening for malignant neoplasm of respiratory organs (principal); F17.210 Nicotine dependence, cigarettes, uncomplicated
CPT/HCPCS: 71271; G0296

== ENCOUNTER → 2025-02-23 10:14 | Outpatient (BNV) | payer MEDICARE, SELFPAY | PROVIDERS: PCP Physician Assistant; Visit Provider Radiology Diagnostic Radiology | DX: Z12.2 Encounter for screening for malignant neoplasm of respiratory organs (principal); Z87.891 Personal history of nicotine dependence | CPT/HCPCS: 71271 ==